=== PATIENT | male | born 1940 | race Caucasian/White ===

== ENCOUNTER 2020-07-30 11:45 | Outpatient (REF) | payer MEDICARE, SELFPAY ==
[2020-07-30 14:41] LABS: Prostate Specific Antigen < 0.05 ng/mL (<0.05-4.0)
== END 2020-07-30 11:46 | disposition home or self-care (01) ==
LOC: HO.10HDL 11:45
PROVIDERS: Visit Provider Physician Assistant
DX: Z85.46 Personal history of malignant neoplasm of prostate (principal); Z12.5 Encounter for screening for malignant neoplasm of prostate
CPT/HCPCS: 84153

== ENCOUNTER 2020-10-15 10:58 | Outpatient (REF) | payer MEDICARE, SELFPAY ==
[2020-10-15 12:27] LABS: Hematocrit 36.1 % (42-52); Hemoglobin 11.9 g/dl (14.0-18.0); Mean Corpuscular Hemoglobin 32.3 pg (27.0-33.0); Mean Corpuscular Volume 98.1 fL (80-98); Mean Platelet Volume 11.8 fL (9.4-12.4); Platelet Count 155 X10*3/uL (160-400); Red Blood Count 3.68 X10*6/uL (4.60-5.80); Red Cell Distribution Width 16.1 % (11.0-16.0); White Blood Count 7.4 X10*3/uL (4.8-10.8)
[2020-10-15 13:07] LABS: Creatinine Urine 166.97 mg/dL; Microalbum/Creatinine Ratio Ur 17.3 ug/mg cr
[2020-10-15 14:14] LABS: Estimated Average Glucose 97 mg/dL
[2020-10-15 14:47] LABS: TSH reflex Free T4 0.92 uIU/mL (0.32-4.0)
[2020-10-15 15:05] LABS: Alanine Aminotransferase 18 U/L (0-40); Albumin Level 4.6 g/dL (3.5-5.0); Alkaline Phosphatase 66 U/L (39-117); Anion Gap 14 (12-20); Aspartate Amino Transferase 20 U/L (5-37); Bilirubin Total 0.6 mg/dL (0.0-1.0); Blood Urea Nitrogen 27 mg/dL (9-16); Calcium 9.3 mg/dL (8.4-10.2); Carbon Dioxide 27 mmol/L (22-29); Chloride 105 mmol/L (96-108); Cholesterol 155 mg/dL; Estimated Glomerular Filt Rate 55; Glucose Fasting 94 mg/dL (60-99); HDL Cholesterol 33 mg/dL; LDL Cholesterol Calculated 95 mg/dl; Potassium 5.1 mmol/L (3.3-5.1); Sodium 141 mmol/L (135-145); Total Protein 7.7 g/dL (6.5-8.0); Triglycerides 135 mg/dL
== END 2020-10-15 10:59 | disposition home or self-care (01) ==
LOC: HO.10HDL 10:58
PROVIDERS: Visit Provider Physician Assistant
DX: I10 Essential (primary) hypertension (principal); N64.4 Mastodynia
CPT/HCPCS: 36415; 80053; 80061; 82043; 83036; 84443; 85027

== ENCOUNTER 2020-11-19 13:50 | Outpatient (REF) | payer MEDICARE, SELFPAY ==
--- NOTE | ~2020-11-19 | MM_ITS ---
EXAMINATION: MM DIAGNOSTIC DIGITAL BREAST TOMOSYNTHESIS, BILATERAL US DIAGNOSTIC ULTRASOUND BREAST, BILATERAL CLINICAL INFORMATION: 80-year-old male with bilateral mastodynia. Patient notes bilateral nipple retraction for many years, not current complaint. No prior breast imaging. COMPARISON: None (current study represents initial baseline exam). TECHNIQUE: Digital breast tomosynthesis is performed in both the craniocaudal and mediolateral oblique views along with computer-aided detection (CAD). Synthesized 2D images are generated from the tomosynthesis. Additional bilateral CC views with nipples in profile performed. Ultrasound bilateral breasts is performed using grayscale imaging and color Doppler without and with harmonics. Both breasts are imaged retroareolar and periareolar regions. FINDINGS: There are scattered areas of fibroglandular density (ACR BI-RADS breast composition Category b). There is gynecomastia type retroareolar parenchymal pattern, greater on left. There is no mass or architectural abnormality. No abnormal calcifications. The axilla are unremarkable. There is bilateral nipple retraction, noted to be a chronic stable finding by patient.There is no skin thickening or coarsening of the stromal markings. Ultrasound demonstrates no cystic or solid mass, architectural abnormality, or focal duct ectasia. No skin thickening or edema tracking in soft tissue planes. Results are discussed with the patient at time of visit. MM/MM tomosynthesis diagnostic BI IMPRESSION: Bilateral gynecomastia, greater on left. ASSESSMENT: BI-RADS 2: Benign RECOMMENDATION: Patient's breast symptoms should be managed based on the clinical impression. If clinically indicated, further evaluation may be considered with surgical consult. Decision to proceed with biopsy should be based on clinical grounds and degree of clinical concern.
== END 2020-11-19 13:51 | disposition home or self-care (01) ==
LOC: HO.MAMMO 13:50
PROVIDERS: PCP Physician Assistant; Visit Provider Physician Assistant
DX: N64.4 Mastodynia (principal)
CPT/HCPCS: 76642; 77062; 77066

== ENCOUNTER 2021-04-23 11:01 | Outpatient (REF) | payer MEDICARE, SELFPAY ==
[2021-04-23 14:06] LABS: Estimated Average Glucose 91 mg/dL; Hemoglobin A1c % 4.8 %
[2021-04-23 14:14] LABS: Hemoglobin 10.9 g/dl (14.0-18.0)
[2021-04-23 14:15] LABS: Hematocrit 33.6 % (42-52); Mean Corpuscular HGB Conc 32.4 g/dl (31.0-36.0); Mean Corpuscular Hemoglobin 33.2 pg (27.0-33.0); Mean Corpuscular Volume 102.4 fL (80-98); Mean Platelet Volume 12.9 fL (9.4-12.4); Platelet Count 144 X10*3/uL (160-400); Red Blood Count 3.28 X10*6/uL (4.60-5.80); Red Cell Distribution Width 16.8 % (11.0-16.0)
[2021-04-23 14:22] LABS: PLT ABN DIST 1
[2021-04-23 14:37] LABS: Alanine Aminotransferase 16 U/L (0-40); Albumin Level 4.5 g/dL (3.5-5.0); Alkaline Phosphatase 60 U/L (39-117); Anion Gap 14 (12-20); Aspartate Amino Transferase 18 U/L (5-37); Bilirubin Total 0.9 mg/dL (0.0-1.0); Blood Urea Nitrogen 19 mg/dL (9-16); Calcium 8.9 mg/dL (8.4-10.2); Carbon Dioxide 25 mmol/L (22-29); Chloride 106 mmol/L (96-108); Cholesterol 144 mg/dL; Estimated Glomerular Filt Rate > 60; Glucose Fasting 88 mg/dL (60-99); HDL Cholesterol 33 mg/dL; LDL Cholesterol Calculated 90 mg/dl; Potassium 4.6 mmol/L (3.3-5.1); Sodium 140 mmol/L (135-145); Total Protein 7.6 g/dL (6.5-8.0); Triglycerides 108 mg/dL
[2021-04-23 14:44] LABS: TSH reflex Free T4 0.45 uIU/mL (0.32-4.0)
== END 2021-04-23 11:02 | disposition home or self-care (01) ==
LOC: HO.10HDL 11:01
PROVIDERS: Visit Provider Physician Assistant
DX: I10 Essential (primary) hypertension (principal)
CPT/HCPCS: 36415; 80053; 80061; 83036; 84443; 85027

== ENCOUNTER 2021-06-16 10:39 | Outpatient (REF) | payer MEDICARE, SELFPAY ==
[2021-06-16 14:17] LABS: Basophils Percent Auto 0.3 % (0-2); Eosinophils Absolute Auto 0.2 X10*3/uL (0.0-0.4); Eosinophils Percent Auto 1.9 % (0-4); Hematocrit 34.2 % (42.0-52.0); Imm Gran Abs Auto 0.16 X10*3/uL (0.00-0.03); Imm Gran Pct Auto 1.5 % (0.0-0.4); Lymphocytes Absolute Auto 1.8 X10*3/uL (1.2-4.9); Lymphocytes Percent Auto 17.1 % (20-40); MANUAL DIFF FLAG SCAN; Mean Corpuscular HGB Conc 32.2 g/dl (31.0-36.0); Mean Corpuscular Hemoglobin 33.3 pg (27.0-33.0); Mean Corpuscular Volume 103.6 fL (80.0-98.0); Mean Platelet Volume 12.4 fL (9.4-12.4); Monocytes Absolute Auto 2.6 X10*3/uL (0.1-1.2); Neutrophils Absolute Auto 5.6 x10*3/uL (2.0-8.3); Neutrophils Percent Auto 54.2 % (45-73); Platelet Count 135 X10*3/uL (160-400); Red Cell Distribution Width 17.2 % (11.0-16.0); SCAN SMEAR FLAG 1; White Blood Count 10.4 X10*3/uL (4.8-10.8)
[2021-06-16 14:36] LABS: SLIDE REVIEW VERIFIED
[2021-06-16 14:39] LABS: Lactate Dehydrogenase 259 U/L (118-273)
[2021-06-16 14:48] LABS: Ferritin 184 ng/mL (20-250)
[2021-06-16 15:40] LABS: Folate > 20.0 ng/mL (> or = 4.0); Vitamin B12 1130 pg/mL (200-900)
== END 2021-06-16 10:40 | disposition home or self-care (01) ==
LOC: HO.10HDL 10:39
PROVIDERS: Visit Provider Physician Assistant
DX: D53.9 Nutritional anemia, unspecified (principal)
CPT/HCPCS: 36415; 82607; 82728; 82746; 83615; 85025

== ENCOUNTER 2021-09-18 06:59 | Day surgery (SDC) | payer MEDICARE, SELFPAY ==
[2021-09-11 15:39] VITALS: BMI 21.2
--- NOTE | 2021-09-17 10:30 | HO.ANESPROP2 ---
Documented by User: Sushma Jc NP 09/17/21 10:30 HPI - Anesthesia Eval Consult details Narrative: 81yo M for Bone Marrow Biopsy PMFSH Active Problems Active Problems: All Active Problems (Updated 09/11/21 @ 15:39 by Amie Crisostomo RN) Nipple pain (Acute) Breast pain, right (Acute) Breast pain, left (Acute) Medicare annual wellness visit, initial (Acute) Hypothyroidism (Acute) BPH (benign prostatic hyperplasia) (Acute) Peripheral vascular disease (Acute) Macrocytic anemia (Acute) Pre-op evaluation (Acute) H/O prostate cancer (Acute) HTN (hypertension) (Acute) Past Medical History Medical History BPH (benign prostatic hyperplasia) COVID-19 vaccine series completed Elevated cholesterol H/O prostate cancer HTN (hypertension) Hypothyroid PVD (peripheral vascular disease) Surgical History Surgical History H/O colonoscopy Hx of cataract extraction Hx of prostatectomy Hx of umbilical hernia repair Social History Social History Housing: House Are you a primary child care center administrator to a significant other at home: No Do you presently have visiting nurse or other home services: No Alcohol intake: former Patient Tobacco Use Status: Never used Tobacco Use of substances other than those prescribed or required for medical reasons: No Have you been hit, kicked, punched, or otherwise hurt by someone within the past year? If so, by whom?: No Are you DNR?: No Advance Directives: Yes Advance Directives Information Provided: Yes (will bring copy of HCP DOS) Advance Directives on File: Yes Advance Directives Date on File: 09/18/21 Recently lost weight without trying: No Eating poorly because of decreased appetite: No Nutrition Risks: Surgical patient >75years service: No Current occupational status: retired Meds Allergies Allergy/AdvReac Type Severity Reaction Status Date / Time No Known Allergies Allergy Verified 09/18/21 07:06 [No Known Allergies*] Home Medications Medication Instructions Recorded Confirmed Last Taken Type ascorbic acid (vitamin C) 1,000 mg 1 g PO DAILY 07/30/21 09/11/21 Unknown History tablet (Vitamin C) aspirin 325 mg capsule 325 mg PO DAILY 07/30/21 09/11/21 Unknown History cholecalciferol (vitamin D3) 50 50 mcg PO DAILY 07/30/21 09/11/21 Unknown History mcg (2,000 unit) capsule (Vitamin D3) cyanocobalamin (vitamin B-12) 1,000 mcg PO DAILY 07/30/21 09/11/21 Unknown History 1,000 mcg capsule ferrous sulfate 325 mg (65 mg 32 mg PO Q OTHER DAY 07/30/21 09/11/21 Unknown History iron) tablet multivitamin 1 tab PO DAILY 07/30/21 09/11/21 Unknown History ketorolac 0.5 % eye drops 1 drp OPHTHALMIC-LEFT DAILY 09/04/21 09/04/21 Unknown History prednisolone acetate 1 % eye 1 drp OPHTHALMIC-LEFT DAILY 09/04/21 09/04/21 Unknown History drops,suspension Exam Exam Date and Time: September 17, 2021 1030 Height,Weight and Vital Signs: Height 5 ft 9 in Weight 65.317 kg Pertinent Lab Results Pertinent Lab Results: Laboratory Tests 09/04/21 09/04/21 10:19 10:19 WBC 11.6 H Hgb 11.5 L Hct 35.5 L Plt Count 133 L Sodium 136 Potassium 4.6 Chloride 102 Carbon Dioxide 26 BUN 25 H Creatinine 1.17 Assessment and Plan Assessment Anesthesia Assessment: Chart Reviewed Documented by User: Mar Puga MD 09/18/21 07:48 PMFSH Active Problems Active Problems: All Active Problems (Updated 09/11/21 @ 15:39 by Amie Crisostomo RN) Nipple pain (Acute) Breast pain, right (Acute) Breast pain, left (Acute) Medicare annual wellness visit, initial (Acute) Hypothyroidism (Acute) BPH (benign prostatic hyperplasia) (Acute) Peripheral vascular disease (Acute) Macrocytic anemia (Acute) Pre-op evaluation (Acute) H/O prostate cancer (Acute) HTN (hypertension) (Acute) S/p bilateral carotid endarterectomy Past Medical History Medical History BPH (benign prostatic hyperplasia) COVID-19 vaccine series completed Elevated cholesterol H/O prostate cancer HTN (hypertension) Hypothyroid PVD (peripheral vascular disease) Family History Family history of problems with anesthesia: No Surgical History Surgical History H/O colonoscopy Hx of cataract extraction Hx of prostatectomy Hx of umbilical hernia repair History of Problems with Anesthesia: No Social History Social History Housing: House Are you a primary child care center administrator to a significant other at home: No Do you presently have visiting nurse or other home services: No Alcohol intake: former Patient Tobacco Use Status: Never used Tobacco Use of substances other than those prescribed or required for medical reasons: No Have you been hit, kicked, punched, or otherwise hurt by someone within the past year? If so, by whom?: No Are you DNR?: No Advance Directives: Yes Advance Directives Information Provided: Yes (will bring copy of HCP DOS) Advance Directives on File: Yes Advance Directives Date on File: 09/18/21 Recently lost weight without trying: No Eating poorly because of decreased appetite: No Nutrition Risks: Surgical patient >75years service: No Current occupational status: retired Meds Allergies Allergy/AdvReac Type Severity Reaction Status Date / Time No Known Allergies Allergy Verified 09/18/21 07:06 [No Known Allergies*] Home Medications Medication Instructions Recorded Confirmed Last Taken Type ascorbic acid (vitamin C) 1,000 mg 1 g PO DAILY 07/30/21 09/11/21 Unknown History tablet (Vitamin C) aspirin 325 mg capsule 325 mg PO DAILY 07/30/21 09/11/21 Unknown History cholecalciferol (vitamin D3) 50 50 mcg PO DAILY 07/30/21 09/11/21 Unknown History mcg (2,000 unit) capsule (Vitamin D3) cyanocobalamin (vitamin B-12) 1,000 mcg PO DAILY 07/30/21 09/11/21 Unknown History 1,000 mcg capsule ferrous sulfate 325 mg (65 mg 32 mg PO Q OTHER DAY 07/30/21 09/11/21 Unknown History iron) tablet multivitamin 1 tab PO DAILY 07/30/21 09/11/21 Unknown History ketorolac 0.5 % eye drops 1 drp OPHTHALMIC-LEFT DAILY 09/04/21 09/04/21 Unknown History prednisolone acetate 1 % eye 1 drp OPHTHALMIC-LEFT DAILY 09/04/21 09/04/21 Unknown History drops,suspension Exam Height,Weight and Vital Signs: Height 5 ft 9 in Weight 65.317 kg Vital Signs Temp Pulse Resp BP Pulse Ox 09/18/21 07:10 98.4 F 87 16 163/73 H 97 Airway Mallampati Class: III (Small mouth opening) TM Dist: >3cm Neck ROM: Full Loose/Missing/Broken Teeth: Yes (Some missing. Extractions) Heart: RRR Lungs: CTAB Assessment and Plan Assessment Anesthesia Assessment: Anesthesia Plan Discussed Final Anesthetic Review Family History of Problems with Anesthesia: No History of Problems with Anesthesia: No NPO: Yes ASA Class: III Final Preanesthetic Review: No Changes in Pt Med Stat, Meds/Allgs Chart Reviewed, Consent Obtained/Reviewed and Anes Risks/Benef Reviewed Patient Risk: Intermediate Procedure Risk: Low Assessment/Block/Sedation in SS: Assess/Block/Sedation-SS Anesthetic Plan Anesthetic Plan: MAC: Disposition: Standard PACU
[2021-09-18 07:10] VITALS: BP 163/73; PULSE 87; RESP 16; TEMP 36.9; O2SAT 97
[2021-09-18] MEDS: Lactated Ringers 1,000 ML 100 ML IVCONT (07:29)
[2021-09-18 08:54] VITALS: BP 89/45; PULSE 64; RESP 18; TEMP 36.8; O2SAT 95
--- NOTE | 2021-09-18 09:01 | PM.HEMONCBM ---
Bone Marrow Aspiration - Bone Marrow Aspiration Procedure:: *Service Date: [09/18/21] Bone marrow aspirate and biopsy under MAC. Pre Op Diagnosis:: Macrocytic anemia. Post Op Diagnosis:: Same. Surgeon:: Simeon Marks Anesthesia:: MAC. Consent:: Informed consent obtained from the patient for the procedure. Pros and cons of biopsy explained. The patient was willing to proceed with the procedure under MAC & local anesthesia. Procedure in Detail:: *Service Date: [_Mis Current Date] *Procedure: Bone marrow aspiration and biopsy under MAC. *Pre Op Dx: Anemia. *Post Op Dx: Same. *Surgeon: simeon Marks. The patient was positioned prone. The left posterior superior iliac spine prepped and draped. Patient was anesthetized under MAC. Under aseptic precautions, 5 ml of 1% lidocaine used for local anesthesia. Bone marrow aspirate was performed. With the Jamshidi needle, a core biopsy obtained without any complications. Specimens were sent for Coronel stain, flow cytometry and cytogenetics. Biopsy was sent for histology. The patient tolerated the procedure well. Bandage was applied and patient was positioned on his back for 10 to 15 minutes after the procedure. The patient was advised to call us if he develops any pain or swelling at the surgical site. Follow up in 2 weeks.
[2021-09-18 09:10] VITALS: BP 109/49; PULSE 58; RESP 18; O2SAT 96
[2021-09-18 09:24] VITALS: BP 115/50; PULSE 62; RESP 18; O2SAT 97
[2021-09-18 09:25] LABS: Bone Marrow SEE SEPARATE REPORT
[2021-09-18 09:33] VITALS: BP 125/58; PULSE 63; RESP 18; TEMP 36.4; O2SAT 100
[2021-09-18 09:50] LABS: Baso%MD 0.2 %; Eos%MD 1.6 %; Hematocrit 29.8 % (42.0-52.0); Hemoglobin 9.8 g/dl (14.0-18.0); IG%MD 2.4 %; Lymph%MD 14.6 %; Mean Corpuscular HGB Conc 32.9 g/dl (31.0-36.0); Mean Corpuscular Hemoglobin 32.9 pg (27.0-33.0); Mono%MD 27.5 %; Neut%MD 53.7 %; Platelet Count 136 X10*3/uL (160-400); Red Blood Count 2.98 X10*6/uL (4.60-5.80); White Blood Count 12.4 X10*3/uL (4.8-10.8)
[2021-09-18 10:22] LABS: Band Neutrophils Percent 6 % (3-5); Eosinophils Absolute Manual 0.2 X10*3/uL (0.0-0.4); Eosinophils Percent Manual 2 % (0-4); Lymphocytes Absolute Manual 1.9 X10*3/uL (1.2-4.9); Lymphocytes Percent Manual 15 % (20-40); Macrocytosis 1+ (5-14) /OIF; Microcytosis 1+ (5-14) /OIF; Monocytes Percent Manual 24 % (2-11); Neutrophils Absolute Manual 7.3 X10*3/uL (2.0-8.3); Neutrophils Percent Manual 53 % (45-73); Platelet Estimate SLIGHTLY DECREASED (NORMAL); Platelet Morphology Comment NORMAL; RBC Morphology NOTED; Spherocytes 1+ (0-2) /OIF
== END 2021-09-18 10:06 | disposition home or self-care (01) ==
PROVIDERS: Pathology Anatomic Pathology & Clinical Pathology; PCP Physician Assistant; Visit Provider Internal Medicine Medical Oncology
PROC: (CPT 38221; principal; 2021-09-18 08:00)
DX: D53.9 Nutritional anemia, unspecified (principal); I10 Essential (primary) hypertension; Z79.899 Other long term (current) drug therapy; Z85.46 Personal history of malignant neoplasm of prostate
CPT/HCPCS: 38222; 36415; 85007; 85027; 85097; 88184; 88185; 88237; 88264; 88305; 88311; 88313; 88342; 88374; J1642; J2250

== ENCOUNTER 2021-10-21 10:23 | Outpatient (REF) | payer MEDICARE, SELFPAY ==
[2021-10-21 11:33] LABS: Estimated Average Glucose 88 mg/dL; Hemoglobin A1c % 4.7 %
[2021-10-21 12:03] LABS: Alanine Aminotransferase 17 U/L (0-40); Albumin Level 4.5 g/dL (3.5-5.0); Alkaline Phosphatase 65 U/L (39-117); Anion Gap 14 (12-20); Aspartate Amino Transferase 20 U/L (5-37); Bilirubin Total 0.7 mg/dL (0.0-1.0); Blood Urea Nitrogen 23 mg/dL (9-16); Calcium 9.2 mg/dL (8.4-10.2); Carbon Dioxide 26 mmol/L (22-29); Chloride 102 mmol/L (96-108); Cholesterol 160 mg/dL; Estimated Glomerular Filt Rate 57; Glucose Fasting 98 mg/dL (60-99); HDL Cholesterol 29 mg/dL; LDL Cholesterol Calculated 100 mg/dl; Potassium 4.7 mmol/L (3.3-5.1); Sodium 137 mmol/L (135-145); Total Protein 7.7 g/dL (6.5-8.0); Triglycerides 156 mg/dL
[2021-10-21 12:31] LABS: Prostate Specific Antigen Scr < 0.05 ng/mL (<0.05-4.0); TSH reflex Free T4 0.78 uIU/mL (0.32-4.0)
== END 2021-10-21 10:24 | disposition home or self-care (01) ==
LOC: HO.LAB 10:23
PROVIDERS: PCP Physician Assistant; Visit Provider Physician Assistant
DX: Z12.5 Encounter for screening for malignant neoplasm of prostate (principal); E03.9 Hypothyroidism, unspecified; I10 Essential (primary) hypertension
CPT/HCPCS: 36415; 80053; 80061; 83036; 84153; 84443

== ENCOUNTER 2022-01-22 12:22 | Emergency (ER) | payer MEDICARE, SELFPAY ==
--- NOTE | ~2022-01-22 | XR_ITS ---
EXAMINATION: XR FINGER, RIGHT CLINICAL INFORMATION: Question of foreign body right index finger COMPARISON: None TECHNIQUE: 4 views of the right index finger. FINDINGS: Degenerative changes are present at the DIP joints most marked in the second digit with large osteophytes. Degenerative changes are also present at the second and third metacarpal phalangeal joint and the radiocarpal joint. No radiopaque opaque foreign bodies are seen. XR/XR finger RT min 2V IMPRESSION: Degenerative changes without fracture or retained foreign body.
[2022-01-22 12:27] VITALS: BP 164/73; PULSE 82; RESP 16; TEMP 36.2; O2SAT 98; BMI 20.7
[2022-01-22 13:54] VITALS: BP 130/83; PULSE 79; RESP 14; O2SAT 97
[2022-01-22] MEDS: Lidocaine HCl 2 % MPF 5 ML VIAL SUBCUT (14:26)
[2022-01-22] MEDS: Diphth,Pertus(ACell),Tet Adult 0.5 ML SYRINGE IM (14:27)
--- NOTE | 2022-01-22 14:45 | PC.NURSE ---
xray staff behind on their assignments. still waiting on xr.
--- NOTE | 2022-01-22 14:49 | ED.EXTPRO ---
HPI - Extremity Problem General Chief complaint: Extremity Problem Stated complaint: infection in r index finger Time Seen by Provider: 01/22/22 14:12 Source: patient Mode of arrival: ambulatory History of Present Illness HPI Narrative: 81-year-old male states that 2 days ago he was working with some plywood and a piece of wood got stuck into his right index finger and he feels like there may still be a piece inside as it has become more swollen despite soaking his finger. He thinks that his last tetanus was over 10 years ago. Related Data Home Medications Medication Instructions Recorded Confirmed ascorbic acid (vitamin C) 1,000 mg 1 g PO DAILY 07/30/21 12/12/21 tablet (Vitamin C) aspirin 325 mg capsule 325 mg PO DAILY 07/30/21 12/12/21 cholecalciferol (vitamin D3) 50 50 mcg PO DAILY 07/30/21 12/12/21 mcg (2,000 unit) capsule (Vitamin D3) cyanocobalamin (vitamin B-12) 1,000 mcg PO DAILY 07/30/21 12/12/21 1,000 mcg capsule ferrous sulfate 325 mg (65 mg 32 mg PO Q OTHER DAY 07/30/21 12/12/21 iron) tablet multivitamin 1 tab PO DAILY 07/30/21 12/12/21 Previous Rx's Medication Instructions Recorded levothyroxine 88 mcg tablet 88 mcg PO QAM #90 tabs 12/01/21 atorvastatin 40 mg tablet 40 mg PO DAILY #90 tabs 12/26/21 amoxicillin 875 mg-potassium 1 tab PO Q12H 5 days #10 tabs 01/22/22 clavulanate 125 mg tablet Allergies Allergy/AdvReac Type Severity Reaction Status Date / Time No Known Allergies Allergy Verified 12/12/21 11:53 [No Known Allergies*] Review of Systems Review of Systems: Pertinent positives and negatives as stated in HPI 10 point review of systems is otherwise negative. [facility] Past Medical History Source: nursing notes reviewed Medical History BPH (benign prostatic hyperplasia) COVID-19 vaccine series completed Elevated cholesterol Hypothyroid PVD (peripheral vascular disease) Surgical History H/O colonoscopy History of carotid endarterectomy Hx of cataract extraction Hx of prostatectomy Hx of umbilical hernia repair Social History Social History Household Members: Spouse Housing: House Are you a primary medicare compliance auditor to a significant other at home: No Do you presently have visiting nurse or other home services: No Alcohol intake: former Patient Tobacco Use Status: Never used Tobacco Advance Directives: Yes Advance Directives on File: Yes Advance Directives Date on File: 09/18/21 service: No Current occupational status: retired Physical Exam Vital Signs: Vital Signs: Last Vital Signs Temp 97.2 F 01/22/22 12:27 Pulse 79 01/22/22 13:54 Resp 14 01/22/22 13:54 BP 130/83 01/22/22 13:54 Pulse Ox 97 01/22/22 13:54 O2 Del Method 01/22/22 13:54 BMI result Body Mass Index 20.7 VITAL SIGNS: Reviewed. GENERAL: Well developed, well nourished, in no acute distress. HEAD: Normocephalic/atraumatic EYES: PERRLA, EOMI OROPHARYNX: no oral lesions noted, posterior pharynx clear LUNGS: Normal breath sounds. No adventitious sounds or accessory muscle use. SpO2<97> CARDIOVASCULAR: Regular rate and rhythm without noted murmurs ABDOMEN: Soft, non-tender, non-distended with bowel sounds. MUSCULOSKELETAL: No tenderness, deformities, or effusions noted on gross inspection. EXTREMITIES: No cyanosis, clubbing or edema; RIGHT INDEX FINGER: It is quite swollen over the radial aspect of the right index finger near the DIP SKIN: Inspection of the skin reveals no rashes NEUROLOGIC: Alert and oriented x 4. Course Course Course Narrative: 81-year-old male with history and clinical presentation consistent with possible foreign body within the right index finger but obvious swelling and inflammation after a piece plywood was stuck inside of his finger. Patient underwent x-ray which on my interpretation as the official read is still pending and not appreciating the foreign body. Incision and drainage was performed with minimal purulence drainage and inability to obtain any foreign body or visualize any foreign body. Patient was provided with antibiotics given the proximity of the joint as well as being provided with a referral to see Dr. Cintron. Procedures Abscess I/D Site: hand Side (if applicable): right Local Anesthetic: lidocaine 1% Amount of anesthesia used (mL): 5 Technique: incised with blade Amount of fluid expressed (mL): 1 Sent for culture/gram staining?: No Irrigation: No Packing used?: none Discharge Plan Discharge Clinical Impression: Finger infection Patient Disposition: Home, Self-Care Instructions: Incision and Drainage (ED) Additional Instructions: 1. Resume all home medications as prescribed. 2. Complete the entire course of antibiotics as prescribed. 3. Recommend that you use [id number] Tylenol/ibuprofen as needed for pain control. You may soak the finger once daily in Epsom salt solution and then cover with a Band-Aid. 4. You have been provided a referral for a hand specialist and should call the office today and set up an appointment for re-evaluation. Please do not hesitate to return to the emergency room if you notice there is no improvement. Prescriptions: New amoxicillin-pot clavulanate 875-125 mg tablet 1 tab PO Q12H 5 Days Qty: 10 0RF Rx Instructions: Next 0 should start tomorrow, initial dose given in the emergency room. No Action levothyroxine 88 mcg tablet 88 mcg PO QAM Qty: 90 1RF atorvastatin 40 mg tablet 40 mg PO DAILY Qty: 90 0RF multivitamin Tablet 1 tab PO DAILY ascorbic acid (vitamin C) [Vitamin C] 1,000 mg Tablet 1 g PO DAILY ferrous sulfate 325 mg (65 mg iron) Tablet 32 mg PO Q OTHER DAY Rx Instructions: 1/2 tablet every other day cholecalciferol (vitamin D3) [Vitamin D3] 50 mcg (2,000 unit) Capsule 50 mcg PO DAILY cyanocobalamin (vitamin B-12) 1,000 mcg Capsule 1,000 mcg PO DAILY aspirin 325 mg Capsule 325 mg PO DAILY Referrals: Douglas Schultz PA-C [Primary Care Provider] - Laura Cintron MD [Physician] - (?Rt index finger foreign body, none seen on XR or I&D. Started on Augmentin.)
[2022-01-22 14:52] VITALS: BP 142/69; PULSE 75; RESP 14; TEMP 36.7; O2SAT 97
[2022-01-22] MEDS: Amoxicillin/Potassium Clav 875 MG TABLET PO (15:09)
== END 2022-01-22 15:15 | disposition home or self-care (01) ==
PROVIDERS: Emergency Provider Student in an Organized Health Care Education/Training Program; PCP Physician Assistant
DX: M79.644 Pain in right finger(s) (principal); L03.011 Cellulitis of right finger
CPT/HCPCS: 10060; 73140; 90471; 90715; 99283; 99284

== ENCOUNTER 2022-01-27 09:12 | Outpatient (REF) | payer MEDICARE, SELFPAY ==
--- NOTE | ~2022-01-27 | XR_ITS ---
EXAMINATION: XR HAND, RIGHT CLINICAL INFORMATION: Pain COMPARISON: None TECHNIQUE: PA, lateral, and oblique views of the right hand. FINDINGS: Lateral view is limited due to patient positioning. There is abnormal appearance of the lunate question related to old trauma. There is old trauma to the fifth metacarpal bone. No acute fracture or dislocation is seen. There is arthritis at the DIP joint of the second finger and first INTERMEDIATE joint and radiocarpal joint. There is slight ulnar deviation of the DIP joint of the second finger. There are cystic changes versus osteopenia in the wrist. Soft tissues are unremarkable. XR/XR hand RT min 3V IMPRESSION: Question old trauma to the lunate and fifth metacarpal bone. Arthritis at the DIP joint of the second finger, first INTERMEDIATE joint and radiocarpal joint. Cystic changes versus osteopenia in the wrist.
== END 2022-01-27 09:13 | disposition home or self-care (01) ==
LOC: HO.HOSX 09:12
PROVIDERS: Visit Provider Physician Assistant
DX: M79.644 Pain in right finger(s) (principal); S61.230A Puncture wound without foreign body of right index finger without damage to nail, initial encounter; W45.8XXA Other foreign body or object entering through skin, initial encounter; Y93.H3 Activity, building and construction; Y92.007 Garden or yard of unspecified non-institutional (private) residence as the place of occurrence of the external cause; Y99.8 Other external cause status; L08.89 Other specified local infections of the skin and subcutaneous tissue
CPT/HCPCS: 73130; 99202

== ENCOUNTER → 2022-02-02 10:08 | Outpatient (BNVA) | payer MEDICARE, SELFPAY | PROVIDERS: PCP Physician Assistant; Visit Provider Physician Assistant | DX: L08.9 Local infection of the skin and subcutaneous tissue, unspecified (principal) | CPT/HCPCS: 99212 ==

== ENCOUNTER 2022-09-15 14:36 | Outpatient (REF) | payer MEDICARE, SELFPAY ==
--- NOTE | ~2022-09-15 | XR_ITS ---
EXAMINATION: XR CHEST CLINICAL INFORMATION: Left-sided chest pain and tenderness. Shortness of breath. COMPARISON: None TECHNIQUE: 2 views of the chest were obtained. FINDINGS: The lungs are well expanded. Small to moderate left-sided pleural effusion with associated airspace opacity. There may be mild pleural thickening at the periphery of the left upper hemithorax. The right lung is clear. No pneumothorax. The cardiomediastinal silhouette is within normal limits. Mild degenerative changes of the spine. XR/XR chest 2V IMPRESSION: Small to moderate left pleural effusion with associated airspace opacity which could represent atelectasis or pneumonia. There may be mild pleural thickening at the periphery of the left upper hemithorax.
== END 2022-09-15 14:37 | disposition home or self-care (01) ==
LOC: HO.XRAY 14:36
PROVIDERS: PCP Physician Assistant; Visit Provider Internal Medicine Medical Oncology
DX: R07.9 Chest pain, unspecified (principal)
CPT/HCPCS: 71046

== ENCOUNTER 2022-09-23 11:13 | Day surgery (SDC) | payer MEDICARE, SELFPAY ==
--- NOTE | ~2022-09-23 | XR_ITS ---
EXAMINATION: XR CHEST CLINICAL INFORMATION: Status post left thoracentesis COMPARISON: Chest x-ray of September 15, [address] scan of September 23, 2022 TECHNIQUE: AP portable view of the chest was obtained. FINDINGS: No significant left pleural effusion is seen postthoracentesis. There is atelectatic change seen at the left lung base. No pneumothorax is appreciated. Heart normal size. No evidence of pulmonary edema. Old healed right rib fracture. XR/XR chest 1V IMPRESSION: Status post left thoracentesis with no significant residual pleural effusion identified.. No pneumothorax. Left base atelectasis.
--- NOTE | ~2022-09-23 | US_ITS ---
EXAMINATION: US LEFT THORACENTESIS CLINICAL INFORMATION: Left pleural effusion. COMPARISON: CT scan of same day. TECHNIQUE: Ultrasound-guided left thoracentesis. FINDINGS: Informed consent was obtained from the patient prior to the procedure. During this process, the procedure and potential alternatives were explained, along with the intended outcome and benefits. The risks of the procedure, as well as the risk of not doing the procedure, were discussed. The patient was given the opportunity to ask questions regarding the procedure and appeared competent to make medical decisions. A signed consent form which documents this discussion was placed in the medical record. Using sterile technique and ultrasound guidance, a 4 Mongolian Yueh needle was directed into the left pleural space. A total of 1.5 L of serosanguineous fluid was drained. Fluid samples were sent for laboratory studies. Patient tolerated the procedure without difficulty. No significant remaining fluid is seen within the left pleural space with a small amount of complex fluid. US/US thoracentesis IMPRESSION: Left thoracentesis with removal of 1.5 L of serosanguineous fluid.
--- NOTE | ~2022-09-23 | CT_ITS ---
EXAMINATION: CT CHEST WITH CONTRAST CLINICAL INFORMATION: Pleural effusion. COMPARISON: Chest x-ray 09/15/2022. TECHNIQUE: Multidetector volumetric CT imaging of the chest was obtained after the administration of 65 mL of Omnipaque 350 intravenous contrast without immediate adverse reactions. Axial MIP volume rendering provided. Sagittal and coronal reformatted images were obtained. This CT examination was performed using dose optimization techniques as appropriate, variously including the following: *Automated exposure control *Adjustment of mA and/or kV according to patient size (this includes techniques or standardized protocols for targeted exams where dose is matched to indication/reason for exam; i.e. extremities or head) *Use of iterative reconstruction technique DLP: 108 mGy-cm FINDINGS: LUNGS: Mild centrilobular emphysema. Cystic honeycombing with increased subpleural reticulation in the periphery of the posterior right upper lobe, right lower lobe, and anterior left upper lobe. The left lower lobe is not well assessed due to atelectasis. There is no dominant pulmonary nodule. There is a 3.6 x 2.6 cm left upper lobe mass invading the chest wall pleura and mediastinal pleura. MEDIASTINUM: Mediastinal invasion as above. No bulky mediastinal adenopathy. The ascending aorta and aortic arch are normal in caliber. The descending aorta is aneurysmal at the thoracoabdominal junction measuring 3.5 x 2.8 cm. There is diffuse irregular atherosclerotic plaque throughout the aortic arch and descending aorta. There is ulcerated plaque causing a saccular aneurysm of the juxtarenal aorta measuring 1.3 cm on the left. PLEURA: There is a moderate nonsimple pleural effusion causing compressive atelectasis of the left lower lobe. There are abnormal areas of enhancing irregularly thickened pleural nodularity measuring 3.7 x 1.7 cm in the anterior left upper chest, 5.5 x 0.7 cm posterolateral left lower chest and 1.9 x 1.3 cm in the anterior left lower chest. AXILLA: No axillary adenopathy. UPPER ABDOMEN: Simple right renal cyst. No imaging follow-up is recommended. OSSEOUS STRUCTURES: No suspicious osseous lesions. CT/CT chest w IV con IMPRESSION: 3.6 x 2.6 cm left upper lobe mass invading the chest wall pleura and mediastinal pleura suspicious for pulmonary malignancy. Additional areas of abnormal parietal pleural thickening in the left hemithorax suspicious for pleural metastatic disease. Recommend correlation with fluid cytology. Biopsy may be necessary for diagnosis. This was called to Dr. Marks at 8:30 AM on 09/29/2022. 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 Moderate nonsimple left pleural effusion suspicious for malignant effusion. Mild emphysema. Mild pulmonary fibrosis. 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 Consider referral to a vascular specialist. Fleischner guidelines were followed.
[2022-09-23 11:32] VITALS: BMI 20.7
[2022-09-23 12:28] LABS: Prothrombin Time 11.4 SEC (10.0-13.1)
[2022-09-23] MEDS: iohexoL 350 MG/ML 100 ML INFUS..BTL IV (13:41)
[2022-09-23 14:27] VITALS: BP 136/68; PULSE 90; RESP 18; TEMP 36.9; O2SAT 96
[2022-09-23 14:42] VITALS: BP 122/55; PULSE 90; RESP 18; O2SAT 94
[2022-09-23] MEDS: Lidocaine HCl 1 % MPF 5 ML VIAL SUBCUT (14:45)
[2022-09-23 14:55] VITALS: BP 116/62; PULSE 92; RESP 18; O2SAT 94
[2022-09-23 15:25] VITALS: BP 111/60; PULSE 85; RESP 18; O2SAT 94
[2022-09-23 15:35] LABS: MN% 85.4 %; PMN% 14.6 %; RBC Pleural Fluid 0.174 X10*3/uL; WBC Pleural Fluid 1.961 X10*3/uL
[2022-09-23 15:55] VITALS: BP 113/69; PULSE 91; RESP 18; TEMP 36.8; O2SAT 95
[2022-09-23 16:14] LABS: Lymphocytes Pleural Fluid 88 %; Monocytes Pleural Fluid 5 %; Neutrophils Pleural Fluid 5 %
[2022-09-23 16:15] LABS: BF Shift QC OK YES; Other Cells Plerual Fl 2 %
[2022-09-24 05:22] LABS: LDH Pleural Fluid 1139 U/L; Total Protein Pleural Fluid 5.5 GM/DL
[2022-10-26 11:05] LABS: FISH ALK 2P 23 Rearrangement QNS; FISH NSCLC ROS1 6q22 QNS; FISH RET Gene Rearrangement QNS; FISH,MET Amplification QNS
== END 2022-09-23 16:38 | disposition home or self-care (01) ==
PROVIDERS: Internal Medicine Medical Oncology; Radiology Diagnostic Radiology; PCP Physician Assistant; Visit Provider Radiology Diagnostic Radiology
DX: D49.9 Neoplasm of unspecified behavior of unspecified site (principal); J91.0 Malignant pleural effusion; J98.11 Atelectasis; D53.9 Nutritional anemia, unspecified; Z79.82 Long term (current) use of aspirin; Z79.899 Other long term (current) drug therapy
CPT/HCPCS: 32555; 36415; 71045; 71260; 81445; 83615; 84157; 85610; 85730; 87070; 87073; 87205; 88112; 88305; 88341; 88342; 88360; 88374; 89051

== ENCOUNTER 2022-10-13 08:57 | Outpatient (REF) | payer MEDICARE, SELFPAY ==
--- NOTE | ~2022-10-13 | PE_ITS ---
EXAMINATION: Fluorine-18 FDG PET/CT Scan CLINICAL INDICATION: Initial treatment management. Malignant left-sided pleural effusion and left-sided lung cancer. PROCEDURE: 63 minutes following the intravenous administration of 15.2 mCi of fluorine 18 FDG, images from the base of the skull to the mid thighs were obtained using a combined PET/CT scanner with CT scan based attenuation correction. No intravenous contrast was administered. Transverse, coronal, sagittal, and volume reconstruction projections were obtained. The patient's blood glucose as determined by a finger stick, was 94 mg/dl immediately prior to injection. The radiotracer was injected intravenously through left antecubital superficial vein, without any complications. Total CT exam dose-length product 298.76 mGy-cm * These CT images were obtained using dose optimization techniques as appropriate, variously including the following: Automated exposure control * Adjustment of mA and/or kV according to patient size (this includes techniques or standardized protocols for targeted exams where dose is matched to indication/reason for exam; i.e. extremities or head) * Use of iterative reconstruction technique COMPARISON: CT of the chest done on 09/23/2022. FINDINGS: NECK AND VISUALIZED HEAD: No FDG avid disease. THORAX: Abnormal. Diffuse nodular solid masslike pleural thickening associated with intense FDG avidity is noted along the mid anterior medial aspect of the left pleural space inseparable from the mediastinal pleural surface with SUV max of 9.4 (84/267). The dominant nodular masslike pleural thickening in this region measures approximately 4.4 cm at its maximum transverse dimension (219/698). Additional FDG avid nodular pleural thickening is also noted within the anterior mid lateral aspect of the pleural space as well as the base of the pleural space, consistent with additional sites of disease. Specific note is made of intense FDG avid solid-appearing soft tissue mass measuring approximately 2.6 x 1.3 cm with SUV max of 7.3 seen along the peridiaphragmatic region, most consistent with pleural-based solid mass along the anterior inferior costophrenic sulcus. In addition, multi loculated simple-appearing ipsilateral pleural effusion, partial collapse consolidation of left lower lobe of the lung is noted as well. No pleural effusions shows intense FDG avidity at the base of the left hemithorax with SUV max of 7.1 (129/267). Nonspecific groundglass opacities are present within the aerated part of both left upper and left lower lobe of the lung. Subcentimeter nodular opacity without any FDG avidity is noted at superior segment of right lower lobe of the lung (221/698), with underlying subpleural cystic changes. No definite evidence of any suspicious right-sided lung nodule or mass. No evidence of any FDG avid mediastinal, hilar, axillary or internal mammary lymphadenopathy. ABDOMEN AND PELVIS: Remarkable for intense focal FDG avidity at the right-sided large bowel, likely proximal ascending colon with SUV max of 6.5 (167/267). No FDG avid focal liver, splenic or adrenal disease. MUSCULOSKELETAL: Diffusely abnormal. Moderately intense diffuse increased FDG avidity is noted throughout the entire axial skeleton and both proximal femur, nonspecific in appearance, may represent bone marrow infiltrative, replacement process versus physiologic hyperplastic bone marrow. 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 VASCULAR: Diffuse atherosclerotic disease of the aorta including coronary arterial calcific atherosclerotic disease. Suprarenal mild abdominal aortic aneurysm measuring 3.5 x 2.7 cm. Infrarenal focal bulge is noted at the level of the region of the left renal artery measuring approximately 3.7 cm at its maximum transverse dimension. PET/PET CT fusion skull to thigh IMPRESSION: 1. Extensive nodular masslike multifocal FDG avid pleural thickenings are present throughout the entire left hemithorax with most pronounced changes seen at anterior, medial aspect of the mid part of the left hemithorax with the dominant solid-appearing soft tissue mass measuring approximately 4.4 cm at its maximum transverse dimension with SUV max of 9.4, inseparable from the adjacent mediastinal pleura. Additional solid masslike FDG avid pleural thickenings are also present especially involving anterior inferior costophrenic sulcus, measures approximately 2.6 x 1.3 cm with SUV max of 7.3. In addition, multiloculated FDG avid pleural effusion is also present with most pronounced changes seen within the base of the pleural space. The findings are most consistent with either primary or metastatic pleural malignancy. 2. Partial collapse consolidation involving both left lower greater than upper lobes. 3. No FDG avid mediastinal and/or hilar or axillary or internal mammary lymphadenopathy or FDG avid disease within the contralateral right lung or pleural space. 4. Subcentimeter non-FDG avid nodular opacity within the superior segment of right lower lobe of the lung with underlying subpleural cystic changes. 5. Indeterminate moderately intense FDG avidity involving likely proximal ascending colon at right iliac fossa with SUV max of 6.5, for which direct visualization/colonoscopy is recommended for further clarification, if not recently performed. 6. Moderately intense diffuse increased FDG avidity throughout the entire axial skeleton as well as both proximal femur, may represent bone marrow infiltrative/replacement process versus physiologic hyperplastic changes. 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
== END 2022-10-13 08:58 | disposition home or self-care (01) ==
LOC: HO.PET 08:57
PROVIDERS: PCP Physician Assistant; Visit Provider Internal Medicine Medical Oncology
DX: Z13.89 Encounter for screening for other disorder (principal)

== ENCOUNTER 2022-10-26 10:09 | Day surgery (SDC) | payer MEDICARE, SELFPAY ==
[2022-10-26] VITALS (9 sets, daily range): BP systolic 93–131; BP diastolic 52–62; PULSE 90–104; RESP 16–18; TEMP 36.8–37.1; O2SAT 92–94; BMI 20.7
--- NOTE | 2022-10-26 | CT_ITS ---
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 COMPARISON: PET/CT fusion skull through thigh 10/13/2022. TECHNIQUE: Following explaining CT fluoroscopy-guided posterior iliac crest biopsy procedure, benefits and risks, a written consent was obtained. Patient was placed prone and preliminary CT imaging was obtained. Markers were placed along the posterior right iliac spine and repeat CT imaging was obtained. An optimal marker was selected and marked on the skin. The marked site was cleaned and draped in the usual sterile manner with 2% chlorhexidine solution. 1% lidocaine was injected at the puncture site. Through a small skin incision, a 16-gauge guide needle was advanced from the skin to the bony cortex of the posterior iliac crest. Using a simple drill, the needle was advanced into the posterior iliac crest bone marrow. Two syringes containing heparin and EDTA were attached to the needle and simple bone marrow aspirate was performed. Subsequently, a longer 16-gauge needle was advanced coaxially and a 2-pass core biopsy of the bone marrow was obtained. Postprocedure, both needles were withdrawn and complete hemostasis was achieved at the puncture site. Sample collected was handed to the music box mechanic for further processing. Simple dressing was applied postprocedure. Patient tolerated the procedure extremely well. Conscious sedation was given to the patient and patient monitored during and after the exam. CT/CT biopsy aspirate bone marrow FINDINGS/IMPRESSION: On the urinary CT imaging, there is no cortical bony abnormality seen. There is some groundglass appearance in the bone marrow. SI joints are normal. Colonic diverticulosis seen. Successful CT fluoroscopy-guided right posterior iliac crest bone marrow biopsy performed.
--- NOTE | ~2022-10-26 | XR_ITS ---
EXAMINATION: XR CHEST CLINICAL INFORMATION: Assess for recurrent pleural effusion. COMPARISON: 09/23/2022 chest radiograph. TECHNIQUE: Frontal view of the chest was obtained. FINDINGS: There has been interval development of a small left pleural effusion with superjacent hazy opacities. The right lung is clear. The heart and mediastinal structures are unremarkable. XR/XR chest 1V IMPRESSION: Small left pleural effusion with probable layering represents interval increase from the previous study.
[2022-10-26 11:45] LABS: INTERNATIONAL NORM RATIO 1.2 (0.9-1.1); Prothrombin Time 13.8 SEC (10.0-13.1)
[2022-10-26 11:46] LABS: Anion Gap 14 (12-20); Blood Urea Nitrogen 14 mg/dL (9-16); Carbon Dioxide 26 mmol/L (22-29); Chloride 101 mmol/L (96-108); Creatinine Clr Calc Pharmacy 57.5; Estimated Glomerular Filt Rate > 60; Potassium 3.9 mmol/L (3.3-5.1); Sodium 137 mmol/L (135-145)
[2022-10-26 11:47] LABS: Partial Thromboplastin Time 41.4 SEC (26.0-36.4)
[2022-10-26 13:34] LABS: Bone Marrow SEE SEPARATE REPORT
== END 2022-10-26 16:13 | disposition home or self-care (01) ==
PROVIDERS: Internal Medicine Medical Oncology; Pathology Anatomic Pathology & Clinical Pathology; PCP Physician Assistant; Visit Provider Radiology Diagnostic Radiology
PROC: (CPT 38221; principal; 2022-10-26 11:30)
DX: C34.12 Malignant neoplasm of upper lobe, left bronchus or lung (principal); J90 Pleural effusion, not elsewhere classified; D69.6 Thrombocytopenia, unspecified; D53.9 Nutritional anemia, unspecified; D72.829 Elevated white blood cell count, unspecified; E03.9 Hypothyroidism, unspecified; Z79.899 Other long term (current) drug therapy
CPT/HCPCS: 36415; 38222; 71045; 80051; 81455; 82565; 84520; 85610; 85730; 88184; 88185; 88237; 88264; 88280; 88305; 88311; 88313; 88341; 88342; 88374; 99152; J1642; J2250; J3010

== ENCOUNTER 2022-10-29 06:48 | Day surgery (SDC) | payer MEDICARE, SELFPAY ==
--- NOTE | ~2022-10-29 | IR_ITS ---
PROCEDURE: IR INSERTION OF TUNNEL CATHETER CLINICAL INFORMATION: Left lung adenocarcinoma. COMPARISON: 10/26/2022 TECHNIQUE: Right internal jugular port catheter placement with ultrasound and fluoroscopic guidance. FINDINGS: Informed consent was obtained from the patient prior to the procedure. During this process, the procedure and potential alternatives were explained along with the intended outcome and benefits. The risks of the procedure, including the possibility of an unsuccessful procedure, as well as the risk of not doing the procedure, were discussed. The patient was given the opportunity to ask questions regarding the procedure and appeared competent to make decisions. A signed consent form documenting this discussion was placed in the medical record. A time-out procedure was performed. The patient was placed supine on the fluoroscopy table. The right neck and chest were prepped and draped in usual sterile fashion. The right neck was evaluated for venous access site and the right internal jugular vein is seen to be patent. An ultrasound PACS image was obtained. ?All elements of maximal sterile barrier technique followed including use of cap, mask, sterile gown, sterile gloves, a sterile full body drape and hand hygiene. Also followed skin preparation with 2% chlorhexidine for cutaneous antisepsis, and sterile ultrasound preparation with sterile gel and probe cover when applicable.? Venous access was achieved into the right IJ vein using ultrasound and fluoroscopic guidance with a 5 F Micropuncture set. A small skin lexus was made at the access site. The 0.018 wire was exchanged for a 0.035 in J wire, which was advanced to the IVC to maintain access during dissection of the pocket and the tunneling process. Attention was then directed to the chest approximately 2 cm below the clavicle. Regular 1% lidocaine and lidocaine with 1:100,000 epinephrine was used for local anesthetic and a 3 cm incision was made. The pocket was dissected to the size of the port and then a subcutaneous tunnel was made to connect to the venotomy site. The catheter was pulled through the tunnel. The micropuncture set sheath in the IJ was exchanged over the wire for a peel-away sheath. The inner dilator and J wire were removed and the catheter was advanced through the peel away sheath. The peel away sheath was subsequently removed. The catheter was then adjusted so its tip lies within the superior right atrium. The catheter was trimmed and connected to the port reservoir. The port reservoir was then sutured into the port pocket with a 2-0 monofilament suture. The port was aspirated and flushed, then packed with 5 mL of heparin solution. The incision site was sutured using 4.0 Polysorb for the subcuticular layer. Tissue adhesive was then placed over the incision site. The patient tolerated the procedure without difficulty. FLUOROSCOPY TIME: 1.1 minutes. DAP: 60 cGycm2. CATHETER LENGTH: 23.5 cm. CONSCIOUS SEDATION: The patient received intravenous conscious sedation under my direct supervision. A registered nurse monitored the patient and the patient's vital signs throughout the procedure. The total sedation time was 60 minus minutes. A total of 1 mg of Versed and 25 mcg fentanyl was given for good effect. IR/IR cvc insert tunnel w prt/conservation engineer IMPRESSION: Placement of 6.6-Eritrean right internal jugular port catheter as described. Catheter tip lies within the superior right atrium.
[2022-10-29 07:14] VITALS: BMI 20.7
[2022-10-29] MEDS: Lidocaine HCl 1 % MPF 5 ML VIAL 20 ML SUBCUT (10:09)
[2022-10-29] MEDS: Lidocaine HCl 1% PF/Epi 1:200,000 30 ML VIAL 10 ML SUBCUT (10:10)
[2022-10-29 10:38] VITALS: BP 136/71; PULSE 105; RESP 18; TEMP 37.1; O2SAT 90
[2022-10-29] MEDS: ondansetron HCL 4 MG/2 ML VIAL IVPUSH (10:49)
[2022-10-29 10:54] VITALS: BP 123/76; PULSE 102; RESP 18; O2SAT 96
[2022-10-29 11:10] VITALS: BP 116/66; PULSE 93; RESP 16; O2SAT 96
[2022-10-29 11:25] VITALS: BP 115/69; PULSE 98; RESP 16; TEMP 36.4; O2SAT 94
== END 2022-10-29 12:07 | disposition home or self-care (01) ==
LOC: HO.SSS 06:48
PROVIDERS: PCP Physician Assistant; Visit Provider Radiology Diagnostic Radiology
DX: C34.92 Malignant neoplasm of unspecified part of left bronchus or lung (principal); J91.0 Malignant pleural effusion; Z79.899 Other long term (current) drug therapy
CPT/HCPCS: 36561; 38222; 99152; 99153; C1769; C1788; J0690; J1642; J2250; J2405; J3010

== ENCOUNTER 2022-11-06 08:46 | Inpatient (IN) | payer MEDICARE, SELFPAY ==
[2022-11-06] VITALS (15 sets, daily range): BP systolic 105–120; BP diastolic 50–78; PULSE 75–90; RESP 16–20; TEMP 36.5–37.2; O2SAT 93–99; BMI 20.7; BMI 19.1
--- NOTE | 2022-11-06 09:28 | ED.GENADULT ---
HPI - General Adult General Chief complaint: General Medical Stated complaint: From [facility] per EMS History of Present Illness HPI narrative: Patient is a 82-year-old male with a history of lung cancer history of hypertension hyperlipidemia just received chemotherapy on October 30. Patient experience nausea vomiting diarrhea went to [facility], transferred to [facility] for further evaluation of pancytopenia. Patient was found to be very weak very tired having nausea vomiting and having black stool. Noted to have a hemoglobin of 5.9. Patient also noted to have an elevated BUN creatinine of 31 and 0.84. Was transfused x1 unit of blood at [facility]. Sent to the ED for further evaluation. An exam done over there show black stool. However patient is on iron supplements. No gross melena was noted. Patient feels very weak tired. Related Data Home Medications Medication Instructions Recorded Confirmed ascorbic acid (vitamin C) 1,000 mg 1 g PO DAILY 07/30/21 11/06/22 tablet (Vitamin C) aspirin 325 mg capsule 325 mg PO DAILY 07/30/21 11/06/22 cholecalciferol (vitamin D3) 50 50 mcg PO DAILY 07/30/21 11/06/22 mcg (2,000 unit) capsule (Vitamin D3) cyanocobalamin (vitamin B-12) 1,000 mcg PO DAILY 07/30/21 11/06/22 1,000 mcg capsule ferrous sulfate 325 mg (65 mg 32 mg PO Q OTHER DAY 07/30/21 11/06/22 iron) tablet multivitamin 1 tab PO DAILY 07/30/21 11/06/22 acetaminophen 500 mg tablet 500 mg PO Q6H PRN Pain 10/20/22 11/06/22 atorvastatin 40 mg tablet 40 mg PO BEDTIME 11/06/22 11/06/22 ondansetron 8 mg disintegrating 8 mg PO Q8H PRN Nausea 11/06/22 11/06/22 tablet Previous Rx's Medication Instructions Recorded levothyroxine 88 mcg tablet 88 mcg PO QAM #90 tabs 09/07/22 dexamethasone 4 mg tablet 4 mg PO BID #60 tabs 10/20/22 folic acid 1 mg tablet 1 mg PO DAILY #90 tabs 10/20/22 oxycodone 5 mg tablet 5 mg PO Q6H PRN Breakthrough Pain, 10/20/22 Moderate #50 tabs oxycodone 5 mg tablet 5 mg PO Q6H PRN Breakthrough Pain, 10/20/22 Moderate #50 tabs Allergies Allergy/AdvReac Type Severity Reaction Status Date / Time No Known Allergies Allergy Verified 10/29/22 07:14 [No Known Allergies*] Review of Systems Review of Systems: Positive generalized malaise. Positive nausea vomiting earlier Yes all other systems are reviewed and are negative PMFSH Past Medical History Attestation statement: The following information was validated with the patient. Medical History BPH (benign prostatic hyperplasia) COVID-19 vaccine series completed Elevated cholesterol H/O prostate cancer HTN (hypertension) Hypothyroid Non-small cell lung cancer (NSCLC) Port-A-Cath in place PVD (peripheral vascular disease) Surgical History H/O colonoscopy History of bone marrow biopsy History of carotid endarterectomy History of thoracentesis Hx of cataract extraction Hx of prostatectomy Hx of umbilical hernia repair Social History Social History Household Members: Spouse Housing: House Are you a primary customer care voice consultant to a significant other at home: No Do you presently have visiting nurse or other home services: No Alcohol intake: former Patient Tobacco Use Status: Never used Tobacco Smoked in Last 30 Days: No Use of substances other than those prescribed or required for medical reasons: No Advance Directives: Yes Advance Directives Information Provided: Yes Advance Directives on File: No Advance Directives Date on File: 09/18/21 service: No Current occupational status: retired Physical Exam ED Vital Signs: Vital Signs - 24 hr 11/06/22 08:52 11/06/22 09:11 Temperature 98.0 F Pulse Rate 85 Respiratory Rate 20 Blood Pressure 119/65 Pulse Oximetry 93 96 Oxygen Delivery Method Room Air Nasal Cannula Oxygen Flow Rate 2 BMI result Body Mass Index 20.7 Appearance: Alert. Oriented X3. No acute distress. Eyes: Pupils equal, round and reactive to light. ENT: Pharynx normal. Neck: Normal inspection. Neck supple. No lymph nodes noted. No crepitus CVS: Normal heart rate and rhythm. Pulses normal. Normal S1 and S2 Respiratory: No respiratory distress. Breath sounds normal. No Wheezing. No rales Abdomen: Soft and nontender. No rigidity. No distention. good BS x4 Skin: Skin warm and dry. Normal skin color. Normal skin turgor. Extremities: No lower extremity edema. Neurovascular intact to all extremities. No Lacerations. No Rash Neuro: Oriented X 3. No motor deficit. No sensory deficit. Moving all extermities. No slurred speech Medical Decision Making Medical Decision Making MDM Narrative: Patient has same pancytopenia likely related to chemotherapy. Had HD unit of transfusion done at [facility]. Patient's hemoglobin at [place] is 6.4. Will transfuse the 2nd unit. Risk and benefit discussed with patient. Case discussed with hospitalist team. Patient is not neutropenic at this time. BUN and creatinine has corrected. Case discussed with the hospitalist team for admission. Differential Diagnosis Anemia, pancytopenia Consult Healthcare Provider Management of the patient was discussed with: Hospitalist Lab Data MDM Lab Attestation statement: I reviewed the patient's lab results. 11/06/22 09:37 11/06/22 09:37 Labs: Lab Results 11/06/22 11/06/22 11/06/22 Range/Units 09:37 09:37 09:37 WBC 8.9 (4.8-10.8) X10*3/uL RBC 2.26 L D (4.60-5.80) X10*6/uL Hgb 6.4 L* D (14.0-18.0) g/dl Hct 20.4 L* D (42.0-52.0) % MCV 90.3 (80.0-98.0) fL MCH 28.3 (27.0-33.0) pg MCHC 31.4 (31.0-36.0) g/dl RDW 20.9 H (11.0-16.0) % Plt Count 10 L* D (160-400) X10*3/uL MPV Not Reportable Immature Gran % (Auto) 1.9 H (0.0-0.4) % Neut % (Auto) 87.7 H (45-73) % Lymph % (Auto) 3.5 L (20-40) % [place] % (Auto) 6.7 (2-11) % Eos % (Auto) 0.0 (0-4) % Baso % (Auto) 0.2 (0-2) % Lymph # (Auto) 0.3 L (1.2-4.9) X10*3/uL [place] # (Auto) 0.6 (0.1-1.2) X10*3/uL Eos # (Auto) 0.0 (0.0-0.4) X10*3/uL Baso # (Auto) 0.0 (0.0-0.2) X10*3/uL Abs Immat Gran (auto) 0.17 H (0.00-0.03) X10*3/uL Absolute Neuts (auto) 7.8 (2.0-8.3) x10*3/uL Absolute Nucleated RBC 0.030 H (0.0-0.012) X10*3/uL Nucleated RBC % (auto) 0.3 H (0.0-0.2) /100WBC Sodium 139 (135-145) mmol/L Potassium 3.7 (3.3-5.1) mmol/L Chloride 108 (96-108) mmol/L Carbon Dioxide 21 L (22-29) mmol/L Anion Gap 14 (12-20) BUN 23 H (9-16) mg/dL Creatinine 0.79 (0.5-1.4) mg/dL Estim Creat Clear Calc 67.0 Estimated GFR > 60 Random Glucose 113 (60-115) mg/dL Calcium 7.5 L D (8.4-10.2) mg/dL COVID-19 (EDDIE) Negative (Negative) COVID-19 Clin Com See Note External Record Review External record reviewed: Outside ED record Chronic Conditions Lung cancer Discharge Plan Discharge Clinical Impression: Lung cancer, Pancytopenia Patient Disposition: Admitted As Inpatient Prescriptions: No Action levothyroxine 88 mcg tablet 88 mcg PO QAM Qty: 90 1RF multivitamin Tablet 1 tab PO DAILY ascorbic acid (vitamin C) [Vitamin C] 1,000 mg Tablet 1 g PO DAILY ferrous sulfate 325 mg (65 mg iron) Tablet 32 mg PO Q OTHER DAY Rx Instructions: 1/2 tablet every other day cholecalciferol (vitamin D3) [Vitamin D3] 50 mcg (2,000 unit) Capsule 50 mcg PO DAILY cyanocobalamin (vitamin B-12) 1,000 mcg Capsule 1,000 mcg PO DAILY aspirin 325 mg Capsule 325 mg PO DAILY oxycodone 5 mg Tablet 5 mg PO Q6H PRN (Reason: Breakthrough Pain, Moderate) Qty: 50 0RF Rx Instructions: Partial Fill upon patient request. oxycodone 5 mg Tablet 5 mg PO Q6H PRN (Reason: Breakthrough Pain, Moderate) Qty: 50 0RF Rx Instructions: Partial Fill upon patient request. acetaminophen [Tylenol Ex Str Rapid Release] 500 mg Tablet 500 mg PO Q6H PRN (Reason: Pain) folic acid 1 mg Tablet 1 mg PO DAILY Qty: 90 3RF dexamethasone 4 mg Tablet 4 mg PO BID Qty: 60 3RF Rx Instructions: Take 4 mg b.i.d. day before and day after [place]. Every 3 weeks. atorvastatin 40 mg tablet 40 mg PO BEDTIME ondansetron 8 mg tablet,disintegrating 8 mg PO Q8H PRN (Reason: Nausea)
[2022-11-06 09:41] LABS: MANUAL DIFF FLAG NO
[2022-11-06 09:46] LABS: Basophils Percent Auto 0.2 % (0-2); Imm Gran Abs Auto 0.17 X10*3/uL (0.00-0.03); Imm Gran Pct Auto 1.9 % (0.0-0.4); Lymphocytes Absolute Auto 0.3 X10*3/uL (1.2-4.9); Lymphocytes Percent Auto 3.5 % (20-40); Mean Corpuscular HGB Conc 31.4 g/dl (31.0-36.0); Mean Corpuscular Hemoglobin 28.3 pg (27.0-33.0); Mean Corpuscular Volume 90.3 fL (80.0-98.0); Monocytes Absolute Auto 0.6 X10*3/uL (0.1-1.2); Monocytes Percent Auto 6.7 % (2-11); NRBC Pct Auto 0.3 /100WBC (0.0-0.2); Neutrophils Absolute Auto 7.8 x10*3/uL (2.0-8.3); Neutrophils Percent Auto 87.7 % (45-73); Red Blood Count 2.26 X10*6/uL (4.60-5.80); Red Cell Distribution Width 20.9 % (11.0-16.0); White Blood Count 8.9 X10*3/uL (4.8-10.8)
[2022-11-06 09:55] LABS: COVID-19 Test Negative (Negative); IDNOW Serial# 08D9AD1C
--- NOTE | 2022-11-06 09:55 | PHA.MEDREC ---
Pharmacy Consult ? Medication Reconciliation Pharmacy has completed the medication reconciliation.
[2022-11-06 10:03] LABS: Anion Gap 14 (12-20); Blood Urea Nitrogen 23 mg/dL (9-16); Calcium 7.5 mg/dL (8.4-10.2); Carbon Dioxide 21 mmol/L (22-29); Chloride 108 mmol/L (96-108); Estimated Glomerular Filt Rate > 60; Glucose Random 113 mg/dL (60-115); Potassium 3.7 mmol/L (3.3-5.1); Sodium 139 mmol/L (135-145)
[2022-11-06 10:05] LABS: Hemoglobin 6.4 g/dl (14.0-18.0)
[2022-11-06 10:06] LABS: Platelet Count 10 X10*3/uL (160-400)
[2022-11-06 10:07] LABS: Hematocrit 20.4 % (42.0-52.0)
--- NOTE | 2022-11-06 11:15 | PM.IMHP ---
History of Present Illness Date of Service: 11/06/22 Attending physician on admission: [facility] Chief Complaint: Weakness Pt is a 82-year-old male with a PMH significant for?non-small cell lung cancer followed by Dr. Marks and recently started chemotherapy last week, HTN, pancytopenia, PVD, BPH, hypothyroidism, who presents to the ED with?nausea, vomiting, diarrhea, and generalized weakness. Patient originally presented to [facility] ED where his hemoglobin was noted to be 5.9 and he received 1 unit of blood, then transferred here to [facility] for further evaluation of anemia and thrombocytopenia. Hemoglobin at time of presentation at [place] was 6.4, patient is set to receive another unit of blood. Patient states that last night he was lightheaded and dizzy with standing and unable to to the bathroom. He also experienced nausea and vomiting especially standing. Patient reports dark-colored diarrhea, on lactulose and iron supplementation. Patient also experienced generalized pain and discomfort last night, improved after receiving 1 unit of PRBC. Patient now states that he is resting comfortably and feeling relaxed. Patient currently denies nausea, vomiting, generalized pain. Patient also denies spontaneous bleeding, no epistaxis, no gingival bleeding. Denies fever, chills no abdominal pain. In the ED patient was afebrile but slightly hypotensive at 112/50, satting at 93 on RA. Placed on nasal cannula which improved O2 sat 98%. Labs were significant for H&H of 6.4 over 20.4, platelets of 10 (down from 85 on 10/26/2022), BUN slightly elevated 23, creatinine 0.79. Pt will be admitted to the hospital for treatment of anemia and thrombocytopenia likely secondary to chemotherapy. Review of Systems Review of Systems: Generalized weakness, fatigue Lightheadedness, dizziness Nausea, vomiting Dark-colored loose stool Denies epistaxis, gingival bleeding, any spontaneous bleeding No fever, chills Yes all other systems are reviewed and are negative [facility] Medical History BPH (benign prostatic hyperplasia) COVID-19 vaccine series completed Elevated cholesterol H/O prostate cancer HTN (hypertension) Hypothyroid Non-small cell lung cancer (NSCLC) Port-A-Cath in place PVD (peripheral vascular disease) Surgical History H/O colonoscopy History of bone marrow biopsy History of carotid endarterectomy History of thoracentesis Hx of cataract extraction Hx of prostatectomy Hx of umbilical hernia repair Social History Household Members: Spouse Housing: House Are you a primary ostomy care nurse to a significant other at home: No Do you presently have visiting nurse or other home services: No Alcohol intake: former Patient Tobacco Use Status: Never used Tobacco Smoked in Last 30 Days: No Use of substances other than those prescribed or required for medical reasons: No Advance Directives: Yes Advance Directives Information Provided: Yes Advance Directives on File: No Advance Directives Date on File: 09/18/21 service: No Current occupational status: retired [employer] Allergies Allergy/AdvReac Type Severity Reaction Status Date / Time No Known Allergies Allergy Verified 10/29/22 07:14 [No Known Allergies*] Active Medications: Current Medications Acetaminophen (Acetaminophen Supp 650 Mg Supp.Rect) 650 mg [place] Q6H PRN PRN Reason: Pain, Mild (Pain Scale 1-3) Ascorbic Acid (Ascorbic Acid 500 Mg Tablet) 1,000 mg PO DAILY CAROL Atorvastatin Calcium (Atorvastatin Calcium 40 Mg Tablet) 40 mg PO BEDTIME CAROL Cyanocobalamin (Cyanocobalamin (Vitamin B-12) 1,000 Mcg Tablet) 1,000 mcg PO DAILY CAROL Folic Acid (Folic Acid 1 Mg Tablet) 1 mg PO DAILY CAROL Levothyroxine Sodium (Levothyroxine Sodium 88 Mcg Tablet) 88 mcg PO QAM CAROL Melatonin (Melatonin 3 Mg Tablet) 6 mg PO BEDTIME PRN PRN Reason: Insomnia Multivitamins/Vitamin C (Multivitamin Tablet) 1 tab PO DAILY CAROL Non-Formulary Medication (Acetaminophen) 500 mg PO Q6H PRN PRN Reason: Pain Non-Formulary Medication (Ferrous Sulfate) 32 mg PO Q OTHER DAY CAROL Ondansetron HCl (Ondansetron Odt 8 Mg Tab.Rapdis) 8 mg TRANSLINGU Q8H PRN PRN Reason: Nausea Oxycodone HCl (Oxycodone Hcl Immed Release 5 Mg Tablet) 5 mg PO Q6H PRN PRN Reason: Breakthrough Pain, Moderate Oxycodone HCl (Oxycodone Hcl Immed Release 5 Mg Tablet) 5 mg PO Q6H PRN PRN Reason: Breakthrough Pain, Moderate Pharmacy Consult (Consult Rx Perform Med Rec) 1 each MISCELLANE ONCE PRN PRN Reason: Consult order Sodium Chloride (0.9 % Sodium Chloride Flush 3 Ml Syringe) 3 ml IVFLUSH QSHIFT [facility] Vitamin D (Cholecalciferol (Vitamin D3) 25 Mcg Tablet) 50 mcg PO DAILY [facility] Home Medications Medication Instructions Recorded Confirmed Last Taken Type ascorbic acid (vitamin C) 1,000 mg 1 g PO DAILY 07/30/21 11/06/22 Unknown History tablet (Vitamin C) aspirin 325 mg capsule 325 mg PO DAILY 07/30/21 11/06/22 09/15/21 History cholecalciferol (vitamin D3) 50 50 mcg PO DAILY 07/30/21 11/06/22 Unknown History mcg (2,000 unit) capsule (Vitamin D3) cyanocobalamin (vitamin B-12) 1,000 mcg PO DAILY 07/30/21 11/06/22 Unknown History 1,000 mcg capsule ferrous sulfate 325 mg (65 mg 32 mg PO Q OTHER DAY 07/30/21 11/06/22 Unknown History iron) tablet multivitamin 1 tab PO DAILY 07/30/21 11/06/22 Unknown History acetaminophen 500 mg tablet 500 mg PO Q6H PRN Pain 10/20/22 11/06/22 Unknown History atorvastatin 40 mg tablet 40 mg PO BEDTIME 11/06/22 11/06/22 11/05/22 History ondansetron 8 mg disintegrating 8 mg PO Q8H PRN Nausea 11/06/22 11/06/22 Unknown History tablet Physical Exam Vital Signs and Narrative: Vital Signs: Last Vital Signs Temp 98.0 F 11/06/22 08:52 Pulse 90 11/06/22 10:33 Resp 18 11/06/22 10:33 BP 112/50 L 11/06/22 10:33 Pulse Ox 98 11/06/22 10:33 O2 Del Method Nasal Cannula 11/06/22 10:33 O2 Flow Rate 2 11/06/22 10:33 BMI result Body Mass Index 20.7 Constitutional: Alert, in no acute distress. Mental Status: Oriented to person, place and time. Eyes: Pupils are equal, round, and reactive to light. Ear, Nose, and Throat: Oropharynx clear, mucous membranes dry. Ears and nose without deformities. Trachea midline. Respiratory: Clear to auscultation bilaterally. No wheezing, rales, or rhonchi. Cardiovascular: S1, S2 regular. No murmurs, rubs, or gallops. Gastrointestinal: Abdomen soft, non-tender, non-distended. Normal bowel sounds. Neurologic: Cranial nerves II-XII are grossly intact bilaterally. No focal neurological deficits. Moves all extremities spontaneously. Skin: Bruising on forearms bilaterally, small subcutaneous hematoma noted on upper right chest at site of closed port. Extremities: No edema. Psychiatric: Normal mood and affect. Results Labs 11/06/22 09:37 11/06/22 09:37 Labs: Laboratory Results - last 24 hr 11/06/22 11/06/22 11/06/22 09:37 09:37 09:37 MCV 90.3 MCH 28.3 MCHC 31.4 RDW 20.9 H Plt Count 10 L* D MPV Not Reportable Immature Gran % (Auto) 1.9 H Neut % (Auto) 87.7 H Lymph % (Auto) 3.[address] [place] % (Auto) 6.7 Eos % (Auto) 0.0 Baso % (Auto) 0.2 Lymph # (Auto) 0.[address] [place] # (Auto) 0.6 Eos # (Auto) 0.0 Baso # (Auto) 0.0 Abs Immat Gran (auto) 0.17 H Absolute Neuts (auto) 7.8 Absolute Nucleated RBC 0.030 H Nucleated RBC % (auto) 0.3 H Anion Gap 14 Estim Creat Clear Calc 67.0 Estimated GFR > 60 Random Glucose 113 Calcium 7.5 L D COVID-19 (EDDIE) Negative COVID-19 Clin Com See Note Blood Type Antibody Screen Crossmatch 11/06/22 10:20 MCV MCH MCHC RDW Plt Count MPV Immature Gran % (Auto) Neut % (Auto) Lymph % (Auto) [place] % (Auto) Eos % (Auto) Baso % (Auto) Lymph # (Auto) [place] # (Auto) Eos # (Auto) Baso # (Auto) Abs Immat Gran (auto) Absolute Neuts (auto) Absolute Nucleated RBC Nucleated RBC % (auto) Anion Gap Estim Creat Clear Calc Estimated GFR Random Glucose Calcium COVID-19 (EDDIE) COVID-19 Clin Com Blood Type A Negative Antibody Screen NEGATIVE Crossmatch See Detail Assessment and Plan (1) Anemia: Status: Acute (2) Thrombocytopenia: Status: Acute Plan Pt is a 82-year-old male with a PMH significant for?non-small cell lung cancer followed by Dr. Marks and recently started chemotherapy last week, HTN, pancytopenia, PVD, BPH, hypothyroidism, who presents to the ED with?nausea, vomiting, diarrhea, and generalized weakness. Pt will be admitted to the hospital for treatment of anemia and thrombocytopenia likely secondary to chemotherapy. Anemia Patient's hemoglobin 5.9 at [facility], H&H now 6.4/20.4 after 1 unit PRBC Likely secondary to chemotherapy Patient received 1 unit of PRBC at [facility], will receive another unit here Hold home aspirin Oncology consult Continue home analgesics for pain management Follow CBC Thrombocytopenia Platelets 10 at time of presentation, down from 85 on 10/08/2022 Likely secondary to chemotherapy Patient will receive 2 units of platelets, per oncology Follow CBC Generalized weakness Likely secondary to anemia Patient states he is feeling better after receiving 1 unit of PRBC Treat as above Dark-colored stools Patient states that his stools have been dark colored Will check stool for occult blood Hypothyroidism Continue levothyroxine HLD Continue statin HTN Hold antihypertensives due to hypotension Full Code Attending:?Dr. Cotton DVT Prophylaxis: Pneumatic boots Pt will require a hospitalization of at least two nights for treatment of? anemia thrombocytopenia likely secondary to chemotherapy. Time Spent With Patient Time: Total time managing care of this patient today ____ minutes. Quality Stroke Does the patient have a stroke diagnosis?: No VTE Prior VTE?: No VTE Risk Level:: Medical - moderate - high VTE Device Contraindication: N/A - Device Ordered VTE Drug Contraindication: Treatment Not Tolerated
--- NOTE | 2022-11-06 12:22 | PM.HEMONCCN ---
Subjective - Subjective Chief complaint: Consult for: Non Small Cell Lung Cancer. 2. RAEB. Patient: known to practice within the last 3 years Consult date: 11/06/22 Requesting Physician: Corey. Primary Care Provider: Douglas Schultz PA-C Medical Summary: DIAGNOSIS: 1. ANEMIA. 2. THROMBOCYTOPENIA. 3. STATUS POST CHEMOTHERAPY. 4. NON-SMALL CELL LUNG CARCINOMA. 5. RAEB. HPI - Consult Narrative Reason for consult: Consult for: 1. Non-small cell lung carcinoma. 2. RAEB. Narrative: Celestino Gage is a 82 year old gentleman, transferred from [facility], on account of significant anemia and thrombocytopenia. He received his 1st cycle of chemotherapy, with dose reduced carbo, Alimta and pembrolizumab 1 week ago. Last night, he was seen in the ED there, he was noted to have significant anemia with hemoglobin of 5 and thrombocytopenia with platelets of 16. He received a couple units of blood there. CBC from this morning: WBC: 8.9, HGB: 6.4, HCT 20.4, PLT: 10. He tells me 1st 2 days after chemo he felt well. Subsequently he noted easy fatigability. Last night he went to the bathroom, however was not able to get up from the toilet. He just did not have the strength. His came in. She called the ambulance. Denies fever nor chills. No headache but had dizziness. He gets short winded on exertion but he is still trying to walk around the house and climb stairs. No abdominal pain nausea vomiting heartburn indigestion. Bowels are working. He denies diarrhea. No gross blood in the stools. Bowels are dark from the iron. His apetite went down. No dysuria or hematuria. He has had sciatica and right hip pain, for years. No focal weakness. He denies depression. No skin rashes nor pruritus. Interim history: He saw the dentist a couple of weeks ago. He took 4 teeth out. Two of the teeth were infected into the gums were infected. He completed the course of Augmentin. Subsequently he noticed that the aches and pains in his face and chest resolved. His energy level was not too low. He had ongoing pain in the mid left chest wall. He felt a tender spot there. It got relieved when he breathed in and leaned forward. He graded the pain level as 5 on 1-10 scale. Tylenol slowed it down however he had to take 1 g every 5 hours, to keep it at bay. Previous history: He had a bone marrow exam done, on 09/18. The results: Pathology: Hypercellular, erythroid predominant marrow with diserythropoiesis. No increase in blasts or infiltrative process. Reduced storage iron. Flow cytometry is negative for a lymphoproliferative disorder or increased blasts. Cytogenetics and MDS fish panel are negative. PAST MEDICAL HISTORY: He mentioned that his hemoglobin has been trickling down over the years. Review of his labs in the computer revealed: 06/16, CBC: WBC 10.4, HGB 11, HCT 34.2, MCV 103.6, PLT 135. Ferritin: 184. B12 1130. Folate >20. Previous blood count: 04/23/2021 hemoglobin 10.9. 10/15/2020: Hemoglobin 11.9. 01/12/19: Hemoglobin 13. He has been taking half a iron tablet, every other day for the past couple of months. His blood pressure has been well controlled. He is off the lisinopril now. His blood pressure is normal now. Review of Systems - Constitutional Reports system reviewed and no additional complaints, except as documented, Reports fatigue, Reports lack of energy, Reports weakness, Reports weight loss, Denies fever(s) - Eyes Reports system reviewed and no additional complaints, except as documented - ENT Reports system reviewed and no additional complaints, except as documented - Cardiovascular Reports system reviewed and no additional complaints, except as documented - Respiratory Reports no additional respiratory complaints - Gastrointestinal Reports system reviewed and no additional complaints, except as documented - Genitourinary Genitourinary: Reports no additional male genitourinary complaints - Musculoskeletal Reports system reviewed and no additional complaints, except as documented - Integumentary/Breasts Skin/Breast: Reports no additional skin complaints - Neurologic Reports system reviewed and no additional complaints, except as documented - Psychiatric Reports system reviewed and no additional complaints, except as documented - Endocrine Reports no additional endocrine complaints - Hematologic/Lymphatic Reports system reviewed and no additional complaints, except as documented - Allergic/Immunologic Reports system reviewed and no additional complaints, except as documented Oncology Screenings - ECOG Performance Status ECOG Performance Status: 2 PMFSH Medical History: Medical History (Last Reviewed 11/09/22 @ 13:40 by Rocio Cabrera PT) BPH (benign prostatic hyperplasia) COVID-19 vaccine series completed Elevated cholesterol H/O prostate cancer HTN (hypertension) Hypothyroid Non-small cell lung cancer (NSCLC) Port-A-Cath in place PVD (peripheral vascular disease) Functional capacity: wheelchair bound Patient : No Surgical History: Surgical History (Last Reviewed 11/09/22 @ 13:40 by Rocio Cabrera PT) H/O colonoscopy History of bone marrow biopsy History of carotid endarterectomy History of thoracentesis Hx of cataract extraction Hx of prostatectomy Hx of umbilical hernia repair Social History: Social History (Last Reviewed 10/20/22 @ 11:16 by Tawanna Daley RN) Living Situation History: Household Members: Spouse Housing: House Are you a primary infant childcare provider to a significant other at home: No Do you presently have visiting nurse or other home services: No Tobacco History: Patient Tobacco Use Status: Never used Tobacco Advance Directives: Advance Directives Date on File: 09/18/21 Occupation Assessmet: service: No Current occupational status: retired Home Medications and Allergies Current Medications: Current Medications Acetaminophen (Acetaminophen Supp 650 Mg Supp.Rect) [address] Q6H PRN PRN Reason: Pain, Mild (Pain Scale 1-3) Ascorbic Acid (Ascorbic Acid 500 Mg Tablet) 1,000 mg PO DAILY [facility] Atorvastatin Calcium (Atorvastatin Calcium 40 Mg Tablet) 40 mg PO BEDTIME [facility] Cyanocobalamin (Cyanocobalamin (Vitamin B-12) 1,000 Mcg Tablet) 1,000 mcg PO DAILY [facility] Ferrous Sulfate (Ferrous Sulfate 300 Mg/5 Ml Liquid) 150 mg PO Q2D [facility] Folic Acid (Folic Acid 1 Mg Tablet) 1 mg PO DAILY [facility] Levothyroxine Sodium (Levothyroxine Sodium 88 Mcg Tablet) 88 mcg PO DAILY@0600 [facility] Melatonin (Melatonin 3 Mg Tablet) 6 mg PO BEDTIME PRN PRN Reason: Insomnia Multivitamins/Vitamin C (Multivitamin Tablet) 1 tab PO DAILY [facility] Ondansetron HCl (Ondansetron Odt 8 Mg Tab.Rapdis) 8 mg TRANSLINGU Q8H PRN PRN Reason: Nausea Oxycodone HCl (Oxycodone Hcl Immed Release 5 Mg Tablet) 5 mg PO Q6H PRN PRN Reason: Breakthrough Pain, Moderate Pharmacy Consult (Consult Rx Perform Med Rec) 1 each MISCELLANE ONCE PRN PRN Reason: Consult order Sodium Chloride (0.9 % Sodium Chloride Flush 3 Ml Syringe) 3 ml IVFLUSH QSHIFT [facility] Vitamin D (Cholecalciferol (Vitamin D3) 25 Mcg Tablet) 50 mcg PO DAILY [facility] Home Medications Medication Instructions Recorded Confirmed Type ascorbic acid (vitamin C) 1,000 mg 1 g PO DAILY 07/30/21 11/06/22 History tablet (Vitamin C) aspirin 325 mg capsule 325 mg PO DAILY 07/30/21 11/06/22 History cholecalciferol (vitamin D3) 50 50 mcg PO DAILY 07/30/21 11/06/22 History mcg (2,000 unit) capsule (Vitamin D3) cyanocobalamin (vitamin B-12) 1,000 mcg PO DAILY 07/30/21 11/06/22 History 1,000 mcg capsule ferrous sulfate 325 mg (65 mg 32 mg PO Q OTHER DAY 07/30/21 11/06/22 History iron) tablet multivitamin 1 tab PO DAILY 07/30/21 11/06/22 History acetaminophen 500 mg tablet 500 mg PO Q6H PRN Pain 10/20/22 11/06/22 History atorvastatin 40 mg tablet 40 mg PO BEDTIME 11/06/22 11/06/22 History ondansetron 8 mg disintegrating 8 mg PO Q8H PRN Nausea 11/06/22 11/06/22 History tablet Allergies Allergy/AdvReac Type Severity Reaction Status Date / Time No Known Allergies Allergy Verified 10/29/22 07:14 [No Known Allergies*] Physical Exam Vital signs: Vital Signs Temp 98.0 F 11/06/22 08:52 Pulse 90 11/06/22 10:33 Resp 18 11/06/22 10:33 BP 112/50 L 11/06/22 10:33 Pulse Ox 98 11/06/22 10:33 O2 Del Method Nasal Cannula 11/06/22 10:33 O2 Flow Rate 2 11/06/22 10:33 Intake & Output 11/05/22 11/06/22 11/06/22 18:59 06:59 18:59 Other: Weight 63.6 kg Weight 63.6 kg - Constitutional Present: mild distress - Routine HEENT Exam Head: Present: normocephalic Eye: Present: normal appearance ENT: Present: mucous membranes moist - Routine Neck Exam Present: supple - Routine Respiratory Exam Present: decreased breath sounds - Routine Cardiovascular Exam Cardiovascular: Present: RRR, S1, S2 - Routine Abdominal Exam Present: normal bowel sounds, nontender - Routine Extremities Exam Present: nontender - Routine Skin Exam Present: intact - Routine Neurological Exam Present: alert, oriented X3 - Detailed Neurological Exam: Coma Scale Eye Opening: Spontaneous (4) Verbal Response: Oriented (5) Motor Response: Obeys commands (6) [place] Coma Scale Total: 15 - Routine Psychiatric Exam Present: normal affect Hem/Onc Consult Result - Labs CBC & Chem 7: 11/10/22 07:52 11/06/22 09:37 Labs: Short CBC 11/06/22 Range/Units 09:37 WBC 8.9 (4.8-10.8) X10*3/uL Hgb 6.4 L* D (14.0-18.0) g/dl Hct 20.4 L* D (42.0-52.0) % Plt Count 10 L* D (160-400) X10*3/uL BMP 11/06/22 09:37 Sodium 139 Potassium 3.7 Chloride 108 Carbon Dioxide 21 L BUN 23 H Creatinine 0.79 Calcium 7.5 L D Assessment and Plan Patient Active problem list reviewed?: Yes (1) Adenocarcinoma of left lung Status: Acute Assessment and plan: 82 year old gentleman who complained of left-sided chest pain. He had diminished breath sounds on the left base. Chest x-ray revealed: Small to moderate left pleural effusion with associated airspace opacity which could represent atelectasis or pneumonia. There may be mild pleural thickening at the periphery of the left upper hemithorax. I proceeded with a CT scan of the chest. This was done on 09/23 and revealed: 3.6 x 2.6 cm left upper lobe mass invading the chest wall pleura and mediastinal pleura suspicious for pulmonary malignancy. Additional areas of abnormal parietal pleural thickening in the left hemithorax suspicious for pleural metastatic disease. Recommend correlation with fluid cytology. Biopsy may be necessary for diagnosis. This was called to Dr. Marks at 8:30 AM on 09/29/2022. 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 Moderate nonsimple left pleural effusion suspicious for malignant effusion. Mild emphysema. Mild pulmonary fibrosis. 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 Consider referral to a vascular specialist. l then proceeded with diagnostic and therapeutic thoracentesis on the left side. Cytology revealed: Positive for malignant cells, consistent with adenocarcinoma of lung origin. Lung panel has been sent. PET scan from 10/13: 1. Extensive nodular masslike multifocal FDG avid pleural thickenings are present throughout the entire left hemithorax with most pronounced changes seen at anterior, medial aspect of the mid part of the left hemithorax with the dominant solid-appearing soft tissue mass measuring approximately 4.4 cm at its maximum transverse dimension with SUV max of 9.4, inseparable from the adjacent mediastinal pleura. Additional solid masslike FDG avid pleural thickenings are also present especially involving anterior inferior costophrenic sulcus, measures approximately 2.6 x 1.3 cm with SUV max of 7.3. In addition, multiloculated FDG avid pleural effusion is also present with most pronounced changes seen within the base of the pleural space. The findings are most consistent with either primary or metastatic pleural malignancy. 2. Partial collapse consolidation involving both left lower greater than upper lobes. 3. No FDG avid mediastinal and/or hilar or axillary or internal mammary lymphadenopathy or FDG avid disease within the contralateral right lung or pleural space. 4. Subcentimeter non-FDG avid nodular opacity within the superior segment of right lower lobe of the lung with underlying subpleural cystic changes. 5. Indeterminate moderately intense FDG avidity involving likely proximal ascending colon at right iliac fossa with SUV max of 6.5, for which direct visualization/colonoscopy is recommended for further clarification, if not recently performed. 6. Moderately intense diffuse increased FDG avidity throughout the entire axial skeleton as well as both proximal femur, may represent bone marrow infiltrative/replacement process versus physiologic hyperplastic changes. 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 Then diagnostic and therapeutic thoracentesis on the left side: Positive for malignant cells consistent with adenocarcinoma of lung origin Bone marrow biopsy was done on , and revealed: RAEB. Patient was started on dose reduced palliative chemotherapy with carboplatin, Alimta and pembrolizumab, on 10/30. He now presents with significant anemia and thrombocytopenia. He received 2 units of blood, earlier this morning at [facility]. PLAN: Will transfuse 1 more unit of blood. He will receive 2 units of platelets. Will continue supportive care. He may benefit from physical therapy, to get his strength up. Will see if he requires her short-term stay at rehab. Thank you for the consult, I will follow along with you, Cc: Dr. Cotton. Thank you, - Time Spent With Patient Time Spent with Patient (in minutes): 30
--- NOTE | 2022-11-06 14:51 | MHC.CLN ---
NUTRITION CONSULT FOR WEIGHT LOSS. PATIENT RECEIVING CHEMO. SIGNIFICANT WEIGHT LOSS X APPROX ONE MONTH=-7.7%. REPORTS WEIGHT LOSS SINCE STARTING CHEMO. DIET=REGULAR. ADDING ENSURE TID PER DISCUSSION WITH PATIENT AND . SUPPLEMENT PROVIDES ADDITIONAL 1050 KCALS, 60 G PROTEIN. FOLLOW FOR INTAKE OF MEALS AND SUPPLEMENT.
[2022-11-06] MEDS: Atorvastatin Calcium 40 MG TABLET PO (20:33)
[2022-11-06] MEDS: 0.9 % Sodium Chloride Flush 3 ML SYRINGE IVFLUSH (20:36)
[2022-11-07] VITALS (7 sets, daily range): BP systolic 95–128; BP diastolic 50–60; PULSE 75–85; RESP 16–18; TEMP 36.5–37.3; O2SAT 92–93
[2022-11-07] MEDS: Levothyroxine Sodium 88 MCG TABLET PO (05:17)
[2022-11-07 05:50] LABS: Imm Gran Abs Auto 0.03 X10*3/uL (0.00-0.03); Imm Gran Pct Auto 0.9 % (0.0-0.4); MANUAL DIFF FLAG SCAN; NRBC Pct Auto 0.6 /100WBC (0.0-0.2); PLT CLUMP 1; SCAN SMEAR FLAG 1
[2022-11-07 05:52] LABS: Eosinophils Absolute Auto 0.1 X10*3/uL (0.0-0.4); Lymphocytes Absolute Auto 0.7 X10*3/uL (1.2-4.9); Lymphocytes Percent Auto 21.3 % (20-40); Mean Corpuscular HGB Conc 31.9 g/dl (31.0-36.0); Mean Corpuscular Volume 91.1 fL (80.0-98.0); Monocytes Absolute Auto 0.4 X10*3/uL (0.1-1.2); Monocytes Percent Auto 11.5 % (2-11); Neutrophils Absolute Auto 2.2 x10*3/uL (2.0-8.3); Neutrophils Percent Auto 64.3 % (45-73); Red Blood Count 2.24 X10*6/uL (4.60-5.80)
[2022-11-07 05:54] LABS: Platelet Count 33 X10*3/uL (160-400); White Blood Count 3.5 X10*3/uL (4.8-10.8)
[2022-11-07 06:16] LABS: Hematocrit 20.4 % (42.0-52.0); Hemoglobin 6.5 g/dl (14.0-18.0)
[2022-11-07 06:17] LABS: SLIDE REVIEW VERIFIED
--- NOTE | 2022-11-07 07:43 | P.PNIM_ITS ---
Subjective Subjective Date of Service: 11/07/22 Interval History: f/u on weakness, pancytopenia s/p rbc and platlets tranfusion feels better, no shift in H/H hct still 20 Physical Exam Vital Signs: Vital Signs: Last Vital Signs Temp 99.1 F 11/07/22 00:52 Pulse 84 11/07/22 00:52 Resp 17 11/07/22 00:52 BP 95/50 L 11/07/22 00:52 Pulse Ox 93 11/07/22 00:52 O2 Del Method Room Air 11/07/22 00:52 O2 Flow Rate 2 11/06/22 14:30 BMI result Body Mass Index 19.1 Const: Other: General: AO X 3, no acute distress Resp: CTA bilateral CVS: S1,S2,RRR GI: +BS, NT, no distention Skin: No rash Neuro: motor grossly intact Psych: appropriate affect Objective Data Active Medications Acetaminophen (Acetaminophen Supp 650 Mg Supp.Rect) 650 mg ID Q6H PRN PRN Reason: Pain, Mild (Pain Scale 1-3) Ascorbic Acid (Ascorbic Acid 500 Mg Tablet) 1,000 mg PO DAILY [facility] Atorvastatin Calcium (Atorvastatin Calcium 40 Mg Tablet) 40 mg PO BEDTIME [facility] Last Admin: 11/06/22 20:33 Dose: 40 mg Documented By: FABIÁN Cyanocobalamin (Cyanocobalamin (Vitamin B-12) 1,000 Mcg Tablet) 1,000 mcg PO DAILY [facility] Ferrous Sulfate (Ferrous Sulfate 300 Mg/5 Ml Liquid) 150 mg PO Q2D [facility] Folic Acid (Folic Acid 1 Mg Tablet) 1 mg PO DAILY [facility] Levothyroxine Sodium (Levothyroxine Sodium 88 Mcg Tablet) 88 mcg PO DAILY@0600 [facility] Last Admin: 11/07/22 05:17 Dose: 88 mcg Documented By: FABIÁN Melatonin (Melatonin 3 Mg Tablet) 6 mg PO BEDTIME PRN PRN Reason: Insomnia Multivitamins/Vitamin C (Multivitamin Tablet) 1 tab PO DAILY [facility] Ondansetron HCl (Ondansetron Odt 8 Mg Tab.Rapdis) 8 mg TRANSLINGU Q8H PRN PRN Reason: Nausea Oxycodone HCl (Oxycodone Hcl Immed Release 5 Mg Tablet) 5 mg PO Q6H PRN PRN Reason: Breakthrough Pain, Moderate Pharmacy Consult (Consult Rx Perform Med Rec) 1 each MISCELLANE ONCE PRN PRN Reason: Consult order Sodium Chloride (0.9 % Sodium Chloride Flush 3 Ml Syringe) 3 ml IVFLUSH QSHIFT [facility] Last Admin: 11/06/22 20:36 Dose: 3 ml Documented By: FABIÁN Vitamin D (Cholecalciferol (Vitamin D3) 25 Mcg Tablet) 50 mcg PO DAILY [facility] Labs 11/07/22 05:27 11/06/22 09:37 Labs: Laboratory Results - last 24 hr 11/06/22 11/06/22 11/06/22 09:37 09:37 09:37 MCV 90.3 MCH 28.3 MCHC 31.4 RDW 20.9 H Plt Count 10 L* D MPV Not Reportable Immature Gran % (Auto) 1.9 H Neut % (Auto) 87.7 H Lymph % (Auto) 3.5 L Nye % (Auto) 6.7 Eos % (Auto) 0.0 Baso % (Auto) 0.2 Lymph # (Auto) 0.3 L Nye # (Auto) 0.6 Eos # (Auto) 0.0 Baso # (Auto) 0.0 Abs Immat Gran (auto) 0.17 H Absolute Neuts (auto) 7.8 Absolute Nucleated RBC 0.030 H Nucleated RBC % (auto) 0.3 H Smear Tech's Comments Anion Gap 14 Estim Creat Clear Calc 67.0 Estimated GFR > 60 Random Glucose 113 Calcium 7.5 L D COVID-19 (EDDIE) Negative COVID-19 Clin Com See Note Blood Type Antibody Screen Crossmatch 11/06/22 11/07/22 10:20 05:27 MCV 91.1 MCH 29.0 MCHC 31.9 RDW 20.0 H Plt Count 33 L D MPV 12.0 Immature Gran % (Auto) 0.9 H Neut % (Auto) 64.3 Lymph % (Auto) 21.3 Nye % (Auto) 11.5 H Eos % (Auto) 2.0 Baso % (Auto) 0.0 Lymph # (Auto) 0.7 L Nye # (Auto) 0.4 Eos # (Auto) 0.1 Baso # (Auto) 0.0 Abs Immat Gran (auto) 0.03 Absolute Neuts (auto) 2.2 Absolute Nucleated RBC 0.020 H Nucleated RBC % (auto) 0.6 H Smear Tech's Comments VERIFIED Anion Gap Estim Creat Clear Calc Estimated GFR Random Glucose Calcium COVID-19 (EDDIE) COVID-19 Clin Com Blood Type A Negative Antibody Screen NEGATIVE Crossmatch See Detail Assessment and Plan (1) Pancytopenia due to chemotherapy: Status: Acute Plan Pt is a 82-year-old male with a PMH significant for?non-small cell lung cancer followed by Dr. Marks and recently started chemotherapy last week, HTN, pancytopenia, PVD, BPH, hypothyroidism, who presents to the ED with?nausea, vomiting, diarrhea, and generalized weakness and has severe anemia and thrombocytopenia d/t chemo. #Pancytopenia d/t chemo (symptomatic anemia, low plat of 10, WBC less 5) all related to chemo -Tranfused RBC 2 units -Transfuesed 2 units of platlet -no singnificant change in H/H but pletlet is better -give 2 more units today and recheck labs tomorrow #Generalized weakness d/t anemia, chemo PT eval when blood count is better, transfusion as above #Dark-colored stools--on iron supplement, check occult blood #Hypothyroidism Continue levothyroxine #HLD Continue statin #HTN Hold antihypertensives due to hypotension #Lung cancer--outpatient f/u with oncology Need for inaptient: pancytopenia needing trasfusion and freqent lab check, weakness Time Spent With Patient Time: Total time managing care of this patient today ____ minutes. Quality Stroke Does the patient have a stroke diagnosis?: No VTE Prior VTE?: No VTE Risk Level:: Medical - moderate - high VTE Device Contraindication: N/A - Device Ordered VTE Drug Contraindication: Treatment Not Tolerated
[2022-11-07 08:21] LABS: Hematocrit 22.7 % (42.0-52.0); Mean Corpuscular HGB Conc 30.8 g/dl (31.0-36.0); Mean Corpuscular Hemoglobin 28.7 pg (27.0-33.0); Mean Platelet Volume 11.5 fL (9.4-12.4); NRBC Pct Auto 0.7 /100WBC (0.0-0.2); Red Blood Count 2.44 X10*6/uL (4.60-5.80); Red Cell Distribution Width 20.6 % (11.0-16.0)
[2022-11-07 08:25] LABS: Platelet Count 33 X10*3/uL (160-400)
[2022-11-07] MEDS: Ascorbic Acid 500 MG TABLET 1000 MG PO (08:26)
[2022-11-07] MEDS: Multivitamin TABLET 1 TAB PO (08:26)
[2022-11-07] MEDS: Cyanocobalamin (Vitamin B-12) 1,000 MCG TABLET 1000 MCG PO (08:26)
[2022-11-07] MEDS: Folic Acid 1 MG TABLET PO (08:26)
[2022-11-07] MEDS: Cholecalciferol (Vitamin D3) 25 MCG TABLET 50 MCG PO (08:26)
[2022-11-07] MEDS: Ferrous Sulfate 300 MG/5 ML LIQUID 150 MG PO (08:26)
[2022-11-07] MEDS: 0.9 % Sodium Chloride Flush 3 ML SYRINGE IVFLUSH ×4 (08:29→23:37)
--- NOTE | 2022-11-07 10:59 | PM.HEMONCPN ---
Medical Summary - Medical Summary Date of Service: 11/07/22 Primary Care Provider: Douglas Schultz PA-C Medical Summary: DIAGNOSIS: 1. ANEMIA. 2. THROMBOCYTOPENIA. 3. STATUS POST CHEMOTHERAPY. 4. NON-SMALL CELL LUNG CARCINOMA. 5. RAEB. Interval History Interval history: His wbc is now 3,000. The hct is 21 and he is being transfused. I agree with current management. Review of Systems - Constitutional Reports anorexia, Reports fatigue, Reports weakness, Reports weight loss - ENT Reports dizziness - Cardiovascular Reports shortness of breath - Respiratory Reports cough - Gastrointestinal Reports change in bowel habits - Genitourinary Genitourinary: Reports decreased urination - Musculoskeletal Reports muscle weakness - Neurologic Reports system reviewed and no additional complaints, except as documented, Reports weakness PMFSH Medical History: Medical History (Last Reviewed 11/06/22 @ 09:37 by Hailey Sapp MD) BPH (benign prostatic hyperplasia) COVID-19 vaccine series completed Elevated cholesterol H/O prostate cancer HTN (hypertension) Hypothyroid Non-small cell lung cancer (NSCLC) Port-A-Cath in place PVD (peripheral vascular disease) Functional capacity: wheelchair bound Surgical History: Surgical History (Last Reviewed 11/06/22 @ 09:37 by Hailey Sapp MD) H/O colonoscopy History of bone marrow biopsy History of carotid endarterectomy History of thoracentesis Hx of cataract extraction Hx of prostatectomy Hx of umbilical hernia repair Social History: Social History (Last Reviewed 10/20/22 @ 11:16 by Tawanna Daley RN) Living Situation History: Household Members: Spouse Housing: House Are you a primary rn primary care to a significant other at home: No Do you presently have visiting nurse or other home services: No Tobacco History: Patient Tobacco Use Status: Never used Tobacco Advance Directives: Advance Directives Date on File: 09/18/21 Occupation Assessmet: service: No Current occupational status: retired Home Medications and Allergies Current Medications: Current Medications Acetaminophen (Acetaminophen Supp 650 Mg Supp.Rect) 650 mg [place] Q6H PRN PRN Reason: Pain, Mild (Pain Scale 1-3) Ascorbic Acid (Ascorbic Acid 500 Mg Tablet) 1,000 mg PO DAILY [facility] Last Admin: 11/07/22 08:26 Dose: 1,000 mg Atorvastatin Calcium (Atorvastatin Calcium 40 Mg Tablet) 40 mg PO BEDTIME [facility] Last Admin: 11/06/22 20:33 Dose: 40 mg Cyanocobalamin (Cyanocobalamin (Vitamin B-12) 1,000 Mcg Tablet) 1,000 mcg PO DAILY [facility] Last Admin: 11/07/22 08:26 Dose: 1,000 mcg Ferrous Sulfate (Ferrous Sulfate 300 Mg/5 Ml Liquid) 150 mg PO Q2D [facility] Last Admin: 11/07/22 08:26 Dose: 150 mg Folic Acid (Folic Acid 1 Mg Tablet) 1 mg PO DAILY [facility] Last Admin: 11/07/22 08:26 Dose: 1 mg Levothyroxine Sodium (Levothyroxine Sodium 88 Mcg Tablet) 88 mcg PO DAILY@0600 [facility] Last Admin: 11/07/22 05:17 Dose: 88 mcg Melatonin (Melatonin 3 Mg Tablet) 6 mg PO BEDTIME PRN PRN Reason: Insomnia Multivitamins/Vitamin C (Multivitamin Tablet) 1 tab PO DAILY [facility] Last Admin: 11/07/22 08:26 Dose: 1 tab Ondansetron HCl (Ondansetron Odt 8 Mg Tab.Rapdis) 8 mg TRANSLINGU Q8H PRN PRN Reason: Nausea Oxycodone HCl (Oxycodone Hcl Immed Release 5 Mg Tablet) 5 mg PO Q6H PRN PRN Reason: Breakthrough Pain, Moderate Pharmacy Consult (Consult Rx Perform Med Rec) 1 each MISCELLANE ONCE PRN PRN Reason: Consult order Sodium Chloride (0.9 % Sodium Chloride Flush 3 Ml Syringe) 3 ml IVFLUSH QSHIFT [facility] Last Admin: 11/07/22 08:29 Dose: 3 ml Vitamin D (Cholecalciferol (Vitamin D3) 25 Mcg Tablet) 50 mcg PO DAILY [facility] Last Admin: 11/07/22 08:26 Dose: 50 mcg Home Medications Medication Instructions Recorded Confirmed Type ascorbic acid (vitamin C) 1,000 mg 1 g PO DAILY 07/30/21 11/06/22 History tablet (Vitamin C) aspirin 325 mg capsule 325 mg PO DAILY 07/30/21 11/06/22 History cholecalciferol (vitamin D3) 50 50 mcg PO DAILY 07/30/21 11/06/22 History mcg (2,000 unit) capsule (Vitamin D3) cyanocobalamin (vitamin B-12) 1,000 mcg PO DAILY 07/30/21 11/06/22 History 1,000 mcg capsule ferrous sulfate 325 mg (65 mg 32 mg PO Q OTHER DAY 07/30/21 11/06/22 History iron) tablet multivitamin 1 tab PO DAILY 07/30/21 11/06/22 History acetaminophen 500 mg tablet 500 mg PO Q6H PRN Pain 10/20/22 11/06/22 History atorvastatin 40 mg tablet 40 mg PO BEDTIME 11/06/22 11/06/22 History ondansetron 8 mg disintegrating 8 mg PO Q8H PRN Nausea 11/06/22 11/06/22 History tablet Allergies Allergy/AdvReac Type Severity Reaction Status Date / Time No Known Allergies Allergy Verified 10/29/22 07:14 [No Known Allergies*] Exam Vital signs: Vital Signs Temp 97.7 F 11/07/22 09:06 Pulse 75 11/07/22 09:06 Resp 16 11/07/22 09:06 BP 107/56 L 11/07/22 09:06 Pulse Ox 93 11/07/22 07:56 O2 Del Method Room Air 11/07/22 07:56 O2 Flow Rate 2 11/06/22 14:30 Intake & Output 11/06/22 11/07/22 11/07/22 18:59 06:59 18:59 Intake Total 1525 / 1923 398 / 1923 0 / 0 Output Total 500 / 800 300 / 800 Balance 1025 / 1123 98 / 1123 0 / 0 Urine Output (Average ml/kg/hr) 0.71 0.43 0.43 Intake: Intake, Oral Amount 480 / 600 120 / 600 Intake (Blood Product) Amount 545 / 823 278 / 823 0 / 0 Plt Aph Pas Pathreduced(E8342) 278 / 278 Unit [id number] Plt Aph Pas Pathreduced(E8343) 267 / 267 Unit [id number] Red Blood Cells Aph (E0685) 0 / 0 Unit [id number] Red Blood Cells Aph (E0686) 0 / 278 278 / 278 Unit [id number] Intake, Other Amount 500 / 500 Plt Aph Pas Pathreduced(E8342) 250 / 250 Unit [id number] Plt Aph Pas Pathreduced(E8343) 250 / 250 Unit [id number] Output: Output, Urine Amount 500 / 800 300 / 800 Other: Number of Incontinent Voids 1 Urine Urinal Urine Color Tea Weight 58.6 kg Weight in Grams 42937 Weight 58.6 kg BMI result Body Mass Index 19.1 - Constitutional Present: mild distress - Routine HEENT Exam Head: Present: atraumatic, normocephalic - Routine Neck Exam Present: full ROM - Routine Chest/Breast/Axilla Exam Comments: port right upperchest wall - Routine Respiratory Exam Present: decreased breath sounds - Routine Cardiovascular Exam Cardiovascular: Present: RRR, S1, S2 - Routine Abdominal Exam Present: normal bowel sounds, nontender - Routine Extremities Exam Present: nontender - Routine Skin Exam Present: intact - Routine Neurological Exam Present: alert, oriented X3 - Detailed Neurological Exam: Coma Scale Eye Opening: Spontaneous (4) Data - Labs CBC & Chem 7: 11/07/22 08:09 11/06/22 09:37 Labs: 11/06/22 09:37 Basic Metabolic Panel Stat COVID-19 ID NOW ([facility]) Stat 11/06/22 10:20 PRBC [Red Blood Cells] Stat Pheresis Platelets Routine Type and Screen Stat 11/07/22 05:27 Complete Blood Count Auto Diff AM SLIDE REVIEW Routine 11/07/22 08:09 Complete Blood Count no Diff Routine Laboratory Last Values WBC 3.0 X10*3/uL (4.8-10.8) L 11/07/22 08:09 RBC 2.44 X10*6/uL (4.60-5.80) L 11/07/22 08:09 Hgb 7.0 g/dl (14.0-18.0) L* 11/07/22 08:09 Hct 22.7 % (42.0-52.0) L 11/07/22 08:09 MCV 93.0 fL (80.0-98.0) 11/07/22 08:09 MCH 28.7 pg (27.0-33.0) 11/07/22 08:09 MCHC 30.8 g/dl (31.0-36.0) L 11/07/22 08:09 RDW 20.6 % (11.0-16.0) H 11/07/22 08:09 Plt Count 33 X10*3/uL (160-400) L 11/07/22 08:09 MPV 11.5 fL (9.4-12.4) 11/07/22 08:09 Immature Gran % (Auto) 0.9 % (0.0-0.4) H 11/07/22 05:27 Neut % (Auto) 64.3 % (45-73) 11/07/22 05:27 Lymph % (Auto) 21.3 % (20-40) 11/07/22 05:27 Wilson % (Auto) 11.5 % (2-11) H 11/07/22 05:27 Eos % (Auto) 2.0 % (0-4) 11/07/22 05:27 Baso % (Auto) 0.0 % (0-2) 11/07/22 05:27 Lymph # (Auto) 0.7 X10*3/uL (1.2-4.9) L 11/07/22 05:27 Wilson # (Auto) 0.4 X10*3/uL (0.1-1.2) 11/07/22 05:27 Eos # (Auto) 0.1 X10*3/uL (0.0-0.4) 11/07/22 05:27 Baso # (Auto) 0.0 X10*3/uL (0.0-0.2) 11/07/22 05:27 Abs Immat Gran (auto) 0.03 X10*3/uL (0.00-0.03) 11/07/22 05:27 Absolute Neuts (auto) 2.2 x10*3/uL (2.0-8.3) 11/07/22 05:27 Absolute Nucleated RBC 0.020 X10*3/uL (0.0-0.012) H 11/07/22 08:09 Nucleated RBC % (auto) 0.7 /100WBC (0.0-0.2) H 11/07/22 08:09 Smear Tech's Comments VERIFIED 11/07/22 05:27 Sodium 139 mmol/L (135-145) 11/06/22 09:37 Potassium 3.7 mmol/L (3.3-5.1) 11/06/22 09:37 Chloride 108 mmol/L (96-108) 11/06/22 09:37 Carbon Dioxide 21 mmol/L (22-29) L 11/06/22 09:37 Anion Gap 14 (12-20) 11/06/22 09:37 BUN 23 mg/dL (9-16) H 11/06/22 09:37 Creatinine 0.79 mg/dL (0.5-1.4) 11/06/22 09:37 Estim Creat Clear Calc 67.0 11/06/22 09:37 Estimated GFR > 60 11/06/22 09:37 Random Glucose 113 mg/dL (60-115) 11/06/22 09:37 Calcium 7.5 mg/dL (8.4-10.2) L D 11/06/22 09:37 COVID-19 (EDDIE) Negative (Negative) 11/06/22 09:37 COVID-19 Clin Com See Note 11/06/22 09:37 Blood Type A Negative 11/06/22 10:20 Antibody Screen NEGATIVE 11/06/22 10:20 Crossmatch See Detail 11/06/22 10:20 Assessment and Plan Patient Active problem list reviewed?: Yes (1) Pancytopenia due to chemotherapy Status: Acute Assessment and plan: I agree with management and will follow over the weekend. - Time Spent With Patient Time Spent with Patient (in minutes): 20
[2022-11-07] MEDS: Furosemide 20 MG/2 ML VIAL IVPUSH (13:02)
[2022-11-07] MEDS: oxyCODONE HCl Immed Release 5 MG TABLET PO ×2 (14:04→23:36)
--- NOTE | 2022-11-07 15:17 | MHC.CM.PN ---
PT REPORTS HE LIVES WITH HIS AND THEY TAKE CARE OF EACH OTHER HE DENIES USE OF ANY SERVICES OR DME HE REPORTS HE DOES NOT NEED ANYTHING HE IS COVID VAX X 5 PCP: MAICO WONG HCP ON FILE IMM DELIVERED CURRENT DC PLAN IS HOME NO SERVICES TO TRANSPORT
[2022-11-07] MEDS: Atorvastatin Calcium 40 MG TABLET PO (20:43)
[2022-11-08] MEDS: Levothyroxine Sodium 88 MCG TABLET PO (05:20)
[2022-11-08 07:46] VITALS: BP 120/60; PULSE 81; RESP 18; TEMP 36.8; O2SAT 94
--- NOTE | 2022-11-08 08:00 | P.PNIM_ITS ---
Subjective Subjective Date of Service: 11/08/22 Interval History: f/u on weakness, pancytopenia s/p rbc and platlets tranfusion feels better, h/h is better and he feels overall better Physical Exam Vital Signs: Vital Signs: Last Vital Signs Temp 98.2 F 11/08/22 07:46 Pulse 81 11/08/22 07:46 Resp 18 11/08/22 07:46 BP 120/60 11/08/22 07:46 Pulse Ox 94 11/08/22 07:46 O2 Del Method Room Air 11/08/22 07:46 O2 Flow Rate 2 11/06/22 14:30 BMI result Body Mass Index 19.1 Const: Other: General: AO X 3, no acute distress Resp: CTA bilateral CVS: S1,S2,RRR GI: +BS, NT, no distention Skin: No rash Neuro: motor grossly intact Psych: appropriate affect Objective Data Active Medications Acetaminophen (Acetaminophen Supp 650 Mg Supp.Rect) 650 mg [place] Q6H PRN PRN Reason: Pain, Mild (Pain Scale 1-3) Ascorbic Acid (Ascorbic Acid 500 Mg Tablet) 1,000 mg PO DAILY [facility] Last Admin: 11/07/22 08:26 Dose: 1,000 mg Documented By: ANKUR Atorvastatin Calcium (Atorvastatin Calcium 40 Mg Tablet) 40 mg PO BEDTIME [facility] Last Admin: 11/07/22 20:43 Dose: 40 mg Documented By: KENN Cyanocobalamin (Cyanocobalamin (Vitamin B-12) 1,000 Mcg Tablet) 1,000 mcg PO DAILY [facility] Last Admin: 11/07/22 08:26 Dose: 1,000 mcg Documented By: ANKUR Ferrous Sulfate (Ferrous Sulfate 300 Mg/5 Ml Liquid) 150 mg PO Q2D [facility] Last Admin: 11/07/22 08:26 Dose: 150 mg Documented By: ANKUR Folic Acid (Folic Acid 1 Mg Tablet) 1 mg PO DAILY [facility] Last Admin: 11/07/22 08:26 Dose: 1 mg Documented By: ANKUR Levothyroxine Sodium (Levothyroxine Sodium 88 Mcg Tablet) 88 mcg PO DAILY@0600 [facility] Last Admin: 11/08/22 05:20 Dose: 88 mcg Documented By: KENN Melatonin (Melatonin 3 Mg Tablet) 6 mg PO BEDTIME PRN PRN Reason: Insomnia Multivitamins/Vitamin C (Multivitamin Tablet) 1 tab PO DAILY [facility] Last Admin: 11/07/22 08:26 Dose: 1 tab Documented By: ANKUR Ondansetron HCl (Ondansetron Odt 8 Mg Tab.Rapdis) 8 mg TRANSLINGU Q8H PRN PRN Reason: Nausea Oxycodone HCl (Oxycodone Hcl Immed Release 5 Mg Tablet) 5 mg PO Q6H PRN PRN Reason: Breakthrough Pain, Moderate Last Admin: 11/07/22 23:36 Dose: 5 mg Documented By: KENN Pharmacy Consult (Consult Rx Perform Med Rec) 1 each MISCELLANE ONCE PRN PRN Reason: Consult order Sodium Chloride (0.9 % Sodium Chloride Flush 3 Ml Syringe) 3 ml IVFLUSH QSHIFT [facility] Last Admin: 11/07/22 23:37 Dose: 3 ml Documented By: KENN Vitamin D (Cholecalciferol (Vitamin D3) 25 Mcg Tablet) 50 mcg PO DAILY [facility] Last Admin: 11/07/22 08:26 Dose: 50 mcg Documented By: ANKUR Labs 11/07/22 08:09 11/06/22 09:37 Labs: Laboratory Results - last 24 hr 11/06/22 11/07/22 10:20 08:09 MCV 93.0 MCH 28.7 MCHC 30.8 L RDW 20.6 H Plt Count 33 L MPV 11.5 Absolute Nucleated RBC 0.020 H Nucleated RBC % (auto) 0.7 H Blood Type A Negative Antibody Screen NEGATIVE Crossmatch See Detail Assessment and Plan (1) Pancytopenia due to chemotherapy: Status: Acute Plan Pt is a 82-year-old male with a PMH significant for?non-small cell lung cancer followed by Dr. Marks and recently started chemotherapy last week, HTN, pancytopenia, PVD, BPH, hypothyroidism, who presents to the ED with?nausea, vomiting, diarrhea, and generalized weakness and has severe anemia and thrombocytopenia d/t chemo. #Pancytopenia d/t chemo (symptomatic anemia, low plat of 10, WBC less 5) all re lated to chemo -Tranfused RBC 3 units total -Transfuesed 2 units of platlet -no singnificant change in H/H but pletlet is better -H/H 7.7 and 23.7, Plt 22 -repeat tomorrow #Generalized weakness d/t anemia, chemo PT eval when blood count is better, transfusion as above #Dark-colored stools--on iron supplement, check occult blood #Hypothyroidism Continue levothyroxine #HLD Continue statin #HTN Hold antihypertensives due to hypotension #Lung cancer--outpatient f/u with oncology Need for inaptient: pancytopenia needing trasfusion and freqent lab check, weakness Time Spent With Patient Time: Total time managing care of this patient today ____ minutes. Quality Stroke Does the patient have a stroke diagnosis?: No VTE Prior VTE?: No VTE Risk Level:: Medical - moderate - high VTE Device Contraindication: N/A - Device Ordered VTE Drug Contraindication: Treatment Not Tolerated
[2022-11-08 08:11] LABS: Hemoglobin 7.7 g/dl (14.0-18.0); PLT CLUMP 1
[2022-11-08 08:13] LABS: Hematocrit 23.7 % (42.0-52.0); Mean Corpuscular HGB Conc 32.5 g/dl (31.0-36.0); Mean Corpuscular Hemoglobin 28.6 pg (27.0-33.0); Mean Corpuscular Volume 88.1 fL (80.0-98.0); Mean Platelet Volume 10.8 fL (9.4-12.4); Red Blood Count 2.69 X10*6/uL (4.60-5.80); Red Cell Distribution Width 19.1 % (11.0-16.0)
[2022-11-08 08:21] LABS: NRBC Pct Auto 3.1 /100WBC (0.0-0.2); Platelet Count 22 X10*3/uL (160-400); White Blood Count 1.6 X10*3/uL (4.8-10.8)
[2022-11-08] MEDS: Cholecalciferol (Vitamin D3) 25 MCG TABLET 50 MCG PO (08:28)
[2022-11-08] MEDS: Folic Acid 1 MG TABLET PO (08:28)
[2022-11-08] MEDS: Cyanocobalamin (Vitamin B-12) 1,000 MCG TABLET 1000 MCG PO (08:28)
[2022-11-08] MEDS: Multivitamin TABLET 1 TAB PO (08:28)
[2022-11-08] MEDS: Ascorbic Acid 500 MG TABLET 1000 MG PO (08:29)
[2022-11-08] MEDS: 0.9 % Sodium Chloride Flush 3 ML SYRINGE IVFLUSH ×2 (08:29→20:07)
[2022-11-08] MEDS: polyethylene glycoL 3350 17 GM POWD.PACK PO (14:20)
[2022-11-08] MEDS: Docusate Sodium 100 MG CAPSULE PO ×2 (14:20→20:06)
[2022-11-08 15:27] VITALS: BP 109/63; PULSE 77; RESP 16; TEMP 37.6; O2SAT 96
[2022-11-08] MEDS: oxyCODONE HCl Immed Release 5 MG TABLET PO (17:53)
[2022-11-08 19:10] VITALS: BP 107/54; PULSE 84; RESP 18; TEMP 37.1; O2SAT 95
[2022-11-08] MEDS: Atorvastatin Calcium 40 MG TABLET PO (20:06)
[2022-11-09 03:15] VITALS: BP 121/59; PULSE 88; RESP 18; TEMP 37.2; O2SAT 93
[2022-11-09] MEDS: Levothyroxine Sodium 88 MCG TABLET PO (05:32)
[2022-11-09 07:19] LABS: Hematocrit 24.3 % (42.0-52.0); Hemoglobin 7.8 g/dl (14.0-18.0); Mean Corpuscular HGB Conc 32.1 g/dl (31.0-36.0); Mean Corpuscular Hemoglobin 28.7 pg (27.0-33.0); Mean Corpuscular Volume 89.3 fL (80.0-98.0); Red Blood Count 2.72 X10*6/uL (4.60-5.80); Red Cell Distribution Width 18.5 % (11.0-16.0)
[2022-11-09 07:27] VITALS: BP 119/63; PULSE 80; RESP 18; TEMP 37.7; O2SAT 93
[2022-11-09 07:44] LABS: White Blood Count 1.3 X10*3/uL (4.8-10.8)
[2022-11-09 07:46] LABS: Platelet Count 19 X10*3/uL (160-400)
--- NOTE | 2022-11-09 07:57 | P.PNIM_ITS ---
Subjective Subjective Date of Service: 11/09/22 Interval History: f/u on weakness, pancytopenia s/p rbc and platlets tranfusion feels better, h/h is better and he feels overall better Physical Exam Vital Signs: Vital Signs: Last Vital Signs Temp 99.8 F 11/09/22 07:27 Pulse 80 11/09/22 07:27 Resp 18 11/09/22 07:27 BP 119/63 11/09/22 07:27 Pulse Ox 93 11/09/22 07:27 O2 Del Method Room Air 11/09/22 07:27 O2 Flow Rate 2 11/06/22 14:30 BMI result Body Mass Index 19.1 Const: Other: General: AO X 3, no acute distress Resp: CTA bilateral CVS: S1,S2,RRR GI: +BS, NT, no distention Skin: No rash Neuro: motor grossly intact Psych: appropriate affect Objective Data Active Medications Acetaminophen (Acetaminophen 325 Mg Tablet) 650 mg PO Q6H PRN PRN Reason: Pain, Moderate (Pain Scale 4-6 Ascorbic Acid (Ascorbic Acid 500 Mg Tablet) 1,000 mg PO DAILY [facility] Last Admin: 11/08/22 08:29 Dose: 1,000 mg Documented By: ROBERT Atorvastatin Calcium (Atorvastatin Calcium 40 Mg Tablet) 40 mg PO BEDTIME [facility] Last Admin: 11/08/22 20:06 Dose: 40 mg Documented By: KENN Cyanocobalamin (Cyanocobalamin (Vitamin B-12) 1,000 Mcg Tablet) 1,000 mcg PO DAILY [facility] Last Admin: 11/08/22 08:28 Dose: 1,000 mcg Documented By: ROBERT Docusate Sodium (Docusate Sodium 100 Mg Capsule) 100 mg PO BID [facility] Last Admin: 11/08/22 20:06 Dose: 100 mg Documented By: KENN Ferrous Sulfate (Ferrous Sulfate 300 Mg/5 Ml Liquid) 150 mg PO Q2D [facility] Last Admin: 11/07/22 08:26 Dose: 150 mg Documented By: ANKUR Folic Acid (Folic Acid 1 Mg Tablet) 1 mg PO DAILY [facility] Last Admin: 11/08/22 08:28 Dose: 1 mg Documented By: ROBERT Levothyroxine Sodium (Levothyroxine Sodium 88 Mcg Tablet) 88 mcg PO DAILY@0600 [facility] Last Admin: 11/09/22 05:32 Dose: 88 mcg Documented By: KENN Melatonin (Melatonin 3 Mg Tablet) 6 mg PO BEDTIME PRN PRN Reason: Insomnia Multivitamins/Vitamin C (Multivitamin Tablet) 1 tab PO DAILY [facility] Last Admin: 11/08/22 08:28 Dose: 1 tab Documented By: ROBERT Ondansetron HCl (Ondansetron Odt 8 Mg Tab.Rapdis) 8 mg TRANSLINGU Q8H PRN PRN Reason: Nausea Oxycodone HCl (Oxycodone Hcl Immed Release 5 Mg Tablet) 5 mg PO Q6H PRN PRN Reason: Breakthrough Pain, Moderate Last Admin: 11/08/22 17:53 Dose: 5 mg Documented By: ROBERT Pharmacy Consult (Consult Rx Perform Med Rec) 1 each MISCELLANE ONCE PRN PRN Reason: Consult order Polyethylene Glycol (Polyethylene Glycol 3350 17 Gm Powd.Pack) 17 gm PO DAILY PRN PRN Reason: Constipation Last Admin: 11/08/22 14:20 Dose: 17 gm Documented By: ROBERT Sodium Chloride (0.9 % Sodium Chloride Flush 3 Ml Syringe) 3 ml IVFLUSH QSHIFT [facility] Last Admin: 11/08/22 20:07 Dose: 3 ml Documented By: KENN Vitamin D (Cholecalciferol (Vitamin D3) 25 Mcg Tablet) 50 mcg PO DAILY [facility] Last Admin: 11/08/22 08:28 Dose: 50 mcg Documented By: ROBERT Labs 11/09/22 05:24 11/06/22 09:37 Labs: Laboratory Results - last 24 hr 11/08/22 11/09/22 07:53 05:24 MCV 88.1 89.3 MCH 28.6 28.7 MCHC 32.5 32.1 RDW 19.1 H 18.5 H Plt Count 22 L D 19 L* MPV 10.8 Not Reportable Absolute Nucleated RBC 0.050 H 0.040 H Nucleated RBC % (auto) 3.1 H 3.0 H Assessment and Plan (1) Pancytopenia due to chemotherapy: Status: Acute Plan Pt is a 82-year-old male with a PMH significant for?non-small cell lung cancer followed by Dr. Marks and recently started chemotherapy last week, HTN, pancytopenia, PVD, BPH, hypothyroidism, who presents to the ED with?nausea, vomiting, diarrhea, and generalized weakness and has severe anemia and thrombocytopenia d/t chemo. #Pancytopenia d/t chemo (symptomatic anemia, low plat of 10, WBC less 5) all related to chemo -Tranfusedt total of 3 units of RBCs and 2 units of platlet -Platlets stable at 20, H/H stable -discuss further with hem #Generalized weakness d/t anemia, chemo PT eval today #Dark-colored stools--on iron supplement, check occult blood #HypOthyroidism Continue levothyroxine #HLD Continue statin #HTN Hold antihypertensives due to hypotension #Lung cancer--outpatient f/u with oncology Need for inaptient: pancytopenia needing trasfusion and freqent lab check, weakness Time Spent With Patient Time: Total time managing care of this patient today ____ minutes. Quality Stroke Does the patient have a stroke diagnosis?: No VTE Prior VTE?: No VTE Risk Level:: Medical - moderate - high VTE Device Contraindication: N/A - Device Ordered VTE Drug Contraindication: Treatment Not Tolerated
[2022-11-09] MEDS: Cyanocobalamin (Vitamin B-12) 1,000 MCG TABLET 1000 MCG PO (08:43)
[2022-11-09] MEDS: Folic Acid 1 MG TABLET PO (08:43)
[2022-11-09] MEDS: Multivitamin TABLET 1 TAB PO (08:43)
[2022-11-09] MEDS: oxyCODONE HCl Immed Release 5 MG TABLET PO ×2 (08:43→19:26)
[2022-11-09] MEDS: Ascorbic Acid 500 MG TABLET 1000 MG PO (08:43)
[2022-11-09] MEDS: Docusate Sodium 100 MG CAPSULE PO ×2 (08:43→19:15)
[2022-11-09] MEDS: Cholecalciferol (Vitamin D3) 25 MCG TABLET 50 MCG PO (08:43)
[2022-11-09] MEDS: 0.9 % Sodium Chloride Flush 3 ML SYRINGE IVFLUSH ×2 (08:48→19:15)
[2022-11-09] MEDS: Ferrous Sulfate 300 MG/5 ML LIQUID 150 MG PO (08:51)
[2022-11-09] MEDS: polyethylene glycoL 3350 17 GM POWD.PACK PO (08:51)
[2022-11-09 10:52] VITALS: BP 119/63; PULSE 80; O2SAT 93
--- NOTE | 2022-11-09 11:52 | MHC.CLN ---
F/U DIET=REGULAR. ENSURE TID PROVIDES ADDITIONAL 1050 KCALS, 60 G PROTEIN. INTAKE VARIABLE, 25-75%. FOLLOW FOR INTAKE OF MEALS AND SUPPLEMENT.
[2022-11-09 13:36] VITALS: BP 119/63; PULSE 80; O2SAT 93
--- NOTE | 2022-11-09 13:55 | P.CDIM_ITS ---
PROVIDER RESPONSE TEXT: To clarify, the appropriate diagnosis supported by the clinical indicators: Malnutrition is/was present and is a clinical diagnosis: mild proteint calory malnutrition QUERY TEXT: PHYSICIAN'S DOCUMENTATION REQUEST Date of Query: 11/09/2022 10:00 AM EDT Patient Name: Celestino Gage Admit Date: 11/06/2022 Dear Pb Cotton, A review of the medical record indicates additional documentation may be needed. Please review below and update the documentation accordingly. Is there a diagnosis that correlates with the findings below: Clinical indicators: Per nutrition consult on 11/06: SIGNIFICANT WEIGHT LOSS X APPROX ONE MONTH=-7.7%. REPORTS WEIGHT LOSS SINCE STARTING CHEMO. Per provider progress notes: presents to the ED with nausea, vomiting, diarrhea, and generalized weakness and has severe anemia a nd thrombocytopenia d/t chemo. Per hematology oncology consult on 11/06: Reports lack of energy, Reports weakness, Reports weight loss Labs: BMI - 19.1 Height - 5ft 9in Weight - 58.6kg Other indicators/risk factors: -Patient with non-small cell lung cancer on chemotherapy To ensure the quality of the medical record, based on the above information and the recognized standa rd for (specify malnutrition severity), could you please verify which of the following diagnoses best reflects the kanika mccurdy's nutritional status. Malnutrition is/was present and is a clinical diagnosis (Please specify - mild, moderate, or severe) Malnutrition has been ruled out Other (Please specify) Other (explain) Clinically unable to determine (explain) Thank you, Nidhi Santos, MS, RN, CCRN Use of terms such as suspected, likely, concern for, or probable (associated with a specific diagnosi s that is being evaluated, monitored, or treated as if it exists) are acceptable and can be coded in the inpatient se tting, when documented at the time of discharge. Please use your independent medical judgment in providing your response. THIS QUERY IS PART OF THE PERMANENT MEDICAL RECORD
--- NOTE | 2022-11-09 15:52 | MHC.CM.PN ---
pt is recommending str pts worked at [employer] [employer] for 20 years she is agreeable
[2022-11-09 16:00] VITALS: BP 105/53; PULSE 74; RESP 17; TEMP 37.3; O2SAT 93
[2022-11-09 19:14] VITALS: BP 110/55; PULSE 83; RESP 17; TEMP 37.4; O2SAT 95
[2022-11-09] MEDS: Atorvastatin Calcium 40 MG TABLET PO (19:15)
[2022-11-09] MEDS: Melatonin 3 MG TABLET 6 MG PO (20:57)
[2022-11-10 03:45] VITALS: BP 104/58; PULSE 81; RESP 17; TEMP 37.2; O2SAT 94
[2022-11-10] MEDS: Levothyroxine Sodium 88 MCG TABLET PO (05:10)
[2022-11-10 07:15] VITALS: BP 112/61; PULSE 85; RESP 17; TEMP 37; O2SAT 93
[2022-11-10] MEDS: 0.9 % Sodium Chloride Flush 3 ML SYRINGE IVFLUSH (07:28)
[2022-11-10] MEDS: Cyanocobalamin (Vitamin B-12) 1,000 MCG TABLET 1000 MCG PO (07:56)
[2022-11-10] MEDS: Ascorbic Acid 500 MG TABLET 1000 MG PO (07:56)
[2022-11-10] MEDS: Cholecalciferol (Vitamin D3) 25 MCG TABLET 50 MCG PO (07:56)
[2022-11-10] MEDS: Docusate Sodium 100 MG CAPSULE PO (07:57)
[2022-11-10] MEDS: Folic Acid 1 MG TABLET PO (07:57)
[2022-11-10] MEDS: Multivitamin TABLET 1 TAB PO (07:57)
[2022-11-10 08:10] LABS: Hematocrit 23.7 % (42.0-52.0); Hemoglobin 7.7 g/dl (14.0-18.0); Mean Corpuscular HGB Conc 32.5 g/dl (31.0-36.0); Mean Corpuscular Hemoglobin 29.4 pg (27.0-33.0); Mean Corpuscular Volume 90.5 fL (80.0-98.0); Mean Platelet Volume 11.6 fL (9.4-12.4); Red Blood Count 2.62 X10*6/uL (4.60-5.80); Red Cell Distribution Width 18.7 % (11.0-16.0)
[2022-11-10 08:11] LABS: NRBC Pct Auto 3.5 /100WBC (0.0-0.2)
[2022-11-10 08:16] LABS: Platelet Count 16 X10*3/uL (160-400); White Blood Count 1.4 X10*3/uL (4.8-10.8)
[2022-11-10] MEDS: polyethylene glycoL 3350 17 GM POWD.PACK PO ×2 (09:20→11:56)
[2022-11-10 11:30] VITALS: BP 112/61; PULSE 85; O2SAT 93
[2022-11-10] MEDS: bisacodyL 10 MG SUPP.RECT PR (11:56)
--- NOTE | 2022-11-10 14:56 | MHC.CM.PN ---
pt being dcd today to [facility] at [address] today by agustin
--- NOTE | 2022-11-10 15:13 | PM.DS ---
DS: Providers Provider Date of Service: 11/10/22 Date of admission: 11/06/22 11:05 Date of discharge: 11/10/22 Primary care physician: Douglas Schultz PA-C Consults: 11/06/22 12:25 Consult to Hematology / Oncology Routine Consulting Provider: Simeon Marks Reason for consultation: Anemia, thrombocytopenia, on chemotherapy DS: Diagnosis Discharge Diagnosis (1) Pancytopenia due to chemotherapy: Status: Acute DS: Summary Hospital Course Hospital Course: 82-year-old male with a PMH significant for?non-small cell lung cancer followed by Dr. Marks and recently started chemotherapy last week, HTN, pancytopenia, PVD, BPH, hypothyroidism, who presents to the ED with?nausea, vomiting, diarrhea, and generalized weakness.? Patient originally presented to [facility] ED where his hemoglobin was noted to be 5.9 and he received 1 unit of blood, then transferred here to [facility] for further evaluation of anemia and thrombocytopenia. Hemoglobin at time of presentation at [place] was 6.4, patient is set to receive another unit of blood.? Patient states that last night he was lightheaded and dizzy with standing and unable to to the bathroom.? He also experienced nausea and vomiting especially standing.? Patient reports dark-colored diarrhea, on lactulose and iron supplementation.? Patient also experienced generalized pain and discomfort last night, improved after receiving 1 unit of PRBC.? Patient now states that he is resting comfortably and feeling relaxed.? Patient currently denies nausea, vomiting, generalized pain.? Patient also denies spontaneous bleeding, no epistaxis, no gingival bleeding.? Denies fever, chills no abdominal pain. In the ED patient was afebrile but slightly hypotensive at 112/50, satting at 93 on RA.? Placed on nasal cannula which improved O2 sat 98%. Labs were significant for H&H of 6.4 over 20.4, platelets of 10 (down from 85 on 10/26/2022), BUN slightly elevated 23, creatinine 0.79. Pt will be admitted to the hospital for treatment of anemia and thrombocytopenia likely secondary to chemotherapy. Hospital course: Patient was admitted due to nausea vomiting diarrhea and pancytopenia: Possible above symptoms are related to chemotherapy. Patient did not had any nausea vomiting and diarrhea afterwards and instead has constipated - which is being treated with laxatives. oxycodone adjusted. monitor for constipation closely by the oxycodone. continue laxatives- hold if patient develops diarrhea. pancytopenia: Seems to be improving- patient received 3 PRBC and 2 units of platelets during this admission: H&H is stable around 7.7, denies any gross bleeding. Platelets are in 16 range( discussed with the hemtology Dr marks -no gross bleeding ,so moniter cbc outpatient in 1 week). Patient is going to the rehab under 1135 Medicare waiver. covid for rehab placement added. follow up with pcp and hemtology outpatient. assessment and plan coordination time spent 50 minute, discussed with the patient in detail length he understand and in agreement with the above plan. Time Spent with Patient Time attestation: Total time managing care of this patient today ____ minutes. Discharge coordination time: Greater than 30 minutes Quality: Safe Use of Opioids Does Pt have an Active Cancer Diagnosis on the Problem List?: No Quality: Stroke Does the patient have a stroke diagnosis?: No Physical Exam Vital Signs: Vital Signs: Last Vital Signs Temp 98.6 F 11/10/22 07:15 Pulse 85 11/10/22 11:30 Resp 17 11/10/22 07:15 BP 112/61 11/10/22 11:30 Pulse Ox 93 11/10/22 11:30 O2 Del Method Room Air 11/10/22 07:15 O2 Flow Rate 2 11/06/22 14:30 BMI result Body Mass Index 19.1 General: AO X 3, no acute distress Resp:? CTA bilateral CVS: S1,S2,RRR GI: +BS, NT, no distention Skin: No rash Neuro:? motor grossly intact Psych: appropriate affect DS: Data Data Completed and Pending Labs on day of discharge: Laboratory Results - last 24 hr 11/10/22 07:52 WBC 1.4 L RBC 2.62 L Hgb 7.7 L Hct 23.7 L MCV 90.5 MCH 29.4 MCHC 32.5 RDW 18.7 H Plt Count 16 L* MPV 11.6 Absolute Nucleated RBC 0.050 H Nucleated RBC % (auto) 3.5 H Discharge Plan Discharge Anticipated Discharge Date/Time: 11/10/22 15:05 Patient Disposition: Xfer SNF Discharge Diagnosis: pancytopenia secondary to chemotherapy, constipation. Referrals: [facility] [Other] - 1 Week Douglas Schultz PA-C [Primary Care Provider] - 1 Week Discharge Medications: New docusate sodium 100 mg Capsule 100 mg PO BID Qty: 60 0RF polyethylene glycol 3350 17 gram Powder In Packet 17 g PO BID PRN (Reason: Constipation) Qty: 1 0RF Continued levothyroxine 88 mcg tablet 88 mcg PO QAM Qty: 90 1RF multivitamin Tablet 1 tab PO DAILY ascorbic acid (vitamin C) [Vitamin C] 1,000 mg Tablet 1 g PO DAILY ferrous sulfate 325 mg (65 mg iron) Tablet 32 mg PO Q OTHER DAY Rx Instructions: 1/2 tablet every other day cholecalciferol (vitamin D3) [Vitamin D3] 50 mcg (2,000 unit) Capsule 50 mcg PO DAILY cyanocobalamin (vitamin B-12) 1,000 mcg Capsule 1,000 mcg PO DAILY aspirin 325 mg Capsule 325 mg PO DAILY oxycodone 5 mg Tablet 5 mg PO Q6H PRN (Reason: Breakthrough Pain, Moderate) Qty: 50 0RF Rx Instructions: Partial Fill upon patient request. acetaminophen [Tylenol Ex Str Rapid Release] 500 mg Tablet 500 mg PO Q6H PRN (Reason: Pain) folic acid 1 mg Tablet 1 mg PO DAILY Qty: 90 3RF dexamethasone 4 mg Tablet 4 mg PO BID Qty: 60 3RF Rx Instructions: Take 4 mg b.i.d. day before and day after Alimta. Every 3 weeks. atorvastatin 40 mg tablet 40 mg PO BEDTIME ondansetron 8 mg tablet,disintegrating 8 mg PO Q8H PRN (Reason: Nausea) Discontinued oxycodone 5 mg Tablet 5 mg PO Q6H PRN (Reason: Breakthrough Pain, Moderate) Qty: 50 0RF Rx Instructions: Partial Fill upon patient request. Discharge Orders: Discharge Order (Routine); Ordered 11/10/22 Ordered By: Kael Lucio Diet: Advance to usual diet Activity on Discharge: As tolerated Stand Alone Forms: Patient Portal Discharge page Care Plan Goals: Patient was admitted due to nausea vomiting diarrhea and pancytopenia: Possible above symptoms are related to chemotherapy. Patient did not had any nausea vomiting and diarrhea afterwards and instead has constipated - which is being treated with laxatives. oxycodone adjusted. monitor for constipation closely by the oxycodone. continue laxatives- hold if patient develops diarrhea. pancytopenia: Seems to be improving- patient received 3 PRBC and 2 units of platelets during this admission: H&H is stable around 7.7, denies any gross bleeding. Platelets are in 16 range( discussed with the hemtology Dr marks -no gross bleeding ,so moniter cbc outpatient in 1 week). Patient is going to the rehab under 1135 Medicare waiver. covid for rehab placement added. follow up with pcp and hemtology outpatient. Health Concerns: as above. Plan of Treatment: As above. Assessment: As above.
[2022-11-10 15:41] VITALS: BP 114/58; PULSE 80; RESP 17; TEMP 37.3; O2SAT 93
[2022-11-10 15:46] LABS: IDNOW Serial# 6674DD1D
[2022-11-10 15:47] LABS: COVID-19 Test Negative (Negative)
== END 2022-11-10 16:40 | disposition skilled nursing facility (03) | DRG 809 ==
LOC: HO.ED 10:29 → HO.EDOVER 11:10 → HO.S3 11:53
PROVIDERS: Admitting Provider Internal Medicine; Emergency Provider Emergency Medicine Emergency Medical Services; PCP Physician Assistant; Visit Provider Internal Medicine
DX: D61.810 Antineoplastic chemotherapy induced pancytopenia (principal); C34.12 Malignant neoplasm of upper lobe, left bronchus or lung; E44.1 Mild protein-calorie malnutrition; Z68.1 Body mass index [BMI] 19.9 or less, adult; E78.00 Pure hypercholesterolemia, unspecified; T45.1X5A Adverse effect of antineoplastic and immunosuppressive drugs, initial encounter; E03.9 Hypothyroidism, unspecified; I73.9 Peripheral vascular disease, unspecified; D46.20 Refractory anemia with excess of blasts, unspecified; I10 Essential (primary) hypertension; Z20.822 Contact with and (suspected) exposure to COVID-19; Z79.82 Long term (current) use of aspirin; Z79.890 Hormone replacement therapy; Z79.899 Other long term (current) drug therapy
CPT/HCPCS: 36415; 80048; 85025; 85027; 86850; 86900; 86901; 86923; 87635; 97162; 99285; J1940; P9016; P9073

== ENCOUNTER 2022-12-22 11:43 | Outpatient (REF) | payer MEDICARE, SELFPAY ==
--- NOTE | ~2022-12-22 | XR_ITS ---
EXAMINATION: XR CHEST CLINICAL INFORMATION: Pleural effusion. Follow-up. History left pulmonary adenocarcinoma. COMPARISON: Chest radiographs 10/26/2022, 09/23/2022; PET/CT 10/13/2022. TECHNIQUE: 2 views of the chest were obtained. FINDINGS: There is a right tunneled port with tip at SVC/right atrial confluence. Heart size normal. No pneumothorax. Right hemithorax clear. There is left effusion slightly decreased from prior study. The hilar and mediastinal contours are stable. Bony structures again show mild compression midthoracic vertebral body. No acute bony abnormality. XR/XR chest 2V IMPRESSION: - Left effusion slightly decreased from prior exam 10/27/2019.
== END 2022-12-22 11:44 | disposition home or self-care (01) ==
LOC: HO.XRAY 11:43
PROVIDERS: PCP Physician Assistant; Visit Provider Internal Medicine Medical Oncology
DX: C34.92 Malignant neoplasm of unspecified part of left bronchus or lung (principal)
CPT/HCPCS: 71046

== ENCOUNTER 2023-01-07 11:30 | Outpatient (RCR) | payer MEDICARE, SELFPAY ==
[2021-07-30 10:53] VITALS: PULSE 68; RESP 16; TEMP 36.7; O2SAT 97; BMI 21.1
--- NOTE | 2021-07-30 10:53 | PM.HEMONCCN ---
Subjective - Subjective Chief complaint: Consult for: Anemia. Patient: new to practice Consult date: 07/30/21 Primary Care Provider: Douglas Schultz PA-C Medical Summary: DIAGNOSIS: ANEMIA. HPI - Consult Narrative Reason for consult: Consult for: Anemia. Narrative: Celestino Gage is a pleasant 81 year old gentleman, he tells me that his hemoglobin has been trickling down over the years. Review of his labs in the computer revealed: 06/16, CBC: WBC 10.4, HGB 11, HCT 34.2, MCV 103.6, PLT 135. Ferritin: 184. B12 1130. Folate >20. Previous blood count: 04/23/2021 hemoglobin 10.9. 10/15/2020: Hemoglobin 11.9. 01/12/19: Hemoglobin 13. He has been taking half a iron tablet, every other day for the past month. ROS: He is quite active so he does get tired at the end of the day. Denies fever nor chills. His appetite is okay. Denies weight loss. No headache no dizziness. He denies chest pain or trouble breathing. No cough no sputum. No abdominal pain nausea vomiting heartburn indigestion. Bowels are working. He denies diarrhea. No gross blood in the stools. Stool is dark from the iron. No dysuria or hematuria. 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 No focal weakness. He denies depression. No skin rashes nor pruritus. FAMILY HISTORY: Denies any known heme Onc problems in the family. 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 He is . Has no children. He denies smoking. No alcohol. Review of Systems - Constitutional Reports system reviewed and no additional complaints, except as documented - Eyes Reports system reviewed and no additional complaints, except as documented - ENT Reports system reviewed and no additional complaints, except as documented - Cardiovascular Reports system reviewed and no additional complaints, except as documented - Respiratory Reports no additional respiratory complaints - Gastrointestinal Reports system reviewed and no additional complaints, except as documented - Genitourinary Genitourinary: Reports no additional male genitourinary complaints - Musculoskeletal Reports system reviewed and no additional complaints, except as documented - Integumentary/Breasts Skin/Breast: Reports no additional skin complaints - Neurologic Reports system reviewed and no additional complaints, except as documented - Psychiatric Reports system reviewed and no additional complaints, except as documented - Endocrine Reports no additional endocrine complaints - Hematologic/Lymphatic Reports system reviewed and no additional complaints, except as documented - Allergic/Immunologic Reports system reviewed and no additional complaints, except as documented Oncology Screenings - ECOG Performance Status ECOG Performance Status: 0 PMFSH Medical History: Medical History (Last Reviewed 07/30/21 @ 11:00 by Gretta Ramsey) H/O prostate cancer HTN (hypertension) Functional capacity: independent ambulation Patient : No Social History: Social History (Last Updated 07/30/21 @ 11:01 by Gretta Ramsey) Living Situation History: Housing: House Tobacco History: Patient Tobacco Use Status: Never used Tobacco Substance Use History: Use of substances other than those prescribed or required for medical reasons: No Nutrition Assessment: Patient : No Occupation Assessmet: service: No Current occupational status: retired Home Medications and Allergies Home Medications Medication Instructions Recorded Confirmed Type ascorbic acid (vitamin C) 1,000 mg 1 g PO Q6H 07/30/21 07/30/21 History tablet (Vitamin C) aspirin 325 mg capsule 325 mg PO DAILY 07/30/21 07/30/21 History cholecalciferol (vitamin D3) 50 50 mcg PO DAILY 07/30/21 07/30/21 History mcg (2,000 unit) capsule (Vitamin D3) cyanocobalamin (vitamin B-12) 1,000 mcg PO DAILY 07/30/21 07/30/21 History 1,000 mcg capsule ferrous sulfate 325 mg (65 mg 325 mg PO Q OTHER DAY 07/30/21 07/30/21 History iron) tablet lisinopril 10 mg tablet 5 mg PO DAILY 07/30/21 07/30/21 History multivitamin 1 tab PO DAILY 07/30/21 07/30/21 History Allergies Allergy/AdvReac Type Severity Reaction Status Date / Time No Known Allergies Allergy Verified 07/30/21 11:01 [No Known Allergies*] Physical Exam - Constitutional Present: no acute distress - Routine HEENT Exam Head: Present: normal inspection ENT: Present: mucous membranes moist - Routine Neck Exam Present: supple - Routine Respiratory Exam Present: CTAB - Routine Cardiovascular Exam Cardiovascular: Present: RRR, S1, S2 - Routine Abdominal Exam Present: nontender - Routine Extremities Exam Present: nontender - Routine Skin Exam Present: intact, normal turgor - Routine Neurological Exam Present: alert, oriented X3 - Detailed Neurological Exam: Coma Scale Eye Opening: Spontaneous (4) Verbal Response: Oriented (5) - Routine Psychiatric Exam Present: depressed Hem/Onc Consult Result - Labs CBC & Chem 7: 07/30/21 11:30 07/30/21 11:30 Assessment and Plan Patient Active problem list reviewed?: Yes (1) Macrocytic anemia Status: Acute Assessment and plan: This is a pleasant 81-year-old gentleman with a history of macrocytic anemia. DIFFERENTIAL DIAGNOSIS: 1. B12 FOLATE DEFICIENCY: B12 LEVEL 1130. FOLATE: >20. 2. UNDERLYING MYELO INFILTRATIVE DISORDER: MDS can present with macrocytosis. Differential multiple myeloma. 3. THYROID DISEASE CAN GIVE RISE TO MACROCYTOSIS. 4. COPD: Can also cause increased red cell size. 5. MULTIFACTORIAL ANEMIA: With combined iron deficiency. Iron studies: 141/326/47/209. He has been taking half a iron tablet, every other day for the past month. PLAN: I will proceed with further evaluation. Check SIEP: no monoclonal spike. Check LDH: 245. Checked TSH: 1.12 and T4. His hemoglobin is quite stable for now. Will continue to monitor. If the hemoglobin declines to 10 or below will proceed with a bone marrow exam for further evaluation. He will return in 3 months for a follow-up visit. Thanks for the consult, CC: Joe Schultz - Time Spent With Patient Time Spent with Patient (in minutes): 35
[2021-07-30 11:41] LABS: Baso%MD 0.2 %; Eos%MD 1.7 %; Hematocrit 36.8 % (42.0-52.0); Hemoglobin 12.2 g/dl (14.0-18.0); IG%MD 1.1 %; Lymph%MD 16.7 %; Mean Corpuscular HGB Conc 33.2 g/dl (31.0-36.0); Mean Corpuscular Volume 99.5 fL (80.0-98.0); Mono%MD 28.2 %; Neut%MD 52.1 %; PLT CLUMP 1; Red Cell Distribution Width 16.9 % (11.0-16.0)
[2021-07-30 11:42] LABS: Mean Platelet Volume 12.3 fL (9.4-12.4); Platelet Count 140 X10*3/uL (160-400); White Blood Count 11.6 X10*3/uL (4.8-10.8)
[2021-07-30 11:52] LABS: Alanine Aminotransferase 18 U/L (0-40); Albumin Level 4.5 g/dL (3.5-5.0); Alkaline Phosphatase 65 U/L (39-117); Anion Gap 14 (12-20); Aspartate Amino Transferase 21 U/L (5-37); Bilirubin Total 0.8 mg/dL (0.0-1.0); Blood Urea Nitrogen 19 mg/dL (9-16); Calcium 9.6 mg/dL (8.4-10.2); Carbon Dioxide 24 mmol/L (22-29); Chloride 105 mmol/L (96-108); Creatinine Clr Calc Pharmacy 50.8; Estimated Glomerular Filt Rate > 60; Glucose Random 82 mg/dL (60-115); Iron 141 mcg/dL (45-160); Lactate Dehydrogenase 245 U/L (118-273); Percent Iron Saturation 43 % (15-50); Potassium 4.5 mmol/L (3.3-5.1); Sodium 138 mmol/L (135-145); Total Iron Binding Capacity 326 mcg/dL (228-428); Total Protein 8.1 g/dL (6.5-8.0); Unsaturated Iron Binding 185 ug/dL
[2021-07-30 12:12] LABS: Ferritin 209 ng/mL (20-250); TSH reflex Free T4 1.12 uIU/mL (0.32-4.0)
[2021-07-30 12:15] LABS: Band Neutrophils Percent 1 % (3-5); Eosinophils Absolute Manual 0.2 X10*3/uL (0.0-0.4); Eosinophils Percent Manual 2 % (0-4); Lymphocytes Absolute Manual 2.2 X10*3/uL (1.2-4.9); Lymphocytes Percent Manual 19 % (20-40); Monocytes Absolute Manual 3.2 X10*3/uL (0.1-1.2); Monocytes Percent Manual 28 % (2-11); Neutrophils Absolute Manual 5.9 X10*3/uL (2.0-8.3); Neutrophils Percent Manual 50 % (45-73)
[2021-07-30 12:16] LABS: Macrocytosis 1+ (5-14) /OIF; Platelet Estimate DECREASED (NORMAL); Platelet Morphology Comment NORMAL; RBC Morphology NOTED
[2021-08-05 07:38] LABS: IgA 156 mg/dL (70-320); IgG 1281 mg/dL (600-1540); IgM 316 mg/dL (50-300)
[2021-09-04 10:42] VITALS: BP 118/94; PULSE 66; RESP 18; TEMP 36.6; O2SAT 98; BMI 21.3
[2021-09-04 10:58] LABS: Basophils Percent Auto 0.2 % (0-2); Eosinophils Absolute Auto 0.2 X10*3/uL (0.0-0.4); Eosinophils Percent Auto 1.5 % (0-4); Hematocrit 35.5 % (42.0-52.0); Hemoglobin 11.5 g/dl (14.0-18.0); Imm Gran Abs Auto 0.18 X10*3/uL (0.00-0.03); Imm Gran Pct Auto 1.6 % (0.0-0.4); Lymphocytes Absolute Auto 1.7 X10*3/uL (1.2-4.9); MANUAL DIFF FLAG SCAN; Mean Corpuscular HGB Conc 32.4 g/dl (31.0-36.0); Mean Corpuscular Hemoglobin 32.7 pg (27.0-33.0); Mean Corpuscular Volume 100.9 fL (80.0-98.0); Mean Platelet Volume 12.1 fL (9.4-12.4); Monocytes Absolute Auto 3.3 X10*3/uL (0.1-1.2); Monocytes Percent Auto 28.8 % (2-11); Neutrophils Absolute Auto 6.1 x10*3/uL (2.0-8.3); Neutrophils Percent Auto 52.9 % (45-73); Platelet Count 133 X10*3/uL (160-400); Red Blood Count 3.52 X10*6/uL (4.60-5.80); Red Cell Distribution Width 16.7 % (11.0-16.0); SCAN SMEAR FLAG 1; White Blood Count 11.6 X10*3/uL (4.8-10.8)
--- NOTE | 2021-09-04 11:04 | P.PNHO_ITS ---
Medical Summary - Medical Summary Date of Service: 09/04/21 Chief complaint: Follow-up for: Anemia. Medical Summary: DIAGNOSIS: ANEMIA. Interval History Interval history: Celestino Gage is a pleasant 81 year old gentleman, here for a follow-up visit. He tells me he feels about the same. He is quite active so he does get tired later in the day. Denies fever nor chills. His appetite is okay. Denies weight loss. No headache no dizziness. He denies chest pain or trouble breathing. No cough no sputum. No abdominal pain nausea vomiting heartburn indigestion. Bowels are working. He denies diarrhea. No gross blood in the stools. Stool is dark from the iron. No dysuria or hematuria. 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 No focal weakness. He denies depression. No skin rashes nor pruritus. PAST MEDICAL HISTORY: He mentioned that his hemoglobin has been trickling down over the years. Review of his labs in the computer revealed: 06/16, CBC: WBC 10.4, HGB 11, HCT 34.2, MCV 103.6, PLT 135. Ferritin: 184. B12 1130. Folate >20. Previous blood count: 04/23/2021 hemoglobin 10.9. 10/15/2020: Hemoglobin 11.9. 01/12/19: Hemoglobin 13. He has been taking half a iron tablet, every other day for the past couple of months. FAMILY HISTORY: Denies any known heme Onc problems in the family. 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 He is . Has no children. He denies smoking. No alcohol. Review of Systems - Constitutional Reports no additional constitutional complaints - Eyes Reports no additional eye complaints - ENT Reports no additional ear, nose, mouth, and throat complaints - Cardiovascular Reports no additional cardiovascular complaints - Respiratory Reports no additional respiratory complaints - Gastrointestinal Reports no additional gastrointestinal complaints - Genitourinary Genitourinary: Reports no additional male genitourinary complaints - Musculoskeletal Reports no additional musculoskeletal complaints - Integumentary/Breasts Skin/Breast: Reports no additional skin complaints - Neurologic Reports no additional neurologic complaints - Psychiatric Reports no additional psychiatric complaints - Endocrine Reports no additional endocrine complaints - Hematologic/Lymphatic Reports no additional hematologic/lymphatic complaints - Allergic/Immunologic Reports no additional allergic/immunologic complaints [facility] Medical History: Medical History (Last Reviewed 09/04/21 @ 10:43 by Angel Padilla RN) H/O prostate cancer HTN (hypertension) Functional capacity: independent ambulation Patient : No Social History: Social History (Last Reviewed 09/04/21 @ 10:44 by Angel Padilla RN) Living Situation History: Housing: House Tobacco History: Patient Tobacco Use Status: Never used Tobacco Substance Use History: Use of substances other than those prescribed or required for medical reasons : No Nutrition Assessment: Patient : No Occupation Assessmet: service: No Current occupational status: retired Oncology Screenings - ECOG Performance Status ECOG Performance Status: 1 Home Medications and Allergies Home Medications Medication Instructions Recorded Confirmed Type ascorbic acid (vitamin 1 g PO DAILY 07/30/21 09/04/21 History C) 1,000 mg tablet (Vitamin C) aspirin 325 mg capsule 325 mg PO DAILY 07/30/21 09/04/21 History cholecalciferol 50 mcg PO DAILY 07/30/21 09/04/21 History (vitamin D3) 50 mcg (2,000 unit) capsule (Vitamin D3) cyanocobalamin (vitamin 1,000 mcg PO DAILY 07/30/21 09/04/21 History B-12) 1,000 mcg capsule ferrous sulfate 325 mg 32 mg PO Q OTHER DAY 07/30/21 09/04/21 History (65 mg iron) tablet lisinopril 10 mg tablet 5 mg PO DAILY 07/30/21 09/04/21 History multivitamin 1 tab PO DAILY 07/30/21 09/04/21 History ketorolac 0.5 % eye 1 drp OPHTHALMIC-LEFT 09/04/21 09/04/21 History drops DAILY prednisolone acetate 1 1 drp OPHTHALMIC-LEFT 09/04/21 09/04/21 History % eye DAILY drops,suspension Allergies Allergy/AdvReac Type Severity Reaction Status Date / Time No Known Allergies Allergy Verified 09/04/21 10:44 [No Known Allergies*] Exam Vital signs: Vital Signs Temp 97.9 F 09/04/21 10:42 Pulse 66 09/04/21 10:42 Resp 18 09/04/21 10:42 BP 118/94 H 09/04/21 10:42 Pulse Ox 98 09/04/21 10:42 Intake & Output 09/03/21 09/04/21 09/04/21 18:59 06:59 18:59 Other: Weight 65.5 kg Weight in Grams [id number] Weight 65.5 kg BMI result [place] 4d Body Mass Index 21.3 - Constitutional Present: no acute distress - Routine HEENT Exam Head: Present: normal inspection Eye: Present: normal appearance ENT: Present: mucous membranes moist - Routine Neck Exam Present: full ROM - Routine Respiratory Exam Present: CTAB - Routine Cardiovascular Exam Cardiovascular: Present: RRR, S1, S2 - Routine Abdominal Exam Present: nontender - Routine Extremities Exam Present: nontender - Routine Back/Spine/Pelvis Exam Back/Spine: Present: full ROM - Routine Skin Exam Present: intact, normal turgor - Routine Neurological Exam Present: alert, oriented X3 - Detailed Neurological Exam: Coma Scale Eye Opening: Spontaneous (4) - Routine Psychiatric Exam Present: normal affect Data - Labs CBC & Chem 7: 09/04/21 10:19 09/04/21 10:19 Labs: 07/30/21 11:30 Complete Blood Count Man Dif Stat Comprehensive Met. Panel Stat Ferritin Routine IRON PROFILE Routine Immunofixation Pnl, Serum Routine Lactate Dehydrogenase Routine TSH reflex Free T4 Routine Laboratory Last Values WBC 11.6 X10*3/uL (4.8-10.8) H 09/04/21 10:19 RBC 3.52 X10*6/uL (4.60-5.80) L 09/04/21 10:19 Hgb 11.5 g/dl (14.0-18.0) L 09/04/21 10:19 Hct 35.5 % (42.0-52.0) L 09/04/21 10:19 MCV 100.9 fL (80.0-98.0) H 09/04/21 10:19 MCH 32.7 pg (27.0-33.0) 09/04/21 10:19 MCHC 32.4 g/dl (31.0-36.0) 09/04/21 10:19 RDW 16.7 % (11.0-16.0) H 09/04/21 10:19 Plt Count 133 X10*3/uL (160-400) L 09/04/21 10:19 MPV 12.1 fL (9.4-12.4) 09/04/21 10:19 Absolute Nucleated RBC 0.000 X10*3/uL (0.0-0.012) 07/30/21 11:30 Nucleated RBC % (auto) 0.0 /100WBC (0.0-0.2) 07/30/21 11:30 Neutrophils % (Manual) 50 % (45-73) 07/30/21 11:30 Band Neutrophils % 1 % (3-5) L 07/30/21 11:30 Lymphocytes % (Manual) 19 % (20-40) L 07/30/21 11:30 Monocytes % (Manual) 28 % (2-11) H 07/30/21 11:30 Eosinophils % (Manual) 2 % (0-4) 07/30/21 11:30 Abs Neuts (Manual) 5.9 X10*3/uL (2.0-8.3) 07/30/21 11:30 Lymphocytes # (Manual) 2.2 X10*3/uL (1.2-4.9) 07/30/21 11:30 Monocytes # (Manual) 3.2 X10*3/uL (0.1-1.2) H 07/30/21 11:30 Eosinophils # (Manual) 0.2 X10*3/uL (0.0-0.4) 07/30/21 11:30 Platelet Estimate DECREASED (NORMAL) 07/30/21 11:30 Plt Morphology Comment NORMAL 07/30/21 11:30 RBC Morphology NOTED 07/30/21 11:30 Macrocytosis 1+ (5-14) /OIF 07/30/21 11:30 Sodium 138 mmol/L (135-145) 07/30/21 11:30 Potassium 4.5 mmol/L (3.3-5.1) 07/30/21 11:30 Chloride 105 mmol/L (96-108) 07/30/21 11:30 Carbon Dioxide 24 mmol/L (22-29) 07/30/21 11:30 Anion Gap 14 (12-20) 07/30/21 11:30 BUN 19 mg/dL (9-16) H 07/30/21 11:30 Creatinine 1.08 mg/dL (0.5-1.4) 07/30/21 11:30 Estim Creat Clear Calc 50.8 07/30/21 11:30 Estimated GFR > 60 07/30/21 11:30 Random Glucose 82 mg/dL (60-115) 07/30/21 11:30 Calcium 9.6 mg/dL (8.4-10.2) D 07/30/21 11:30 Iron 141 mcg/dL (45-160) 07/30/21 11:30 TIBC 326 mcg/dL (228-428) 07/30/21 11:30 % Saturation 43 % (15-50) 07/30/21 11:30 Unsat Iron Binding 185 ug/dL 07/30/21 11:30 Ferritin 209 ng/mL (20-250) 07/30/21 11:30 Total Bilirubin 0.8 mg/dL (0.0-1.0) 07/30/21 11:30 AST 21 U/L (5-37) 07/30/21 11:30 ALT 18 U/L (0-40) 07/30/21 11:30 Alkaline Phosphatase 65 U/L (39-117) 07/30/21 11:30 Lactate Dehydrogenase 245 U/L (118-273) 07/30/21 11:30 Total Protein 8.1 g/dL (6.5-8.0) H 07/30/21 11:30 Albumin 4.5 g/dL (3.5-5.0) 07/30/21 11:30 TSH 1.12 uIU/mL (0.32-4.0) 07/30/21 11:30 IgG Total 1281 mg/dL (600-1540) 07/30/21 11:30 IgA Total 156 mg/dL (70-320) 07/30/21 11:30 IgM 316 mg/dL (50-300) H 07/30/21 11:30 FABBY Interpretation SEE NOTE 07/30/21 11:30 Assessment and Plan Patient Active problem list reviewed?: Yes (1) Macrocytic anemia Status: Acute Assessment and plan: This is a pleasant 81-year-old gentleman with a history of macrocytic anemia. DIFFERENTIAL DIAGNOSIS: 1. B12 FOLATE DEFICIENCY: B12 LEVEL 1130. FOLATE: >20. 2. UNDERLYING MYELO INFILTRATIVE DISORDER: MDS can present with macrocytosis. Differential multiple myeloma. 3. THYROID DISEASE CAN GIVE RISE TO MACROCYTOSIS. 4. COPD: Can also cause increased red cell size. 5. MULTIFACTORIAL ANEMIA: With combined iron deficiency. Iron studies: 141/326/47/209. He has been taking half a iron tablet, every other day for the past month. I proceeded with further evaluation. Checked SIEP: no monoclonal spike. Checked LDH: 245. Checked TSH: 1.12 and T4. He is holding stable. His CBC reveals an elevated WBC count and thrombocytopenia. I am concerned about an underlying bone marrow disorder. PLAN: Will proceed with a bone marrow exam for further evaluation. This will be set up under MAC in the OR. His hemoglobin is quite stable for now. Will continue to monitor. He will return in 1 month for a follow-up visit. Thanks, CC: Joe Schultz - Time Spent With Patient Time Spent with Patient (in minutes): 25
[2021-09-04 11:17] LABS: SLIDE REVIEW VERIFIED
[2021-09-04 11:22] LABS: Alanine Aminotransferase 17 U/L (0-40); Albumin Level 4.5 g/dL (3.5-5.0); Alkaline Phosphatase 65 U/L (39-117); Anion Gap 13 (12-20); Aspartate Amino Transferase 18 U/L (5-37); Bilirubin Total 0.6 mg/dL (0.0-1.0); Blood Urea Nitrogen 25 mg/dL (9-16); Calcium 9.6 mg/dL (8.4-10.2); Carbon Dioxide 26 mmol/L (22-29); Chloride 102 mmol/L (96-108); Creatinine Clr Calc Pharmacy 47.4; Estimated Glomerular Filt Rate > 60; Glucose Random 75 mg/dL (60-115); Potassium 4.6 mmol/L (3.3-5.1); Sodium 136 mmol/L (135-145); Total Protein 7.7 g/dL (6.5-8.0)
[2021-09-04 11:43] LABS: Ferritin 175 ng/mL (20-250)
--- NOTE | 2021-09-04 17:09 | MHC.HEMONC ---
Pt presented for his sched hem f/u, VSS, labs drawn/reviewed, clinical summary updated. Pt reports he feels fine, continues taking 1/2 tab of ferrous sulfate every other day. Dr. Marks was in to meet w/ pt, noted his Hgb dropped from 12.2 to 11.5 in the past month, placed written order for Bone Marrow exam, to be scheduled the following day. Pt was d/c'd.
[2021-09-25 10:00] VITALS: BP 115/59
[2021-09-25 10:25] VITALS: BP 125/58; PULSE 64; RESP 18; TEMP 36.9; O2SAT 96; BMI 21.1
--- NOTE | 2021-09-25 11:02 | HO.HEMONCPA ---
NO PA REQUIRED FOR PROCRIT. DRUG COVERED UNDER MEDICARE PART B MEDICAL BENEFITS
--- NOTE | 2021-09-25 11:05 | P.PNHO_ITS ---
Medical Summary - Medical Summary Date of Service: 09/25/21 Chief complaint: Follow-up for: Macrocytic anemia. Medical Summary: DIAGNOSIS: MACROCYTIC ANEMIA. Interval History Interval history: Celestino Gage is a pleasant 81 year old gentleman, here for a follow-up visit. He had a bone marrow exam done, on 09/18. He is here to review the results. Pathology: Hypercellular, erythroid predominant marrow with diserythropoiesis. No increase in blasts or infiltrative process. Reduced storage iron. Flow cytometry is negative for a lymphoproliferative disorder or increased blasts. Cytogenetics and MDS fish panel are negative. He tells me he feels about the same. He is quite active so he does get tired later in the day. Denies fever nor chills. His appetite is okay. Denies weight loss. No headache no dizziness. He denies chest pain or trouble breathing. No cough no sputum. No abdominal pain nausea vomiting heartburn indigestion. Bowels are working. He denies diarrhea. No gross blood in the stools. Stool is dark from the iron. No dysuria or hematuria. 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 No focal weakness. He denies depression. No skin rashes nor pruritus. PAST MEDICAL HISTORY: He mentioned that his hemoglobin has been trickling down over the years. Review of his labs in the computer revealed: 06/16, CBC: WBC 10.4, HGB 11, HCT 34.2, MCV 103.6, PLT 135. Ferritin: 184. B12 1130. Folate >20. Previous blood count: 04/23/2021 hemoglobin 10.9. 10/15/2020: Hemoglobin 11.9. 01/12/19: Hemoglobin 13. He has been taking half a iron tablet, every other day for the past couple of months. FAMILY HISTORY: Denies any known heme Onc problems in the family. 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 He is . Has no children. He denies smoking. No alcohol. Review of Systems - Constitutional Reports no additional constitutional complaints - Eyes Reports no additional eye complaints - ENT Reports no additional ear, nose, mouth, and throat complaints - Cardiovascular Reports no additional cardiovascular complaints - Respiratory Reports no additional respiratory complaints - Gastrointestinal Reports no additional gastrointestinal complaints - Genitourinary Genitourinary: Reports no additional male genitourinary complaints - Musculoskeletal Reports no additional musculoskeletal complaints - Integumentary/Breasts Skin/Breast: Reports no additional skin complaints - Neurologic Reports no additional neurologic complaints - Psychiatric Reports no additional psychiatric complaints - Endocrine Reports no additional endocrine complaints - Hematologic/Lymphatic Reports no additional hematologic/lymphatic complaints - Allergic/Immunologic Reports no additional allergic/immunologic complaints [facility] Medical History: Medical History (Last Reviewed 09/18/21 @ 07:17 by Mar Puga MD) BPH (benign prostatic hyperplasia) COVID-19 vaccine series completed Elevated cholesterol H/O prostate cancer HTN (hypertension) Hypothyroid PVD (peripheral vascular disease) Functional capacity: independent ambulation Patient : No Surgical History: Surgical History (Last Updated 09/18/21 @ 07:21 by Deyanira Coffey RN) H/O colonoscopy History of carotid endarterectomy Hx of cataract extraction Hx of prostatectomy Hx of umbilical hernia repair Social History: Social History (Last Reviewed 09/18/21 @ 07:17 by Mar Puga MD) Living Situation History: Housing: House Are you a primary respiratory care instructor to a significant other at home: No Do you presently have visiting nurse or other home services: No Tobacco History: Patient Tobacco Use Status: Never used Tobacco Substance Use History: Use of substances other than those prescribed or required for medical reasons : No Advance Directives: Advance Directives Date on File: 09/18/21 Nutrition Assessment: Patient : No Occupation Assessmet: service: No Current occupational status: retired Oncology Screenings - ECOG Performance Status ECOG Performance Status: 0 Home Medications and Allergies Current Medications: Current Medications Epoetin Davide (Epoetin Davide 20,000 Unit/Ml Vial) 40,000 unit SUBCUT ONCE ONE Stop: 09/25/21 11:04 Home Medications Medication Instructions Recorded Confirmed Type ascorbic acid (vitamin C) 1,000 mg 1 g PO DAILY 07/30/21 09/25/21 History tablet (Vitamin C) aspirin 325 mg capsule 325 mg PO DAILY 07/30/21 09/25/21 History cholecalciferol (vitamin D3) 50 50 mcg PO DAILY 07/30/21 09/25/21 History mcg (2,000 unit) capsule (Vitamin D3) cyanocobalamin (vitamin B-12) 1,000 mcg PO DAILY 07/30/21 09/25/21 History 1,000 mcg capsule ferrous sulfate 325 mg (65 mg 32 mg PO Q OTHER DAY 07/30/21 09/25/21 History iron) tablet multivitamin 1 tab PO DAILY 07/30/21 09/25/21 History Allergies Allergy/AdvReac Type Severity Reaction Status Date / Time No Known Allergies Allergy Verified 09/18/21 07:06 [No Known Allergies*] Exam Vital signs: Vital Signs Temp 98.4 F 09/25/21 10:25 Pulse 64 09/25/21 10:25 Resp 18 09/25/21 10:25 BP 125/58 L 09/25/21 10:25 Pulse Ox 96 09/25/21 10:25 Intake & Output 09/24/21 09/25/21 09/25/21 18:59 06:59 18:59 Other: Weight 64.9 kg [place] Weight in Grams [id number] Weight 64.9 kg BMI result Body Mass Index 21.1 - Constitutional Present: no acute distress - Routine HEENT Exam Head: Present: normal inspection Eye: Present: normal appearance ENT: Present: mucous membranes moist - Routine Neck Exam Present: full ROM - Routine Respiratory Exam Present: CTAB - Routine Cardiovascular Exam Cardiovascular: Present: RRR, S1, S2 - Routine Abdominal Exam Present: nontender - Routine Extremities Exam Present: nontender - Routine Back/Spine/Pelvis Exam Back/Spine: Present: full ROM - Routine Skin Exam Present: intact, normal turgor - Routine Neurological Exam Present: alert, oriented X3 - Detailed Neurological Exam: Coma Scale Eye Opening: Spontaneous (4) - Routine Psychiatric Exam Present: normal affect Data - Labs CBC & Chem 7: 09/04/21 10:19 09/04/21 10:19 Assessment and Plan Patient Active problem list reviewed?: Yes (1) Macrocytic anemia Status: Acute Assessment and plan: This is a pleasant 81-year-old gentleman with a history of macrocytic anemia. DIFFERENTIAL DIAGNOSIS: 1. B12 FOLATE DEFICIENCY: B12 LEVEL 1130. FOLATE: >20. 2. UNDERLYING MYELO INFILTRATIVE DISORDER: MDS can present with macrocytosis. Differential multiple myeloma. 3. THYROID DISEASE CAN GIVE RISE TO MACROCYTOSIS. 4. COPD: Can also cause increased red cell size. 5. MULTIFACTORIAL ANEMIA: With combined iron deficiency. Iron studies: 141/326/47/209. He has been taking half a iron tablet, every other day for the past month. I proceeded with further evaluation. Checked SIEP: no monoclonal spike. Checked LDH: 245. Checked TSH: 1.12 and T4. He is holding stable. His CBC reveals an elevated WBC count and thrombocytopenia. I was concerned about an underlying bone marrow disorder. He had a bone marrow exam done, on 09/18. He is here to review the results. Pathology: Hypercellular, erythroid predominant marrow with diserythropoiesis. No increase in blasts or infiltrative process. Reduced storage iron. Flow cytometry is negative for a lymphoproliferative disorder or increased blasts. Cytogenetics and MDS fish panel are negative. Review of his labs from 09/18, revealed: WBC 12.4, Hemoglobin of 9.8/29.8, PLT 136. 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 Patient has anemia of chronic disease related to stage III CKD. 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 Procrit would help with both the disorders. Details of the regimen including elevated blood pressure, elevated hemoglobin, headache dizziness, thrombosis were all addressed with him. He understands and willing to proceed. PLAN: He will receive a shot of Procrit today. He will return every 2 weeks to check his labs and for possible Procrit injection. Hopefully that will help his hemoglobin and energy level. He will return in 1 month for a follow-up visit. Thanks, CC: Joe Schultz - Time Spent With Patient Time Spent with Patient (in minutes): 35
[2021-09-25] MEDS: Epoetin Alfa 40,000 UNIT/ML VIAL 40000 UNIT SUBCUT (11:24)
--- NOTE | 2021-09-25 13:48 | MHC.HEMONC ---
Patient present for follow up with Dr Marks, his was present. Vital signs done and medications reviewed. Provided information on Procrit to patient. Procrit administered in [place], patient tolerated it well. Next injection scheduled for 10/09/21 and follow up scheduled for 10/24/21. Patient departed the unit with his .
[2021-10-09 10:32] LABS: Basophils Percent Auto 0.1 % (0-2); Eosinophils Absolute Auto 0.2 X10*3/uL (0.0-0.4); Eosinophils Percent Auto 1.3 % (0-4); Hemoglobin 12.2 g/dl (14.0-18.0); Imm Gran Abs Auto 0.24 X10*3/uL (0.00-0.03); Imm Gran Pct Auto 1.6 % (0.0-0.4); Lymphocytes Absolute Auto 1.9 X10*3/uL (1.2-4.9); Lymphocytes Percent Auto 12.6 % (20-40); MANUAL DIFF FLAG SCAN; Mean Corpuscular Hemoglobin 33.6 pg (27.0-33.0); Mean Corpuscular Volume 101.9 fL (80.0-98.0); Mean Platelet Volume 11.3 fL (9.4-12.4); Monocytes Absolute Auto 4.9 X10*3/uL (0.1-1.2); Monocytes Percent Auto 32.3 % (2-11); NRBC Pct Auto 0.1 /100WBC (0.0-0.2); Neutrophils Absolute Auto 7.8 x10*3/uL (2.0-8.3); Neutrophils Percent Auto 52.1 % (45-73); Platelet Count 146 X10*3/uL (160-400); Red Blood Count 3.63 X10*6/uL (4.60-5.80); Red Cell Distribution Width 18.5 % (11.0-16.0); SCAN SMEAR FLAG 1; White Blood Count 15.1 X10*3/uL (4.8-10.8)
[2021-10-09 10:59] LABS: Alanine Aminotransferase 13 U/L (0-40); Albumin Level 4.4 g/dL (3.5-5.0); Alkaline Phosphatase 69 U/L (39-117); Anion Gap 14 (12-20); Aspartate Amino Transferase 18 U/L (5-37); Bilirubin Total 0.9 mg/dL (0.0-1.0); Blood Urea Nitrogen 26 mg/dL (9-16); Calcium 9.5 mg/dL (8.4-10.2); Carbon Dioxide 26 mmol/L (22-29); Chloride 103 mmol/L (96-108); Creatinine Clr Calc Pharmacy 44.7; Estimated Glomerular Filt Rate 57; Glucose Random 95 mg/dL (60-115); Potassium 4.6 mmol/L (3.3-5.1); Sodium 138 mmol/L (135-145); Total Protein 7.7 g/dL (6.5-8.0)
[2021-10-09 11:10] LABS: SLIDE REVIEW VERIFIED
--- NOTE | 2021-10-09 15:49 | MHC.HEMONC ---
Patient arrived with his for Procrit injection. Labs drawn by phlebotomy and reviewed, Hgb 12.2, no Procrit today. Next Procrit and follow up with Dr Marks scheduled for 11/10/21. Patient departed the unit with his .
[2021-11-10 09:33] VITALS: BP 119/58; PULSE 74; RESP 14; TEMP 36.5; O2SAT 98; BMI 21.1
--- NOTE | 2021-11-10 09:43 | P.PNHO_ITS ---
Medical Summary - Medical Summary Date of Service: 11/10/21 Chief complaint: Follow-up for: Macrocytic anemia. Medical Summary: DIAGNOSIS: MACROCYTIC ANEMIA. ACD. Dyserythropoeisis. CURRENT THERAPY: Procrit received 09/25. Interval History Interval history: Celestino Gage is a pleasant 81 year old gentleman, here for a follow-up visit. He tells me he is feeling very well. He busy lifestyle. They have a dog that they love who keeps them active. They are taking him for walks. He denies easy fatigability. Denies fever nor chills. His appetite is okay. Denies weight loss. No headache no dizziness. He denies chest pain or trouble breathing. No cough no sputum. No abdominal pain nausea vomiting heartburn indigestion. Bowels are working. He denies diarrhea. No gross blood in the stools. Bowels are dark from the iron. No dysuria or hematuria. 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 No focal weakness. He denies depression. No skin rashes nor pruritus. Previous history: He had a bone marrow exam done, on 09/18. The results: Pathology: Hypercellular, erythroid predominant marrow with diserythropoiesis. No increase in blasts or infiltrative process. Reduced storage iron. Flow cytometry is negative for a lymphoproliferative disorder or increased blasts. Cytogenetics and MDS fish panel are negative. PAST MEDICAL HISTORY: He mentioned that his hemoglobin has been trickling down over the years. Review of his labs in the computer revealed: 06/16, CBC: WBC 10.4, HGB 11, HCT 34.2, MCV 103.6, PLT 135. Ferritin: 184. B12 1130. Folate >20. Previous blood count: 04/23/2021 hemoglobin 10.9. 10/15/2020: Hemoglobin 11.9. 01/12/19: Hemoglobin 13. He has been taking half a iron tablet, every other day for the past couple of months. FAMILY HISTORY: Denies any known heme Onc problems in the family. 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 He is . Has no children. He denies smoking. No alcohol. Review of Systems - Constitutional Reports no additional constitutional complaints - Eyes Reports no additional eye complaints - ENT Reports no additional ear, nose, mouth, and throat complaints - Cardiovascular Reports no additional cardiovascular complaints - Respiratory Reports no additional respiratory complaints - Gastrointestinal Reports no additional gastrointestinal complaints - Genitourinary Genitourinary: Reports no additional male genitourinary complaints - Musculoskeletal Reports no additional musculoskeletal complaints - Integumentary/Breasts Skin/Breast: Reports no additional skin complaints - Neurologic Reports no additional neurologic complaints - Psychiatric Reports no additional psychiatric complaints - Endocrine Reports no additional endocrine complaints - Hematologic/Lymphatic Reports no additional hematologic/lymphatic complaints - Allergic/Immunologic Reports no additional allergic/immunologic complaints [facility] Medical History: Medical History (Last Reviewed 11/10/21 @ 09:36 by Alma Ortiz CMA) BPH (benign prostatic hyperplasia) COVID-19 vaccine series completed Elevated cholesterol H/O prostate cancer HTN (hypertension) Hypothyroid PVD (peripheral vascular disease) Functional capacity: independent ambulation Patient : No Surgical History: Surgical History (Last Reviewed 11/10/21 @ 09:36 by Alma Ortiz CMA) H/O colonoscopy History of carotid endarterectomy Hx of cataract extraction Hx of prostatectomy Hx of umbilical hernia repair Social History: Social History (Last Updated 11/10/21 @ 09:38 by Alma Ortiz CMA) Living Situation History: Household Members: Spouse Housing: House Are you a primary medicare insurance specialist to a significant other at home: No Do you presently have visiting nurse or other home services: No Alcohol History Details: 1. How often do you have a drink containing alcohol?: a. Never Tobacco History: Patient Tobacco Use Status: Never used Tobacco Substance Use History: Use of substances other than those prescribed or required for medical reasons : No Domestic Abuse History: Have you been hit, kicked, punched, or otherwise hurt by someone within the past year? If so, by whom?: No Do you feel safe in your current relationship?: Yes Advance Directives: Advance Directives Date on File: 09/18/21 Homicidal Assessment: Do you have thoughts of harming others: None Do you have a plan to hurt others: No Plan Do you have the means to hurt others: No Nutrition Assessment: Recently lost weight without trying: No Patient : No Occupation Assessmet: service: No Current occupational status: retired Oncology Screenings - ECOG Performance Status ECOG Performance Status: 0 Home Medications and Allergies Home Medications Medication Instructions Recorded Confirmed Type ascorbic acid (vitamin C) 1,000 mg 1 g PO DAILY 07/30/21 11/10/21 History tablet (Vitamin C) aspirin 325 mg capsule 325 mg PO DAILY 07/30/21 11/10/21 History cholecalciferol (vitamin D3) 50 50 mcg PO DAILY 07/30/21 11/10/21 History mcg (2,000 unit) capsule (Vitamin D3) cyanocobalamin (vitamin B-12) 1,000 mcg PO DAILY 07/30/21 11/10/21 History 1,000 mcg capsule ferrous sulfate 325 mg (65 mg 32 mg PO Q OTHER DAY 07/30/21 11/10/21 History iron) tablet multivitamin 1 tab PO DAILY 07/30/21 11/10/21 History Allergies Allergy/AdvReac Type Severity Reaction Status Date / Time No Known Allergies Allergy Verified 11/10/21 09:38 [No Known Allergies*] Exam Vital signs: Vital Signs Temp 97.7 F 11/10/21 09:33 Pulse 74 11/10/21 09:33 Resp 14 11/10/21 09:33 BP 119/58 L 11/10/21 09:33 Pulse Ox 98 11/10/21 09:33 Intake & Output 11/09/21 11/10/21 11/10/21 18:59 06:59 18:59 Other: Weight 65 kg Weight in Grams 25206 Weight 65 kg BMI result Body Mass Index 21.1 - Constitutional Present: no acute distress - Routine HEENT Exam Head: Present: normal inspection Eye: Present: normal appearance ENT: Present: mucous membranes moist - Routine Neck Exam Present: full ROM - Routine Respiratory Exam Present: CTAB - Routine Cardiovascular Exam Cardiovascular: Present: RRR, S1, S2 - Routine Abdominal Exam Present: nontender - Routine Extremities Exam Present: nontender - Routine Back/Spine/Pelvis Exam Back/Spine: Present: full ROM - Routine Skin Exam Present: intact, normal turgor - Routine Neurological Exam Present: alert, oriented X3 - Detailed Neurological Exam: Coma Scale Eye Opening: Spontaneous (4) - Routine Psychiatric Exam Present: normal affect Data - Labs CBC & Chem 7: 11/10/21 09:28 11/10/21 Unknown Assessment and Plan Patient Active problem list reviewed?: Yes (1) Macrocytic anemia Status: Acute Assessment and plan: This is a pleasant 81-year-old gentleman with a history of macrocytic anemia. DIFFERENTIAL DIAGNOSIS: 1. B12 FOLATE DEFICIENCY: B12 LEVEL 1130. FOLATE: >20. 2. UNDERLYING MYELO INFILTRATIVE DISORDER: MDS can present with macrocytosis. Differential multiple myeloma. 3. THYROID DISEASE CAN GIVE RISE TO MACROCYTOSIS. 4. COPD: Can also cause increased red cell size. 5. MULTIFACTORIAL ANEMIA: With combined iron deficiency. Iron studies: 141/326/47/209. He has been taking half a iron tablet, every other day for the past month. I proceeded with further evaluation. Checked SIEP: no monoclonal spike. Checked LDH: 245. Checked TSH: 1.12 and T4. He is holding stable. His CBC reveals an elevated WBC count and thrombocytopenia. I was concerned about an underlying bone marrow disorder. He had a bone marrow exam done, on 09/18. He is here to review the results. Pathology: Hypercellular, erythroid predominant marrow with diserythropoiesis. No increase in blasts or infiltrative process. Reduced storage iron. Flow cytometry is negative for a lymphoproliferative disorder or increased blasts. Cytogenetics and MDS fish panel are negative. Review of his labs from 09/18, revealed: WBC 12.4, Hemoglobin of 9.8/29.8, PLT 136. BUN 25, AGRONOMY LOCATION MANAGER 1.17, creatinine clearance 47.4. Patient has anemia of chronic disease related to stage III CKD. 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 Procrit would help with both the disorders. Details of the regimen including elevated blood pressure, elevated hemoglobin, headache dizziness, thrombosis were all addressed with him. He understands and willing to proceed. He received a shot of Procrit on 09/25. Subsequently hemoglobin went up to above 12. His hemoglobin in October was 12.2. Today's hemoglobin: 12.0. This is encouraging. He has good energy level. PLAN: He will return monthly to check his labs and for possible Procrit injection. Hopefully that will help his hemoglobin and energy level. He will return in 1 month for a follow-up visit. Thanks, CC: Joe Schultz - Time Spent With Patient Time Spent with Patient (in minutes): 25
[2021-11-10 09:59] LABS: Imm Gran Abs Auto 0.18 X10*3/uL (0.00-0.03); Imm Gran Pct Auto 1.1 % (0.0-0.4); MANUAL DIFF FLAG SCAN; Mean Corpuscular Volume 103.3 fL (80.0-98.0); PLT CLUMP 1; Red Cell Distribution Width 17.4 % (11.0-16.0); SCAN SMEAR FLAG 1
[2021-11-10 10:01] LABS: Basophils Percent Auto 0.2 % (0-2); Eosinophils Absolute Auto 0.3 X10*3/uL (0.0-0.4); Eosinophils Percent Auto 1.7 % (0-4); Hematocrit 37.3 % (42.0-52.0); Lymphocytes Absolute Auto 1.9 X10*3/uL (1.2-4.9); Mean Corpuscular HGB Conc 32.2 g/dl (31.0-36.0); Mean Corpuscular Hemoglobin 33.2 pg (27.0-33.0); Mean Platelet Volume 11.9 fL (9.4-12.4); Monocytes Absolute Auto 5.4 X10*3/uL (0.1-1.2); Monocytes Percent Auto 33.1 % (2-11); Neutrophils Absolute Auto 8.4 x10*3/uL (2.0-8.3); Neutrophils Percent Auto 51.9 % (45-73); Platelet Count 144 X10*3/uL (160-400); Red Blood Count 3.61 X10*6/uL (4.60-5.80); White Blood Count 16.2 X10*3/uL (4.8-10.8)
[2021-11-10 10:32] LABS: SLIDE REVIEW VERIFIED
[2021-11-10 10:38] LABS: Alanine Aminotransferase 18 U/L (0-40); Albumin Level 4.5 g/dL (3.5-5.0); Alkaline Phosphatase 73 U/L (39-117); Anion Gap 14 (12-20); Aspartate Amino Transferase 18 U/L (5-37); Bilirubin Total 0.7 mg/dL (0.0-1.0); Blood Urea Nitrogen 25 mg/dL (9-16); Calcium 9.5 mg/dL (8.4-10.2); Carbon Dioxide 27 mmol/L (22-29); Chloride 104 mmol/L (96-108); Estimated Glomerular Filt Rate > 60; Glucose Random 64 mg/dL (60-115); Potassium 4.2 mmol/L (3.3-5.1); Sodium 141 mmol/L (135-145); Total Protein 8.1 g/dL (6.5-8.0)
[2021-11-10 10:58] LABS: TSH reflex Free T4 0.25 uIU/mL (0.32-4.0)
[2021-11-10 11:39] LABS: Free T4 (Free Thyroxine) 1.37 ng/dL (0.71-1.85)
--- NOTE | 2021-11-10 13:33 | MHC.HEMONCMA ---
Pt was in for follow up. Clinical summary reviewed and updated, VSS. Labs were drawn. Pt to return in 1 month.
--- NOTE | 2021-11-10 14:26 | MHC.HEMONC ---
Pt was here for sched monthly procrit injection and Hem f/u appt, labs drawn, Hgb resulted at 12.0, Dr. Marks was informed. Pt had his next procrit injection booked in 1 month, on 12/12/21, along w/ next f/u.
--- NOTE | 2021-12-12 11:01 | P.PNHO_ITS ---
Medical Summary - Medical Summary Date of Service: 12/12/21 Chief complaint: follow-up for: MDS. Dyserythropoetic anemia. ACD. Medical Summary: DIAGNOSIS: MACROCYTIC ANEMIA. ACD. Dyserythropoeisis. CURRENT THERAPY: Procrit received 09/25/21. Interval History Interval history: Celestino Gage is a pleasant 81 year old gentleman, here for a follow-up visit. He tells me he is feeling very well. His blood pressure has been well controlled. He is off the lisinopril now. His blood pressure is normal now. His energy level has been normal. He denies any complaints. Denies fever nor chills. His appetite is good. He eats 3 sq meals a day. Denies weight loss. No headache no dizziness. He denies chest pain or trouble breathing. No cough no sputum. No abdominal pain nausea vomiting heartburn indigestion. Bowels are working. He denies diarrhea. No gross blood in the stools. Bowels are dark from the iron. No dysuria or hematuria. 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 No focal weakness. He denies depression. No skin rashes nor pruritus. He busy lifestyle. They have a dog that they love who keeps them active. They are taking him for walks. Previous history: He had a bone marrow exam done, on 09/18. The results: Pathology: Hypercellular, erythroid predominant marrow with diserythropoiesis. No increase in blasts or infiltrative process. Reduced storage iron. Flow cytometry is negative for a lymphoproliferative disorder or increased blasts. Cytogenetics and MDS fish panel are negative. PAST MEDICAL HISTORY: He mentioned that his hemoglobin has been trickling down over the years. Review of his labs in the computer revealed: 06/16, CBC: WBC 10.4, HGB 11, HCT 34.2, MCV 103.6, PLT 135. Ferritin: 184. B12 1130. Folate >20. Previous blood count: 04/23/2021 hemoglobin 10.9. 10/15/2020: Hemoglobin 11.9. 01/12/19: Hemoglobin 13. He has been taking half a iron tablet, every other day for the past couple of months. FAMILY HISTORY: Denies any known heme Onc problems in the family. 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 He is . Has no children. He denies smoking. No alcohol. Review of Systems - Constitutional Reports no additional constitutional complaints, Denies weakness, Denies weight loss - Eyes Reports no additional eye complaints - ENT Reports no additional ear, nose, mouth, and throat complaints - Cardiovascular Reports no additional cardiovascular complaints - Respiratory Reports no additional respiratory complaints - Gastrointestinal Reports no additional gastrointestinal complaints - Genitourinary Genitourinary: Reports no additional male genitourinary complaints - Musculoskeletal Reports no additional musculoskeletal complaints - Integumentary/Breasts Skin/Breast: Reports no additional skin complaints - Neurologic Reports no additional neurologic complaints - Psychiatric Reports no additional psychiatric complaints - Endocrine Reports no additional endocrine complaints - Hematologic/Lymphatic Reports no additional hematologic/lymphatic complaints - Allergic/Immunologic Reports no additional allergic/immunologic complaints [facility] Medical History: Medical History (Last Reviewed 12/12/21 @ 11:52 by Alma Ortiz CMA) BPH (benign prostatic hyperplasia) COVID-19 vaccine series completed Elevated cholesterol H/O prostate cancer HTN (hypertension) Hypothyroid PVD (peripheral vascular disease) Functional capacity: independent ambulation Patient : No Surgical History: Surgical History (Last Reviewed 12/12/21 @ 11:52 by Alma Ortiz CMA) H/O colonoscopy History of carotid endarterectomy Hx of cataract extraction Hx of prostatectomy Hx of umbilical hernia repair Social History: Social History (Last Reviewed 12/12/21 @ 11:52 by Alma Ortiz CMA) Living Situation History: Household Members: Spouse Housing: House Are you a primary home care manager to a significant other at home: No Do you presently have visiting nurse or other home services: No Alcohol History Details: 1. How often do you have a drink containing alcohol?: a. Never Tobacco History: Patient Tobacco Use Status: Never used Tobacco Substance Use History: Use of substances other than those prescribed or required for medical reasons : No Domestic Abuse History: Have you been hit, kicked, punched, or otherwise hurt by someone within the past year? If so, by whom?: No Do you feel safe in your current relationship?: Yes Advance Directives: Advance Directives Date on File: 09/18/21 Homicidal Assessment: Do you have thoughts of harming others: None Do you have a plan to hurt others: No Plan Do you have the means to hurt others: No Nutrition Assessment: Recently lost weight without trying: No Patient : No Occupation Assessmet: service: No Current occupational status: retired Oncology Screenings - ECOG Performance Status ECOG Performance Status: 0 Home Medications and Allergies Home Medications Medication Instructions Recorded Confirmed Type ascorbic acid (vitamin C) 1,000 mg 1 g PO DAILY 07/30/21 12/12/21 History tablet (Vitamin C) aspirin 325 mg capsule 325 mg PO DAILY 07/30/21 12/12/21 History cholecalciferol (vitamin D3) 50 50 mcg PO DAILY 07/30/21 12/12/21 History mcg (2,000 unit) capsule (Vitamin D3) cyanocobalamin (vitamin B-12) 1,000 mcg PO DAILY 07/30/21 12/12/21 History 1,000 mcg capsule ferrous sulfate 325 mg (65 mg 32 mg PO Q OTHER DAY 07/30/21 12/12/21 History iron) tablet multivitamin 1 tab PO DAILY 07/30/21 12/12/21 History Allergies Allergy/AdvReac Type Severity Reaction Status Date / Time No Known Allergies Allergy Verified 12/12/21 11:53 [No Known Allergies*] Exam Vital signs: Vital Signs Temp 97.7 F 11/10/21 09:33 Pulse 74 11/10/21 09:33 Resp 14 11/10/21 09:33 BP 119/58 L 11/10/21 09:33 Pulse Ox 98 11/10/21 09:33 Weight 65 kg BMI result Body Mass Index 21.1 - Constitutional Present: no acute distress - Routine HEENT Exam Head: Present: normal inspection Eye: Present: normal appearance ENT: Present: mucous membranes moist - Routine Neck Exam Present: full ROM - Routine Respiratory Exam Present: CTAB - Routine Cardiovascular Exam Cardiovascular: Present: RRR, S1, S2 - Routine Abdominal Exam Present: nontender - Routine Extremities Exam Present: nontender - Routine Back/Spine/Pelvis Exam Back/Spine: Present: full ROM - Routine Skin Exam Present: intact, normal turgor - Routine Neurological Exam Present: alert, oriented X3 - Detailed Neurological Exam: Coma Scale Eye Opening: Spontaneous (4) - Routine Psychiatric Exam Present: normal affect Data - Labs CBC & Chem 7: 12/12/21 11:17 12/12/21 11:17 Assessment and Plan Patient Active problem list reviewed?: Yes (1) Macrocytic anemia Status: Acute Assessment and plan: This is a pleasant 81-year-old gentleman with a history of macrocytic anemia. DIFFERENTIAL DIAGNOSIS: 1. B12 FOLATE DEFICIENCY: B12 LEVEL 1130. FOLATE: >20. 2. UNDERLYING MYELO INFILTRATIVE DISORDER: MDS can present with macrocytosis. Differential multiple myeloma. 3. THYROID DISEASE CAN GIVE RISE TO MACROCYTOSIS. 4. COPD: Can also cause increased red cell size. 5. MULTIFACTORIAL ANEMIA: With combined iron deficiency. Iron studies: 141/326/47/209. He has been taking half a iron tablet, every other day for the past month. I proceeded with further evaluation. Checked SIEP: no monoclonal spike. Checked LDH: 245. Checked TSH: 1.12 and T4. He is holding stable. His CBC reveals an elevated WBC count and thrombocytopenia. I was concerned about an underlying bone marrow disorder. He had a bone marrow exam done, on 09/18. He is here to review the results. Pathology: Hypercellular, erythroid predominant marrow with diserythropoiesis. No increase in blasts or infiltrative process. Reduced storage iron. Flow cytometry is negative for a lymphoproliferative disorder or increased blasts. Cytogenetics and MDS fish panel are negative. Review of his labs from 09/18, revealed: WBC 12.4, Hemoglobin of 9.8/29.8, PLT 136. BUN 25, TANK CREWMEMBER 1.17, creatinine clearance 47.4. Patient has anemia of chronic disease related to stage III CKD. 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 Procrit would help with both the disorders. Details of the regimen including elevated blood pressure, elevated hemoglobin, headache dizziness, thrombosis were all addressed with him. He understood and was willing to proceed. He received a shot of Procrit on 09/25. Subsequently hemoglobin went up to above 12. His hemoglobin in October was 12.2. On 11/10 it was 12.0. Today's hemoglobin: 10.8. His Iron studies: 62/295/21/174. His energy level is rather low. PLAN: He will get dose of Procrit today. He will now return monthly to check his labs, for possible Procrit injection. Hopefully that will help his hemoglobin and energy level. He will return in 3 months for a follow-up visit. Thanks, CC: Joe Schultz - Time Spent With Patient Time Spent with Patient (in minutes): 25
[2021-12-12 11:49] VITALS: BP 117/58; PULSE 66; RESP 14; TEMP 36.6; O2SAT 96; BMI 21.1
[2021-12-12 12:09] LABS: Hematocrit 33.4 % (42.0-52.0); Hemoglobin 10.8 g/dl (14.0-18.0); Mean Corpuscular HGB Conc 32.3 g/dl (31.0-36.0); Mean Corpuscular Hemoglobin 32.9 pg (27.0-33.0); Mean Corpuscular Volume 101.8 fL (80.0-98.0); Mean Platelet Volume 12.3 fL (9.4-12.4); NRBC Pct Auto 0.1 /100WBC (0.0-0.2); Platelet Count 121 X10*3/uL (160-400); Red Blood Count 3.28 X10*6/uL (4.60-5.80); Red Cell Distribution Width 17.9 % (11.0-16.0); White Blood Count 14.6 X10*3/uL (4.8-10.8)
[2021-12-12 12:34] LABS: Alanine Aminotransferase 15 U/L (0-40); Albumin Level 4.3 g/dL (3.5-5.0); Alkaline Phosphatase 70 U/L (39-117); Anion Gap 12 (12-20); Aspartate Amino Transferase 20 U/L (5-37); Bilirubin Total 0.7 mg/dL (0.0-1.0); Blood Urea Nitrogen 18 mg/dL (9-16); Calcium 9.4 mg/dL (8.4-10.2); Carbon Dioxide 26 mmol/L (22-29); Chloride 107 mmol/L (96-108); Creatinine Clr Calc Pharmacy 49.9; Estimated Glomerular Filt Rate > 60; Glucose Random 50 mg/dL (60-115); Iron 62 mcg/dL (45-160); Percent Iron Saturation 21 % (15-50); Potassium 4.1 mmol/L (3.3-5.1); Sodium 141 mmol/L (135-145); Total Iron Binding Capacity 295 mcg/dL (228-428); Total Protein 7.6 g/dL (6.5-8.0); Unsaturated Iron Binding 233 ug/dL
[2021-12-12 12:35] LABS: SLIDE REVIEW MANUAL DIFF
[2021-12-12] MEDS: Epoetin Alfa 40,000 UNIT/ML VIAL 40000 UNIT SUBCUT (12:39)
[2021-12-12 12:46] LABS: Band Neutrophils Percent 4 % (3-5); Basophils Abs Manual 0.1 X10*3/uL (0.0-0.2); Basophils Percent Manual 1 % (0-2); Eosinophils Absolute Manual 0.6 X10*3/uL (0.0-0.4); Eosinophils Percent Manual 4 % (0-4); Lymphocytes Absolute Manual 1.2 X10*3/uL (1.2-4.9); Lymphocytes Percent Manual 8 % (20-40); Monocytes Absolute Manual 4.4 X10*3/uL (0.1-1.2); Monocytes Percent Manual 30 % (2-11); Neutrophils Absolute Manual 8.3 X10*3/uL (2.0-8.3); Neutrophils Percent Manual 53 % (45-73)
[2021-12-12 12:48] LABS: RBC Morphology NOTED
[2021-12-12 12:49] LABS: Macrocytosis 1+ (5-14) /OIF
[2021-12-12 12:50] LABS: Microcytosis 1+ (5-14) /OIF
--- NOTE | 2021-12-12 12:50 | MHC.HEMONC ---
Pt here for lab draw, procrit injection and follow up with Dr Marks. Labs drawn by phlebotomistt-specimen to lab. Critical glucose recieved of 50-reported to Dr Marks. Snack given. H & H 10.8/33.[address] Marks. Procrit given as ordered in left arm-tolerated well. Next appointment scheduled for next month. Provider into see pt. Discharge packet given-follow up with provider in 3 months. Discharge packet given
[2021-12-12 12:52] LABS: Large Platelet PRESENT; Platelet Estimate SLIGHTLY DECREASED (NORMAL); Platelet Morphology Comment NOTED
[2021-12-12 12:53] LABS: Ferritin 174 ng/mL (20-250)
[2021-12-12 12:55] LABS: Basophilic Stippling 1+ (0-2) /OIF; Pappenheimer Bodies PRESENT; Polychromasia 1+ (0-2) /OIF
--- NOTE | 2021-12-12 13:47 | MHC.HEMONCMA ---
Pt was in for follow up. Clinical summary reviewed and updated, VSS. Labs were drawn. Pt to return in 3 months.
[2022-01-12 11:21] LABS: Basophils Percent Auto 0.2 % (0-2); Eosinophils Absolute Auto 0.2 X10*3/uL (0.0-0.4); Eosinophils Percent Auto 1.3 % (0-4); Hematocrit 36.6 % (42.0-52.0); Hemoglobin 11.9 g/dl (14.0-18.0); Imm Gran Abs Auto 0.32 X10*3/uL (0.00-0.03); Lymphocytes Absolute Auto 1.8 X10*3/uL (1.2-4.9); Lymphocytes Percent Auto 11.2 % (20-40); MANUAL DIFF FLAG SCAN; Mean Corpuscular HGB Conc 32.5 g/dl (31.0-36.0); Mean Corpuscular Hemoglobin 33.1 pg (27.0-33.0); Mean Corpuscular Volume 101.9 fL (80.0-98.0); Mean Platelet Volume 11.7 fL (9.4-12.4); Monocytes Absolute Auto 6.1 X10*3/uL (0.1-1.2); Monocytes Percent Auto 38.4 % (2-11); Neutrophils Absolute Auto 7.4 x10*3/uL (2.0-8.3); Neutrophils Percent Auto 46.9 % (45-73); Platelet Count 148 X10*3/uL (160-400); Red Blood Count 3.59 X10*6/uL (4.60-5.80); Red Cell Distribution Width 17.6 % (11.0-16.0); SCAN SMEAR FLAG 1; White Blood Count 15.8 X10*3/uL (4.8-10.8)
[2022-01-12 11:33] LABS: Alanine Aminotransferase 18 U/L (0-40); Albumin Level 4.4 g/dL (3.5-5.0); Alkaline Phosphatase 74 U/L (39-117); Anion Gap 13 (12-20); Aspartate Amino Transferase 20 U/L (5-37); Bilirubin Total 0.8 mg/dL (0.0-1.0); Blood Urea Nitrogen 19 mg/dL (9-16); Calcium 9.3 mg/dL (8.4-10.2); Carbon Dioxide 26 mmol/L (22-29); Chloride 106 mmol/L (96-108); Creatinine Clr Calc Pharmacy 49.5; Estimated Glomerular Filt Rate > 60; Glucose Random 70 mg/dL (60-115); Potassium 4.4 mmol/L (3.3-5.1); Sodium 141 mmol/L (135-145); Total Protein 7.7 g/dL (6.5-8.0)
[2022-01-12 13:42] LABS: SLIDE REVIEW VERIFIED
--- NOTE | 2022-01-12 16:21 | MHC.HEMONC ---
Pt here for monthly procrit injection. Labs drawn by tan room supervisor-specimen to lab. Hgb 11.9-no procrit indicated. Pt notified and discharged home with next appointment in one month
[2022-02-16 11:14] LABS: Basophils Percent Auto 0.2 % (0-2); Eosinophils Absolute Auto 0.3 X10*3/uL (0.0-0.4); Eosinophils Percent Auto 2.2 % (0-4); Hematocrit 37.8 % (42.0-52.0); Hemoglobin 12.1 g/dl (14.0-18.0); Imm Gran Abs Auto 0.13 X10*3/uL (0.00-0.03); Imm Gran Pct Auto 1.1 % (0.0-0.4); Lymphocytes Absolute Auto 1.9 X10*3/uL (1.2-4.9); Lymphocytes Percent Auto 16.1 % (20-40); MANUAL DIFF FLAG SCAN; Mean Corpuscular Hemoglobin 32.3 pg (27.0-33.0); Mean Corpuscular Volume 100.8 fL (80.0-98.0); Mean Platelet Volume 11.9 fL (9.4-12.4); Monocytes Absolute Auto 3.9 X10*3/uL (0.1-1.2); Monocytes Percent Auto 33.4 % (2-11); Neutrophils Absolute Auto 5.4 x10*3/uL (2.0-8.3); Platelet Count 156 X10*3/uL (160-400); Red Blood Count 3.75 X10*6/uL (4.60-5.80); Red Cell Distribution Width 17.9 % (11.0-16.0); SCAN SMEAR FLAG 1; White Blood Count 11.6 X10*3/uL (4.8-10.8)
[2022-02-16 11:34] LABS: Alanine Aminotransferase 19 U/L (0-40); Albumin Level 4.6 g/dL (3.5-5.0); Alkaline Phosphatase 81 U/L (39-117); Anion Gap 13 (12-20); Aspartate Amino Transferase 22 U/L (5-37); Bilirubin Total 0.4 mg/dL (0.0-1.0); Blood Urea Nitrogen 19 mg/dL (9-16); Calcium 9.3 mg/dL (8.4-10.2); Carbon Dioxide 26 mmol/L (22-29); Chloride 105 mmol/L (96-108); Creatinine Clr Calc Pharmacy 52.8; Estimated Glomerular Filt Rate > 60; Glucose Random 80 mg/dL (60-115); Sodium 140 mmol/L (135-145)
[2022-02-16 11:49] LABS: SLIDE REVIEW VERIFIED
--- NOTE | 2022-02-16 15:48 | MHC.HEMONC ---
Pt was in for his monthly procrit injection, had labs drawn/reviewed, his Hgb resulted at 12.1. Nurse spoke w/ pt and his , informed Dr. Marks, pt has no indication for procrit this month. Nurse gave pt d/c packet w/ next procrit injection booked on 03/17/22, coinciding w/ his next Hem f/u appt.
--- NOTE | 2022-03-05 13:42 | HO.HEMONCSCH ---
Called patient to CX 03/17/[address] Makrs. Asked if he would mind seeing Dr. Donnelly and agreed to see her for this visit. Booked for 03/19/22
--- NOTE | 2022-03-18 15:39 | HE.ONCSEC ---
I CALLED PATIENT FOR ROUTINE REMINDER CALL . PATIENT DID NOT ANSWER , I LEFT A DETAILED VOICEMAIL INFORMING PATIENT OF APPT DATE & TIME .
[2022-03-19 11:10] VITALS: BP 115/56; PULSE 65; RESP 16; TEMP 36.6; O2SAT 99; BMI 20.2
--- NOTE | 2022-03-19 11:20 | P.PNHO-ONC_ITS ---
Medical Summary - Medical Summary Date of Service: 03/19/22 Chief complaint: Follow-up and scheduled treatment Medical Summary: DIAGNOSIS: MACROCYTIC ANEMIA. ACD. Dyserythropoeisis. CURRENT THERAPY: Procrit received 09/25/21. Interval History Interval history: Patient is here in follow-up, he is doing well and has no complaints today. Review of Systems - Constitutional Denies fatigue, Denies lack of energy, Denies malaise, Denies weight loss - Neurologic Reports no additional neurologic complaints, Denies weakness [facility] Medical History: Medical History (Last Reviewed 03/19/22 @ 11:16 by MIKE Parikh) BPH (benign prostatic hyperplasia) COVID-19 vaccine series completed Elevated cholesterol H/O prostate cancer HTN (hypertension) Hypothyroid PVD (peripheral vascular disease) Functional capacity: independent ambulation Surgical History: Surgical History (Last Reviewed 03/19/22 @ 11:16 by MIKE Parikh) H/O colonoscopy History of carotid endarterectomy Hx of cataract extraction Hx of prostatectomy Hx of umbilical hernia repair Social History: Social History (Last Updated 03/19/22 @ 11:17 by MIKE Parikh) Living Situation History: Household Members: Spouse Housing: House Are you a primary acute care clinical nurse specialist to a significant other at home: No Do you presently have visiting nurse or other home services: No Alcohol History Details: 1. How often do you have a drink containing alcohol?: a. Never Tobacco History: Patient Tobacco Use Status: Never used Tobacco Substance Use History: Use of substances other than those prescribed or required for medical reasons : No Domestic Abuse History: Have you been hit, kicked, punched, or otherwise hurt by someone within the past year? If so, by whom?: No Do you feel safe in your current relationship?: Yes Advance Directives: Advance Directives Date on File: 09/18/21 Homicidal Assessment: Do you have thoughts of harming others: None Do you have a plan to hurt others: No Plan Do you have the means to hurt others: No Nutrition Assessment: Recently lost weight without trying: No Patient : No Occupation Assessmet: service: No Current occupational status: retired Home Medications and Allergies Home Medications Medication Instructions Recorded Confirmed Type ascorbic acid (vitamin C) 1,000 mg 1 g PO DAILY 07/30/21 03/19/22 History tablet (Vitamin C) aspirin 325 mg capsule 325 mg PO DAILY 07/30/21 03/19/22 History cholecalciferol (vitamin D3) 50 50 mcg PO DAILY 07/30/21 03/19/22 History mcg (2,000 unit) capsule (Vitamin D3) cyanocobalamin (vitamin B-12) 1,000 mcg PO DAILY 07/30/21 03/19/22 History 1,000 mcg capsule ferrous sulfate 325 mg (65 mg 32 mg PO Q OTHER DAY 07/30/21 03/19/22 History iron) tablet multivitamin 1 tab PO DAILY 07/30/21 03/19/22 History Allergies Allergy/AdvReac Type Severity Reaction Status Date / Time No Known Allergies Allergy Verified 03/19/22 11:19 [No Known Allergies*] Exam Vital signs: Vital Signs Temp 97.8 F 03/19/22 11:10 Pulse 65 03/19/22 11:10 Resp 16 03/19/22 11:10 BP 115/56 L 03/19/22 11:10 Pulse Ox 99 03/19/22 11:10 O2 Del Method 03/19/22 11:10 Intake & Output 03/18/22 03/19/22 03/19/22 18:59 06:59 18:59 Other: Weight 62.4 kg [place] Weight in Grams [id number] Weight 62.4 kg BMI result Body Mass Index 20.2 - Constitutional Present: no acute distress - Routine HEENT Exam Head: Present: normal inspection - Routine Neck Exam Present: full ROM - Routine Respiratory Exam Present: CTAB - Routine Cardiovascular Exam Cardiovascular: Present: RRR, S1, S2 - Routine Abdominal Exam Present: nontender - Routine Extremities Exam Present: nontender - Routine Back/Spine/Pelvis Exam Back/Spine: Present: full ROM - Routine Skin Exam Present: intact, normal turgor - Routine Neurological Exam Present: alert, oriented X3 - Detailed Neurological Exam: Coma Scale Eye Opening: Spontaneous (4) - Routine Psychiatric Exam Present: normal affect Data - Labs CBC & Chem 7: 03/19/22 11:05 03/19/22 11:05 Assessment and Plan Patient Active problem list reviewed?: Yes (1) Macrocytic anemia Status: Acute Assessment and plan: This is a pleasant 82-year-old male with macrocytic anemia, on DEMAR therapy. He had a bone marrow exam done, on 09/18/21. Pathology: Hypercellular, erythroid predominant marrow with diserythropoiesis. No increase in blasts or infiltrative process. Reduced storage iron. Flow cytometry is negative for a lymphoproliferative disorder or increased blasts. Cytogenetics and MDS fish panel are negative. CBC shows near normal hemoglobin of 12 gram/dL. DEMAR therapy deferred. Follow-up in 1 month. - Time Spent With Patient Time Spent with Patient (in minutes): 15
[2022-03-19 11:21] LABS: Basophils Absolute Auto 0.1 X10*3/uL (0.0-0.2); Basophils Percent Auto 0.4 % (0-2); Eosinophils Absolute Auto 0.3 X10*3/uL (0.0-0.4); Eosinophils Percent Auto 1.8 % (0-4); Hematocrit 36.6 % (42.0-52.0); Imm Gran Abs Auto 0.24 X10*3/uL (0.00-0.03); Imm Gran Pct Auto 1.8 % (0.0-0.4); Lymphocytes Percent Auto 14.4 % (20-40); MANUAL DIFF FLAG SCAN; Mean Corpuscular HGB Conc 32.8 g/dl (31.0-36.0); Mean Corpuscular Hemoglobin 32.3 pg (27.0-33.0); Mean Corpuscular Volume 98.4 fL (80.0-98.0); Mean Platelet Volume 11.4 fL (9.4-12.4); Monocytes Absolute Auto 4.2 X10*3/uL (0.1-1.2); Monocytes Percent Auto 31.1 % (2-11); Neutrophils Absolute Auto 6.8 x10*3/uL (2.0-8.3); Neutrophils Percent Auto 50.5 % (45-73); Platelet Count 140 X10*3/uL (160-400); Red Blood Count 3.72 X10*6/uL (4.60-5.80); Red Cell Distribution Width 17.1 % (11.0-16.0); SCAN SMEAR FLAG 1; White Blood Count 13.6 X10*3/uL (4.8-10.8)
[2022-03-19 11:39] LABS: Alanine Aminotransferase 14 U/L (0-40); Albumin Level 4.5 g/dL (3.5-5.0); Alkaline Phosphatase 67 U/L (39-117); Anion Gap 14 (12-20); Aspartate Amino Transferase 18 U/L (5-37); Bilirubin Total 0.7 mg/dL (0.0-1.0); Blood Urea Nitrogen 21 mg/dL (9-16); Calcium 9.1 mg/dL (8.4-10.2); Carbon Dioxide 26 mmol/L (22-29); Chloride 103 mmol/L (96-108); Creatinine Clr Calc Pharmacy 47.7; Estimated Glomerular Filt Rate > 60; Glucose Random 100 mg/dL (60-115); Potassium 4.2 mmol/L (3.3-5.1); Sodium 139 mmol/L (135-145); Total Protein 7.8 g/dL (6.5-8.0)
[2022-03-19 11:46] LABS: SLIDE REVIEW VERIFIED
--- NOTE | 2022-03-19 13:24 | MHC.HEMONCMA ---
pt seen today for 3 month f/u , labs,vss , accompanied by his ,
--- NOTE | 2022-03-19 17:44 | MHC.HEMONC ---
Pt was in for his monthly procrit injection, as well as f/u w/ Dr. Donnelly. Pt's labs were drawn and reviewed, Hgb stable at 12.0, was 12.1 a month ago. Pt not indicated to receive procrit today. Dr. Donnelly was updated. Pt had his next procrit injection w/ labs booked in a month, on 04/16/22.
[2022-04-16 11:38] LABS: Alanine Aminotransferase 12 U/L (0-40); Albumin Level 4.4 g/dL (3.5-5.0); Alkaline Phosphatase 70 U/L (39-117); Anion Gap 15 (12-20); Aspartate Amino Transferase 17 U/L (5-37); Bilirubin Total 0.5 mg/dL (0.0-1.0); Blood Urea Nitrogen 22 mg/dL (9-16); Calcium 9.2 mg/dL (8.4-10.2); Carbon Dioxide 27 mmol/L (22-29); Chloride 103 mmol/L (96-108); Creatinine Clr Calc Pharmacy 43.3; Estimated Glomerular Filt Rate 58; Glucose Random 69 mg/dL (60-115); Iron 104 mcg/dL (45-160); Percent Iron Saturation 35 % (15-50); Potassium 4.2 mmol/L (3.3-5.1); Sodium 141 mmol/L (135-145); Total Iron Binding Capacity 301 mcg/dL (228-428); Unsaturated Iron Binding 197 ug/dL
[2022-04-16 11:41] LABS: Basophils Absolute Auto 0.1 X10*3/uL (0.0-0.2); Basophils Percent Auto 0.4 % (0-2); Eosinophils Absolute Auto 0.3 X10*3/uL (0.0-0.4); Hematocrit 37.8 % (42.0-52.0); Hemoglobin 12.3 g/dl (14.0-18.0); Imm Gran Abs Auto 0.33 X10*3/uL (0.00-0.03); Imm Gran Pct Auto 2.4 % (0.0-0.4); Lymphocytes Absolute Auto 2.4 X10*3/uL (1.2-4.9); Lymphocytes Percent Auto 17.2 % (20-40); Mean Corpuscular HGB Conc 32.5 g/dl (31.0-36.0); Mean Corpuscular Hemoglobin 32.2 pg (27.0-33.0); Mean Platelet Volume 11.9 fL (9.4-12.4); Monocytes Absolute Auto 4.2 X10*3/uL (0.1-1.2); Neutrophils Absolute Auto 6.7 x10*3/uL (2.0-8.3); Neutrophils Percent Auto 47.9 % (45-73); Platelet Count 156 X10*3/uL (160-400); Red Blood Count 3.82 X10*6/uL (4.60-5.80); Red Cell Distribution Width 17.5 % (11.0-16.0); SCAN SMEAR FLAG 1
[2022-04-16 11:50] LABS: MANUAL DIFF FLAG NO; Monocytes Percent Auto 30.1 % (2-11)
[2022-04-16 11:57] LABS: Ferritin 214 ng/mL (20-250)
--- NOTE | 2022-04-16 16:44 | MHC.HEMONC ---
Pt came in today for sched monthly procrit injection, nurse confirmed no PA req'd under Medicare Part B. Pt reported feeling well, labs drawn/reviewed, Hgb resulted 12.3, improved from last month when he was at 12.0. Dr. Marks was informed, no procrit injection indicated today, pt has not required procrit injection since 12/12/21. Pt was booked for Hem f/u on 05/21/22, w/ procrit injection on same date, to be discussed whether to continue booking procrit injections in the future.
[2022-05-25 10:38] VITALS: BP 137/63; PULSE 77; RESP 14; TEMP 36.6; O2SAT 97; BMI 20.6
--- NOTE | 2022-05-25 10:47 | P.PNHO-ONC_ITS ---
Medical Summary - Medical Summary Date of Service: 05/25/22 Chief complaint: For: ACD. Medical Summary: DIAGNOSIS: MACROCYTIC ANEMIA. ACD. Dyserythropoeisis. CURRENT THERAPY: Procrit received: On 12/12, 01/12, and 02/17. Interval History Interval history: Celestino Gage is a pleasant 82 year old gentleman, here for a follow-up visit. He tells me he is doing quite well. His energy level has been good. Only if he walks a lot he gets tired. He denies any complaints. Denies fever nor chills. His appetite is good. He eats 3 sq meals a day. Denies weight loss. No headache no dizziness. He denies chest pain or trouble breathing. No cough no sputum. No abdominal pain nausea vomiting heartburn indigestion. Bowels are working. He denies diarrhea. No gross blood in the stools. Bowels are dark from the iron. No dysuria or hematuria. 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 No focal weakness. He denies depression. No skin rashes nor pruritus. He busy lifestyle. They have a dog that they love who keeps them active. They are taking him for walks. Previous history: He had a bone marrow exam done, on 09/18. The results: Pathology: Hypercellular, erythroid predominant marrow with diserythropoiesis. No increase in blasts or infiltrative process. Reduced storage iron. Flow cytometry is negative for a lymphoproliferative disorder or increased blasts. Cytogenetics and MDS fish panel are negative. PAST MEDICAL HISTORY: He mentioned that his hemoglobin has been trickling down over the years. Review of his labs in the computer revealed: 06/16, CBC: WBC 10.4, HGB 11, HCT 34.2, MCV 103.6, PLT 135. Ferritin: 184. B12 1130. Folate >20. Previous blood count: 04/23/2021 hemoglobin 10.9. 10/15/2020: Hemoglobin 11.9. 01/12/19: Hemoglobin 13. He has been taking half a iron tablet, every other day for the past couple of months. His blood pressure has been well controlled. He is off the lisinopril now. His blood pressure is normal now. FAMILY HISTORY: Denies any known heme Onc problems in the family. 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 He is . Has no children. He denies smoking. No alcohol. Review of Systems - Constitutional Reports no additional constitutional complaints - Eyes Reports no additional eye complaints - ENT Reports no additional ear, nose, mouth, and throat complaints - Cardiovascular Reports no additional cardiovascular complaints - Respiratory Reports no additional respiratory complaints - Gastrointestinal Reports no additional gastrointestinal complaints - Genitourinary Genitourinary: Reports no additional male genitourinary complaints - Musculoskeletal Reports no additional musculoskeletal complaints - Integumentary/Breasts Skin/Breast: Reports no additional skin complaints - Neurologic Reports no additional neurologic complaints, Denies weakness - Psychiatric Reports no additional psychiatric complaints - Endocrine Reports no additional endocrine complaints - Hematologic/Lymphatic Reports no additional hematologic/lymphatic complaints - Allergic/Immunologic Reports no additional allergic/immunologic complaints [facility] Medical History: Medical History (Last Reviewed 05/25/22 @ 10:42 by Alma Ortiz CMA) BPH (benign prostatic hyperplasia) COVID-19 vaccine series completed Elevated cholesterol H/O prostate cancer HTN (hypertension) Hypothyroid PVD (peripheral vascular disease) Functional capacity: independent ambulation Patient : No Surgical History: Surgical History (Last Reviewed 05/25/22 @ 10:42 by Alma Ortiz CMA) H/O colonoscopy History of carotid endarterectomy Hx of cataract extraction Hx of prostatectomy Hx of umbilical hernia repair Social History: Social History (Last Reviewed 05/25/22 @ 10:42 by Alma Ortiz CMA) Living Situation History: Household Members: Spouse Housing: House Are you a primary transitional care liaison to a significant other at home: No Do you presently have visiting nurse or other home services: No Alcohol History Details: 1. How often do you have a drink containing alcohol?: a. Never Tobacco History: Patient Tobacco Use Status: Never used Tobacco Substance Use History: Use of substances other than those prescribed or required for medical reasons : No Domestic Abuse History: Have you been hit, kicked, punched, or otherwise hurt by someone within the past year? If so, by whom?: No Do you feel safe in your current relationship?: Yes Advance Directives: Advance Directives Date on File: 09/18/21 Homicidal Assessment: Do you have thoughts of harming others: None Do you have a plan to hurt others: No Plan Do you have the means to hurt others: No Nutrition Assessment: Recently lost weight without trying: No Patient : No Occupation Assessmet: service: No Current occupational status: retired Oncology Screenings - ECOG Performance Status ECOG Performance Status: 0 Home Medications and Allergies Current Medications: Current Medications Epoetin Davide (Epoetin Davide 20,000 Unit/Ml Vial) 40,000 unit SUBCUT ONCE ONE Stop: 05/25/22 10:02 Home Medications Medication Instructions Recorded Confirmed Type ascorbic acid (vitamin C) 1,000 mg 1 g PO DAILY 07/30/21 05/25/22 History tablet (Vitamin C) aspirin 325 mg capsule 325 mg PO DAILY 07/30/21 05/25/22 History cholecalciferol (vitamin D3) 50 50 mcg PO DAILY 07/30/21 05/25/22 History mcg (2,000 unit) capsule (Vitamin D3) cyanocobalamin (vitamin B-12) 1,000 mcg PO DAILY 07/30/21 05/25/22 History 1,000 mcg capsule ferrous sulfate 325 mg (65 mg 32 mg PO Q OTHER DAY 07/30/21 05/25/22 History iron) tablet multivitamin 1 tab PO DAILY 07/30/21 05/25/22 History Allergies Allergy/AdvReac Type Severity Reaction Status Date / Time No Known Allergies Allergy Verified 05/25/22 10:43 [No Known Allergies*] Exam Vital signs: Vital Signs Temp 97.8 F 05/25/22 10:38 Pulse 77 05/25/22 10:38 Resp 14 05/25/22 10:38 BP 137/63 05/25/22 10:38 Pulse Ox 97 05/25/22 10:38 O2 Del Method 05/25/22 10:38 Intake & Output 05/24/22 05/25/22 05/25/22 18:59 06:59 18:59 Other: Weight 63.3 kg [place] Weight in Grams 24430 Weight 63.3 kg BMI result Body Mass Index 20.6 - Constitutional Present: no acute distress - Routine HEENT Exam Head: Present: normal inspection Eye: Present: normal appearance ENT: Present: mucous membranes moist - Routine Neck Exam Present: full ROM - Routine Respiratory Exam Present: CTAB - Routine Cardiovascular Exam Cardiovascular: Present: RRR, S1, S2 - Routine Abdominal Exam Present: nontender - Routine Extremities Exam Present: nontender - Routine Back/Spine/Pelvis Exam Back/Spine: Present: full ROM - Routine Skin Exam Present: intact, normal turgor - Routine Neurological Exam Present: alert, oriented X3 - Detailed Neurological Exam: Coma Scale Eye Opening: Spontaneous (4) - Routine Psychiatric Exam Present: normal affect Data - Labs CBC & Chem 7: 05/25/22 11:27 05/25/22 10:35 Assessment and Plan Patient Active problem list reviewed?: Yes (1) Macrocytic anemia Status: Acute Assessment and plan: This is a pleasant 81-year-old gentleman with a history of macrocytic anemia. DIFFERENTIAL DIAGNOSIS: 1. B12 FOLATE DEFICIENCY: B12 LEVEL 1130. FOLATE: >20. 2. UNDERLYING MYELO INFILTRATIVE DISORDER: MDS can present with macrocytosis. Differential multiple myeloma. 3. THYROID DISEASE CAN GIVE RISE TO MACROCYTOSIS. 4. COPD: Can also cause increased red cell size. 5. MULTIFACTORIAL ANEMIA: With combined iron deficiency. Iron studies: 141/326/47/209. He has been taking half a iron tablet, every other day for the past month. I proceeded with further evaluation. Checked SIEP: no monoclonal spike. Checked LDH: 245. Checked TSH: 1.12 and T4. He is holding stable. His CBC reveals an elevated WBC count and thrombocytopenia. I was concerned about an underlying bone marrow disorder. He had a bone marrow exam done, on 09/18. He is here to review the results. Pathology: Hypercellular, erythroid predominant marrow with diserythropoiesis. No increase in blasts or infiltrative process. Reduced storage iron. Flow cytometry is negative for a lymphoproliferative disorder or increased blasts. Cytogenetics and MDS fish panel are negative. Review of his labs from 09/18, revealed: WBC 12.4, Hemoglobin of 9.8/29.8, PLT 136. BUN 25, [employer] 1.17, creatinine clearance 47.4. Patient has anemia of chronic disease related to stage III CKD. 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 Procrit would help with both the disorders. Details of the regimen including elevated blood pressure, elevated hemoglobin, headache dizziness, thrombosis were all addressed with him. He understood and was willing to proceed. He received a shot of Procrit on 09/25. Subsequently hemoglobin went up to above 12. His hemoglobin in October was 12.2. On 11/10 it was 12.0. He is doing very well. He received Procrit on 12/12 and 01/12 and 02/17. He has not required it since then. Today's hemoglobin: 11.1. His ferritin: 214. Previous Iron studies: 62/295/21/174. PLAN: He does not need to get Procrit today. He will continue to come back monthly to get his labs checked, for possible Procrit injection. Hopefully that will keep helping his hemoglobin and energy level. He will return in 3 months for a follow-up visit. Thanks, CC: Joe Schultz - Time Spent With Patient Time Spent with Patient (in minutes): 30
[2022-05-25 11:24] LABS: Alanine Aminotransferase 12 U/L (0-40); Albumin Level 4.4 g/dL (3.5-5.0); Alkaline Phosphatase 80 U/L (39-117); Anion Gap 15 (12-20); Aspartate Amino Transferase 20 U/L (5-37); Bilirubin Total 0.9 mg/dL (0.0-1.0); Blood Urea Nitrogen 22 mg/dL (9-16); Carbon Dioxide 26 mmol/L (22-29); Chloride 102 mmol/L (96-108); Cholesterol 152 mg/dL; Estimated Glomerular Filt Rate > 60; Glucose Fasting 81 mg/dL (60-99); HDL Cholesterol 30 mg/dL; LDL Cholesterol Calculated 90 mg/dl; Potassium 4.3 mmol/L (3.3-5.1); Sodium 139 mmol/L (135-145); Total Protein 7.7 g/dL (6.5-8.0); Triglycerides 160 mg/dL
[2022-05-25 11:38] LABS: TSH reflex Free T4 0.38 uIU/mL (0.32-4.0)
[2022-05-25 11:41] LABS: Basophils Percent Auto 0.3 % (0-2); Eosinophils Absolute Auto 0.4 X10*3/uL (0.0-0.4); Eosinophils Percent Auto 2.9 % (0-4); Hematocrit 33.8 % (42.0-52.0); Hemoglobin 11.1 g/dl (14.0-18.0); Imm Gran Abs Auto 0.25 X10*3/uL (0.00-0.03); Imm Gran Pct Auto 1.8 % (0.0-0.4); Lymphocytes Absolute Auto 1.7 X10*3/uL (1.2-4.9); Lymphocytes Percent Auto 12.4 % (20-40); MANUAL DIFF FLAG SCAN; Mean Corpuscular HGB Conc 32.8 g/dl (31.0-36.0); Mean Corpuscular Hemoglobin 32.7 pg (27.0-33.0); Mean Corpuscular Volume 99.7 fL (80.0-98.0); Monocytes Percent Auto 35.8 % (2-11); NRBC Pct Auto 0.1 /100WBC (0.0-0.2); Neutrophils Absolute Auto 6.5 x10*3/uL (2.0-8.3); Neutrophils Percent Auto 46.8 % (45-73); Platelet Count 139 X10*3/uL (160-400); Red Blood Count 3.39 X10*6/uL (4.60-5.80); Red Cell Distribution Width 17.9 % (11.0-16.0); SCAN SMEAR FLAG 1; White Blood Count 13.8 X10*3/uL (4.8-10.8)
[2022-05-25 11:55] LABS: SLIDE REVIEW VERIFIED
--- NOTE | 2022-05-25 12:01 | MHC.HEMONC ---
Pt here for for monthly procrit injection. Labs drawn by firestopper technician-specimen to lab. H & H .8-no procrit today. Dr Marks notified and into see pt. Next appointment scheduled for 06/23/22 at 1100-calendar given.
--- NOTE | 2022-05-25 12:47 | MHC.HEMONCMA ---
Pt was in for follow up. Clinical summary reviewed and updated, VSS. Labs were drawn. Pt to return in 3 months.
[2022-06-23 11:20] LABS: Basophils Percent Auto 0.3 % (0-2); Eosinophils Absolute Auto 0.4 X10*3/uL (0.0-0.4); Eosinophils Percent Auto 3.4 % (0-4); Hematocrit 39.6 % (42.0-52.0); Hemoglobin 12.9 g/dl (14.0-18.0); Imm Gran Pct Auto 0.8 % (0.0-0.4); Lymphocytes Percent Auto 15.6 % (20-40); MANUAL DIFF FLAG SCAN; Mean Corpuscular HGB Conc 32.6 g/dl (31.0-36.0); Mean Corpuscular Hemoglobin 32.7 pg (27.0-33.0); Mean Corpuscular Volume 100.3 fL (80.0-98.0); Mean Platelet Volume 11.9 fL (9.4-12.4); Monocytes Absolute Auto 4.6 X10*3/uL (0.1-1.2); Monocytes Percent Auto 36.8 % (2-11); Neutrophils Absolute Auto 5.4 x10*3/uL (2.0-8.3); Neutrophils Percent Auto 43.1 % (45-73); Platelet Count 133 X10*3/uL (160-400); Red Blood Count 3.95 X10*6/uL (4.60-5.80); Red Cell Distribution Width 18.1 % (11.0-16.0); SCAN SMEAR FLAG 1; White Blood Count 12.5 X10*3/uL (4.8-10.8)
[2022-06-23 11:32] LABS: Alanine Aminotransferase 16 U/L (0-40); Albumin Level 4.6 g/dL (3.5-5.0); Alkaline Phosphatase 80 U/L (39-117); Anion Gap 14 (12-20); Aspartate Amino Transferase 24 U/L (5-37); Bilirubin Total 0.7 mg/dL (0.0-1.0); Blood Urea Nitrogen 22 mg/dL (9-16); Calcium 9.7 mg/dL (8.4-10.2); Carbon Dioxide 28 mmol/L (22-29); Chloride 104 mmol/L (96-108); Creatinine Clr Calc Pharmacy 45.4; Estimated Glomerular Filt Rate > 60; Glucose Random 66 mg/dL (60-115); Potassium 4.2 mmol/L (3.3-5.1); Sodium 142 mmol/L (135-145); Total Protein 8.2 g/dL (6.5-8.0)
[2022-06-23 11:46] LABS: SLIDE REVIEW VERIFIED
--- NOTE | 2022-06-23 11:49 | MHC.HEMONC ---
Pt here for monthly procrit injection. Labs drawn by supply specialist-specimen to lab. H & H 12.9/39.[address] Marks. Pt has not received Procrit injection since December 2021. Plan for pt to come every 2 months for Procrit providing pt continued to feel well. Pt agrees to plan and states he will call if he feels fatigued and needs to come in earlier than 2 months. Appointment scheduled for Aug 2022, calendar and lab results given per pt request
[2022-08-24 11:25] LABS: Basophils Percent Auto 0.3 % (0-2); Eosinophils Absolute Auto 0.3 X10*3/uL (0.0-0.4); Hematocrit 35.3 % (42.0-52.0); Hemoglobin 11.7 g/dl (14.0-18.0); Imm Gran Abs Auto 0.12 X10*3/uL (0.00-0.03); Imm Gran Pct Auto 1.2 % (0.0-0.4); Lymphocytes Percent Auto 19.4 % (20-40); MANUAL DIFF FLAG SCAN; Mean Corpuscular HGB Conc 33.1 g/dl (31.0-36.0); Mean Corpuscular Hemoglobin 32.6 pg (27.0-33.0); Mean Corpuscular Volume 98.3 fL (80.0-98.0); Mean Platelet Volume 11.6 fL (9.4-12.4); Monocytes Absolute Auto 2.8 X10*3/uL (0.1-1.2); Monocytes Percent Auto 27.4 % (2-11); NRBC Pct Auto 0.2 /100WBC (0.0-0.2); Neutrophils Absolute Auto 5.1 x10*3/uL (2.0-8.3); Neutrophils Percent Auto 48.7 % (45-73); Platelet Count 105 X10*3/uL (160-400); Red Blood Count 3.59 X10*6/uL (4.60-5.80); Red Cell Distribution Width 17.6 % (11.0-16.0); SCAN SMEAR FLAG 1; White Blood Count 10.4 X10*3/uL (4.8-10.8)
[2022-08-24 11:45] LABS: Alanine Aminotransferase 15 U/L (0-40); Albumin Level 4.2 g/dL (3.5-5.0); Alkaline Phosphatase 64 U/L (39-117); Anion Gap 15 (12-20); Aspartate Amino Transferase 19 U/L (5-37); Bilirubin Total 0.7 mg/dL (0.0-1.0); Blood Urea Nitrogen 22 mg/dL (9-16); Carbon Dioxide 26 mmol/L (22-29); Chloride 104 mmol/L (96-108); Creatinine Clr Calc Pharmacy 52.7; Estimated Glomerular Filt Rate > 60; Glucose Random 90 mg/dL (60-115); Iron 113 mcg/dL (45-160); Percent Iron Saturation 43 % (15-50); Potassium 4.2 mmol/L (3.3-5.1); Sodium 141 mmol/L (135-145); Total Iron Binding Capacity 264 mcg/dL (228-428); Total Protein 7.4 g/dL (6.5-8.0); Unsaturated Iron Binding 151 ug/dL
[2022-08-24 11:47] LABS: SLIDE REVIEW VERIFIED
[2022-08-24 11:59] LABS: Ferritin 227 ng/mL (20-250)
--- NOTE | 2022-08-24 15:34 | MHC.HEMONC ---
Pt here for P1waszu Procrit. HGB 11.7, Xgeva not given. PLT 105 decreased: labs copied and left for Dr Marks to f/u PLT's. Next Xgeva in 2 months. 09/21/22 calendar given. Pt departed.
--- NOTE | 2022-08-28 11:01 | MHC.HEMONC ---
Triage call-Pt called department questioning recent lab results. Concerned about platelet level of 105-Dr Marks notified. Per Dr Marks-dietary options for foods that will increase platelet level mailed to pt. Pt educated on fluctuating platelet levels over time and department will be monitoring future lab results
--- NOTE | 2022-09-15 09:02 | MHC.HEMONC ---
triage call-Received call from pt's stating pt is weak,tired and lightheaded at times. Requesting to be seen by provider today-appointment scheduled at [address] Marks today-family notified
--- NOTE | 2022-09-15 12:34 | PM.HEMONCPN ---
Medical Summary - Medical Summary Date of Service: 09/15/22 Chief complaint: Follow-up for: Macrocytic anemia. Medical Summary: DIAGNOSIS: MACROCYTIC ANEMIA. ACD. Dyserythropoeisis. CURRENT THERAPY: Procrit received: On 12/12, 01/12, and 02/17 and 05/15/22. Interval History Interval history: Celestino Gage is a pleasant 82 year old gentleman, here for a follow-up visit. He tells me he is not doing too well. He has noted a painnin the mid left chest wall. There is a tender spot there. When he breaths in and leans forwarded, it get relieved. His energy level has not been that good. He tires easily. Denies fever nor chills. No headache no dizziness. He denies chest pain or trouble breathing. No cough no sputum. No abdominal pain nausea vomiting heartburn indigestion. Bowels are working. He denies diarrhea. No gross blood in the stools. Bowels are dark from the iron. His apetite is fair. He has lost weeight. No dysuria or hematuria. 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 No focal weakness. He denies depression. No skin rashes nor pruritus. He has a busy lifestyle. They have a dog that they love, who keeps them active. They are taking him for walks. Previous history: He had a bone marrow exam done, on 09/18. The results: Pathology: Hypercellular, erythroid predominant marrow with diserythropoiesis. No increase in blasts or infiltrative process. Reduced storage iron. Flow cytometry is negative for a lymphoproliferative disorder or increased blasts. Cytogenetics and MDS fish panel are negative. PAST MEDICAL HISTORY: He mentioned that his hemoglobin has been trickling down over the years. Review of his labs in the computer revealed: 06/16, CBC: WBC 10.4, HGB 11, HCT 34.2, MCV 103.6, PLT 135. Ferritin: 184. B12 1130. Folate >20. Previous blood count: 04/23/2021 hemoglobin 10.9. 10/15/2020: Hemoglobin 11.9. 01/12/19: Hemoglobin 13. He has been taking half a iron tablet, every other day for the past couple of months. His blood pressure has been well controlled. He is off the lisinopril now. His blood pressure is normal now. FAMILY HISTORY: Denies any known heme Onc problems in the family. 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 He is . Has no children. He denies smoking. No alcohol. Review of Systems - Constitutional Reports system reviewed and no additional complaints, except as documented, Reports fatigue, Reports lack of energy, Denies fever(s) - Eyes Reports system reviewed and no additional complaints, except as documented, Denies blurry vision - ENT Reports system reviewed and no additional complaints, except as documented - Cardiovascular Reports system reviewed and no additional complaints, except as documented, Reports chest pain at rest - Respiratory Reports no additional respiratory complaints, Reports dyspnea on exertion, Denies cough - Gastrointestinal Reports system reviewed and no additional complaints, except as documented - Genitourinary Genitourinary: Reports no additional male genitourinary complaints, Denies blood in urine - Musculoskeletal Reports system reviewed and no additional complaints, except as documented, Denies back pain - Integumentary/Breasts Skin/Breast: Reports no additional skin complaints, Denies bleeding lesions - Neurologic Reports system reviewed and no additional complaints, except as documented, Denies weakness - Psychiatric Reports system reviewed and no additional complaints, except as documented - Endocrine Reports no additional endocrine complaints, Denies excessive sweating - Hematologic/Lymphatic Reports system reviewed and no additional complaints, except as documented, Denies easy bruising - Allergic/Immunologic Reports system reviewed and no additional complaints, except as documented PMFSH Medical History: Medical History (Last Reviewed 09/15/22 @ 13:27 by Alma Ortiz CMA) BPH (benign prostatic hyperplasia) COVID-19 vaccine series completed Elevated cholesterol H/O prostate cancer HTN (hypertension) Hypothyroid PVD (peripheral vascular disease) Functional capacity: independent ambulation Patient : No Surgical History: Surgical History (Last Reviewed 09/15/22 @ 13:27 by Alma Ortiz CMA) H/O colonoscopy History of carotid endarterectomy Hx of cataract extraction Hx of prostatectomy Hx of umbilical hernia repair Social History: Social History (Last Reviewed 09/15/22 @ 13:27 by Alma Ortiz CMA) Living Situation History: Household Members: Spouse Housing: House Are you a primary pet care assistant to a significant other at home: No Do you presently have visiting nurse or other home services: No Tobacco History: Patient Tobacco Use Status: Never used Tobacco Advance Directives: Advance Directives Date on File: 09/18/21 Occupation Assessmet: service: No Current occupational status: retired Oncology Screenings - ECOG Performance Status ECOG Performance Status: 1 Home Medications and Allergies Home Medications Medication Instructions Recorded Confirmed Type ascorbic acid (vitamin C) 1,000 mg 1 g PO DAILY 07/30/21 09/15/22 History tablet (Vitamin C) aspirin 325 mg capsule 325 mg PO DAILY 07/30/21 09/15/22 History cholecalciferol (vitamin D3) 50 50 mcg PO DAILY 07/30/21 09/15/22 History mcg (2,000 unit) capsule (Vitamin D3) cyanocobalamin (vitamin B-12) 1,000 mcg PO DAILY 07/30/21 09/15/22 History 1,000 mcg capsule ferrous sulfate 325 mg (65 mg 32 mg PO Q OTHER DAY 07/30/21 09/15/22 History iron) tablet multivitamin 1 tab PO DAILY 07/30/21 09/15/22 History Allergies Allergy/AdvReac Type Severity Reaction Status Date / Time No Known Allergies Allergy Verified 09/15/22 13:27 [No Known Allergies*] Exam Vital signs: Vital Signs Temp 97.8 F 05/25/22 10:38 Pulse 77 05/25/22 10:38 Resp 14 05/25/22 10:38 BP 137/63 05/25/22 10:38 Pulse Ox 97 05/25/22 10:38 O2 Del Method 05/25/22 10:38 Weight 63.3 kg BMI result Body Mass Index 20.6 - Constitutional Present: no acute distress - Routine HEENT Exam Head: Present: normal inspection Eye: Present: normal appearance ENT: Present: mucous membranes moist - Routine Neck Exam Present: full ROM - Routine Chest/Breast/Axilla Exam Chest wall: Present: tenderness - Routine Respiratory Exam Present: CTAB Comments: Diminished breath sounds on the left base. - Routine Cardiovascular Exam Cardiovascular: Present: RRR, S1, S2 - Routine Abdominal Exam Present: nontender - Routine Extremities Exam Present: nontender - Routine Back/Spine/Pelvis Exam Back/Spine: Present: full ROM - Routine Skin Exam Present: intact, normal turgor - Routine Neurological Exam Present: alert, oriented X3 - Detailed Neurological Exam: Coma Scale Eye Opening: Spontaneous (4) - Routine Psychiatric Exam Present: normal affect Data - Labs CBC & Chem 7: 09/15/22 13:07 09/15/22 13:07 Assessment and Plan Patient Active problem list reviewed?: Yes (1) Macrocytic anemia Status: Acute Assessment and plan: This is a pleasant 81-year-old gentleman with a history of macrocytic anemia. DIFFERENTIAL DIAGNOSIS: 1. B12 FOLATE DEFICIENCY: B12 LEVEL 1130. FOLATE: >20. 2. UNDERLYING MYELO INFILTRATIVE DISORDER: MDS can present with macrocytosis. Differential multiple myeloma. 3. THYROID DISEASE CAN GIVE RISE TO MACROCYTOSIS. 4. COPD: Can also cause increased red cell size. 5. MULTIFACTORIAL ANEMIA: With combined iron deficiency. Iron studies: 141/326/47/209. He has been taking half a iron tablet, every other day for the past month. I proceeded with further evaluation. Checked SIEP: no monoclonal spike. Checked LDH: 245. Checked TSH: 1.12 and T4. He is holding stable. His CBC reveals an elevated WBC count and thrombocytopenia. I was concerned about an underlying bone marrow disorder. He had a bone marrow exam done, on 09/18. He is here to review the results. Pathology: Hypercellular, erythroid predominant marrow with diserythropoiesis. No increase in blasts or infiltrative process. Reduced storage iron. Flow cytometry is negative for a lymphoproliferative disorder or increased blasts. Cytogenetics and MDS fish panel are negative. Review of his labs from 09/18, revealed: WBC 12.4, Hemoglobin of 9.8/29.8, PLT 136. BUN 25, TYPEWRITER ALIGNER 1.17, creatinine clearance 47.4. Patient has anemia of chronic disease related to stage III CKD. 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 Procrit would help with both the disorders. Details of the regimen including elevated blood pressure, elevated hemoglobin, headache dizziness, thrombosis were all addressed with him. He understood and was willing to proceed. He received a shot of Procrit on 09/25. Subsequently hemoglobin went up to above 12. His hemoglobin in October was 12.2. On 11/10 it was 12.0. He is doing very well. He received Procrit on 12/12 and 01/12 and 02/17. He has not required it since then. Today's hemoglobin: 11.1. His ferritin: 214. Previous Iron studies: 62/295/21/174. PLAN: He does not need to get Procrit today. He will continue to come back monthly to get his labs checked, for possible Procrit injection. Hopefully that will keep helping his hemoglobin and energy level. He will return in 3 months for a follow-up visit. Thanks, CC: Joe Schultz (2) Abnormal chest x-ray Status: Acute Assessment and plan: 82 year old gentleman who complained of left-sided chest pain. He had diminished breath sounds on the left base. Chest x-ray revealed: Small to moderate left pleural effusion with associated airspace opacity which could represent atelectasis or pneumonia. There may be mild pleural thickening at the periphery of the left upper hemithorax. PLAN: Plan is to proceed with further evaluation. I will proceed with a CT scan of the chest. Will then proceed with diagnostic and therapeutic thoracentesis on the left side. Will plan further management based upon the above results. He will return in a couple of weeks for a follow-up visit. Thank you, - Time Spent With Patient Time Spent with Patient (in minutes): 30
[2022-09-15 13:24] VITALS: BP 122/64; PULSE 83; RESP 12; TEMP 36.6; O2SAT 94; BMI 21.4
[2022-09-15 13:28] LABS: Basophils Percent Auto 0.2 % (0-2); Eosinophils Absolute Auto 0.3 X10*3/uL (0.0-0.4); Eosinophils Percent Auto 2.7 % (0-4); Hematocrit 33.6 % (42.0-52.0); Imm Gran Abs Auto 0.09 X10*3/uL (0.00-0.03); Imm Gran Pct Auto 0.9 % (0.0-0.4); Lymphocytes Absolute Auto 2.3 X10*3/uL (1.2-4.9); Lymphocytes Percent Auto 23.1 % (20-40); MANUAL DIFF FLAG SCAN; Mean Corpuscular HGB Conc 32.7 g/dl (31.0-36.0); Mean Corpuscular Hemoglobin 31.9 pg (27.0-33.0); Mean Corpuscular Volume 97.4 fL (80.0-98.0); Mean Platelet Volume 10.8 fL (9.4-12.4); Monocytes Absolute Auto 2.2 X10*3/uL (0.1-1.2); Monocytes Percent Auto 21.7 % (2-11); NRBC Pct Auto 0.5 /100WBC (0.0-0.2); Neutrophils Absolute Auto 5.1 x10*3/uL (2.0-8.3); Neutrophils Percent Auto 51.4 % (45-73); Red Blood Count 3.45 X10*6/uL (4.60-5.80); Red Cell Distribution Width 18.6 % (11.0-16.0); SCAN SMEAR FLAG 1
[2022-09-15 13:29] LABS: Platelet Count 96 X10*3/uL (160-400)
[2022-09-15 13:39] LABS: Alanine Aminotransferase 11 U/L (0-40); Albumin Level 4.1 g/dL (3.5-5.0); Alkaline Phosphatase 66 U/L (39-117); Anion Gap 16 (12-20); Aspartate Amino Transferase 17 U/L (5-37); Bilirubin Total 0.6 mg/dL (0.0-1.0); Blood Urea Nitrogen 21 mg/dL (9-16); Calcium 9.2 mg/dL (8.4-10.2); Carbon Dioxide 25 mmol/L (22-29); Chloride 105 mmol/L (96-108); Creatinine Clr Calc Pharmacy 52.1; Estimated Glomerular Filt Rate > 60; Glucose Random 84 mg/dL (60-115); Potassium 4.5 mmol/L (3.3-5.1); Sodium 141 mmol/L (135-145); Total Protein 7.2 g/dL (6.5-8.0)
[2022-09-15 13:45] LABS: SLIDE REVIEW VERIFIED
--- NOTE | 2022-09-15 15:09 | HO.HEMONCSCH ---
Addendum entered by Cassie Thomas 09/15/22 15:10: pt was referred to Cardiology. [facility] called asking to speak with Alma, all referrals must go through [facility]. Message was given to Alma on 09/15/22@ 3:10pm. Original Note: [facility] from Cardiology called for Alma. Referred to C
--- NOTE | 2022-09-15 16:13 | MHC.HEMONCMA ---
Pt was in for follow up. Clinical summary reviewed and updated, VSS. Labs were drawn. Pt to return in 1 month. Referral sent to Dr. Posada.
--- NOTE | 2022-09-16 09:21 | HO.HEMONCSCH ---
CT scan sent to [facility], being protocol.
--- NOTE | 2022-09-18 14:58 | HO.HEMONCSCH ---
Called pt and spoke with his in regards to appt for US drain and CT scan on 09/23/[address] following 1pm US, pt is aware. No aspirin for 3 days prior to appt was instructed to pt.
--- NOTE | 2022-09-29 09:12 | MHC.HEMONC ---
PET order left for Dorothy per Dr Marks request.
--- NOTE | 2022-09-29 13:06 | MHC.HEMONC ---
Pt's left VM on triage line, nurse called back, pt passed along message for Dr. Marks that the name of his Rad Oncologist at [facility] in the past was Dr. Caroline Morrow, when he was treated for prostate ca, and he'd like to work w/ her again. Nurse informed Dr. Marks, but after confirming w/ [facility] Sister Tasha, they stated this provider no longer works there full-time, only case operator now, and his provider would be Rad Onc Dr. Shetty. Dr. Marks spoke w/ pt and his , they said this would be fine to meet w/ Dr. Shetty for Radiation Tx consult. Dr. Marks said PET had been ordered, asked to have Rad Tx consult appt made w/ Dr. Shetty. Nurse passed along tast to REYNA Marquez, who would be calling to schedule consult.
--- NOTE | 2022-09-29 13:21 | HO.HEMONCSCH ---
Consult request for radiation was sent to [facility] with Dr. Shetty.
--- NOTE | 2022-09-30 11:00 | HO.HEMONCSCH ---
PET order and appt request faxed to [facility]. Awaiting on appt. date & time.
--- NOTE | 2022-10-01 13:21 | HO.HEMONCPA ---
PATIENT IS SCHEDULED FOR PET CT 10/06/22 AT 11:15AM
--- NOTE | 2022-10-02 12:39 | HO.HEMONCSCH ---
Pt's , Tashia, called, said they were told by [facility] that if pt has his PET scan done on Wed, 10/05, instead of 10/06, he could be seen earlier. Nurse replied that PET scans are only performed at [facility] on Tuesdays, as they are done by an outside vendor. Dr. Marks called pt back, also conferred w/ RT Dr. Shetty's office, they will try to book pt as soon as they can, but either way, will be contacting pt directly to notify them.
--- NOTE | 2022-10-05 14:55 | MHC.HEMONC ---
Pt will be r/s for PET until next Wednesday at 9:30 and then he will be able to go to [facility] at 1 pm. We will plan f/u once that is done. he will need teaching with MD styles.
--- NOTE | 2022-10-06 10:15 | HO.HEMONCPA ---
PATIENT IS RESCHEDULED FOR PET CT 10/13/22 AT 09:15AM
--- NOTE | 2022-10-13 15:44 | MHC.HEMONC ---
I made appt with [facility] for pt. They will see him on 10/22/22 at 2:30 pm. i left message for his to call them with insurance information. Patholofy to add lung panel to pathology per request of Dr Marks.
--- NOTE | 2022-10-14 15:08 | HO.HEMONCPA ---
No pa required for Denosumab. Drug covered under Medicare part B benefits.
--- NOTE | 2022-10-16 11:55 | MHC.HEMONC ---
I spoke to link assembler at GI and they will reach out to pt with GI appt to get colonoscopy booked.
--- NOTE | 2022-10-16 14:44 | MHC.HEMONC ---
I left a voice message for pt regarding GI trying to reach him to make appt for Consultation/Colonoscopy.
--- NOTE | 2022-10-19 10:15 | MHC.HEMONC ---
I spoke to pt Tashia. Celestino has Colonoscopy appt on 11/05/[address] Duarte. He will f/u in GI 11/11. No Procrit or Denosumab for now per Dr Marks. She will have f/u telehealth tomorrow with Dr Marks.
--- NOTE | 2022-10-20 10:22 | P.PNHO-ONC_ITS ---
Hem/Onc Clinic Telehealth - Telehealth Location of Provider rendering services: Oncology Office. Location of Patient: Home. Patient Identification confirmed using: Name, : Yes Telehealth Method: via telephone Patient verbally consented to billing insurance company: Yes Patient informed of any privacy concerns related to visit: Yes Primary Care Provider: Douglas Schultz PA-C Medical Summary - Medical Summary Date of Service: 10/20/22 Primary Care Provider: Douglas Schultz PA-C Medical Summary: DIAGNOSIS: MACROCYTIC ANEMIA. ACD. Dyserythropoeisis. CURRENT THERAPY: Procrit received: On 12/12, 01/12, and 02/17 and 05/15/22. Interval History Interval history: eClestino Gage is a pleasant 82 year old gentleman, with whom a tele visit was held, on account of the snowstorm. He tells me he is not doing very well. He has ongoing pain in the mid left chest wall. He feels a tender spot there. When he breaths in and leans forwarded, it get relieved. He grades the pain level as 5 on 1-10 scale. Tylenol slowed it down however he has to take 1 g every 5 hours, to keep it at bay. He had called complaining about pain in 1 of his teeth. It felt loose. He felt it was infected. He also noted a sinus infection. I started him on Augmentin 875 b.i.d. about a week ago. He feels short of breath on exertion. He has an occasional cough. No sputum. His energy level has not been rather low. He gets tired easily. Denies fever nor chills. No headache no dizziness. No abdominal pain nausea vomiting heartburn indigestion. Bowels are working. He denies diarrhea. No gross blood in the stools. Bowels are dark from the iron. His apetite is not good but he is trying to eat. He has lost weight. 5 Pounds. No dysuria or hematuria. He has had sciatica and right hip pain, for years. No focal weakness. He denies depression. No skin rashes nor pruritus. He has a busy lifestyle. They have a dog that they love, who keeps them active. They are taking him for walks. Previous history: He had a bone marrow exam done, on 09/18. The results: Pathology: Hypercellular, erythroid predominant marrow with diserythropoiesis. No increase in blasts or infiltrative process. Reduced storage iron. Flow cytometry is negative for a lymphoproliferative disorder or increased blasts. Cytogenetics and MDS fish panel are negative. PAST MEDICAL HISTORY: He mentioned that his hemoglobin has been trickling down over the years. Review of his labs in the computer revealed: 06/16, CBC: WBC 10.4, HGB 11, HCT 34.2, MCV 103.6, PLT 135. Ferritin: 184. B12 1130. Folate >20. Previous blood count: 04/23/2021 hemoglobin 10.9. 10/15/2020: Hemoglobin 11.9. 01/12/19: Hemoglobin 13. He has been taking half a iron tablet, every other day for the past couple of months. His blood pressure has been well controlled. He is off the lisinopril now. His blood pressure is normal now. FAMILY HISTORY: Denies any known heme Onc problems in the family. 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 He is . Has no children. He denies smoking. No alcohol. Review of Systems - Constitutional Reports system reviewed and no additional complaints, except as documented, Reports fatigue, Reports weakness, Reports weight loss, Denies fever(s) - Eyes Reports system reviewed and no additional complaints, except as documented - ENT Reports system reviewed and no additional complaints, except as documented, Reports sinus pain, Reports sinus pressure Comments: Infected tooth - Cardiovascular Reports system reviewed and no additional complaints, except as documented - Respiratory Reports no additional respiratory complaints - Gastrointestinal Reports system reviewed and no additional complaints, except as documented - Genitourinary Genitourinary: Reports no additional male genitourinary complaints - Musculoskeletal Reports system reviewed and no additional complaints, except as documented - Integumentary/Breasts Skin/Breast: Reports no additional skin complaints - Neurologic Reports system reviewed and no additional complaints, except as documented, Denies weakness - Psychiatric Reports system reviewed and no additional complaints, except as documented - Endocrine Reports no additional endocrine complaints - Hematologic/Lymphatic Reports system reviewed and no additional complaints, except as documented - Allergic/Immunologic Reports system reviewed and no additional complaints, except as documented Oncology Screenings - ECOG Performance Status ECOG Performance Status: 1 Home Medications and Allergies Home Medications Medication Instructions Recorded Confirmed Type ascorbic acid (vitamin C) 1,000 mg 1 g PO DAILY 07/30/21 09/15/22 History tablet (Vitamin C) aspirin 325 mg capsule 325 mg PO DAILY 07/30/21 09/15/22 History cholecalciferol (vitamin D3) 50 50 mcg PO DAILY 07/30/21 09/15/22 History mcg (2,000 unit) capsule (Vitamin D3) cyanocobalamin (vitamin B-12) 1,000 mcg PO DAILY 07/30/21 09/15/22 History 1,000 mcg capsule ferrous sulfate 325 mg (65 mg 32 mg PO Q OTHER DAY 07/30/21 09/15/22 History iron) tablet multivitamin 1 tab PO DAILY 07/30/21 09/15/22 History acetaminophen 500 mg tablet 500 mg PO Q6H pain 10/20/22 10/20/22 History Allergies Allergy/AdvReac Type Severity Reaction Status Date / Time No Known Allergies Allergy Verified 10/20/22 11:11 [No Known Allergies*] Exam Vital signs: Vital Signs Temp 97.8 F 09/15/22 13:24 Pulse 83 09/15/22 13:24 Resp 12 09/15/22 13:24 BP 122/64 09/15/22 13:24 Pulse Ox 94 09/15/22 13:24 O2 Del Method 09/15/22 13:24 Weight 65.7 kg BMI result Body Mass Index 21.4 - Constitutional Present: no acute distress - Routine HEENT Exam Head: Present: normal inspection Eye: Present: normal appearance ENT: Present: mucous membranes moist - Routine Neck Exam Present: full ROM - Routine Chest/Breast/Axilla Exam Chest wall: Present: tenderness - Routine Respiratory Exam Present: CTAB - Routine Cardiovascular Exam Cardiovascular: Present: RRR, S1, S2 - Routine Abdominal Exam Present: nontender - Routine Extremities Exam Present: nontender - Routine Back/Spine/Pelvis Exam Back/Spine: Present: full ROM - Routine Skin Exam Present: intact, normal turgor - Routine Neurological Exam Present: alert, oriented X3 - Detailed Neurological Exam: Coma Scale Eye Opening: Spontaneous (4) - Routine Psychiatric Exam Present: normal affect Data - Labs CBC & Chem 7: 10/26/22 09:43 10/26/22 09:43 Assessment and Plan Patient Active problem list reviewed?: Yes (1) Macrocytic anemia Status: Acute Assessment and plan: This is a pleasant 81-year-old gentleman with a history of macrocytic anemia. DIFFERENTIAL DIAGNOSIS: 1. B12 FOLATE DEFICIENCY: B12 LEVEL 1130. FOLATE: >20. 2. UNDERLYING MYELO INFILTRATIVE DISORDER: MDS can present with macrocytosis. Differential multiple myeloma. 3. THYROID DISEASE CAN GIVE RISE TO MACROCYTOSIS. 4. COPD: Can also cause increased red cell size. 5. MULTIFACTORIAL ANEMIA: With combined iron deficiency. Iron studies: 141/326/47/209. He has been taking half a iron tablet, every other day for the past month. I proceeded with further evaluation. Checked SIEP: no monoclonal spike. Checked LDH: 245. Checked TSH: 1.12 and T4. He is holding stable. His CBC reveals an elevated WBC count and thrombocytopenia. I was concerned about an underlying bone marrow disorder. He had a bone marrow exam done, on 09/18. He is here to review the results. Pathology: Hypercellular, erythroid predominant marrow with diserythropoiesis. No increase in blasts or infiltrative process. Reduced storage iron. Flow cytometry is negative for a lymphoproliferative disorder or increased blasts. Cytogenetics and MDS fish panel are negative. Review of his labs from 09/18, revealed: WBC 12.4, Hemoglobin of 9.8/29.8, PLT 136. 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 Patient has anemia of chronic disease related to stage III CKD. 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 Procrit would help with both the disorders. Details of the regimen including elevated blood pressure, elevated hemoglobin, headache dizziness, thrombosis were all addressed with him. He understood and was willing to proceed. He received a shot of Procrit on 09/25. Subsequently hemoglobin went up to above 12. His hemoglobin in October was 12.2. On 11/10 it was 12.0. He is doing very well. He received Procrit on 12/12 and 01/12 and 02/17. He has not required it since then. On 09/15, his Hemoglobin was: 11.1. His ferritin: 214. Previous Iron studies: 62/295/21/174. PLAN: He did not need to get Procrit. Will hold off on further Procrit injections, now that he has been diagnosed with lung cancer, with which it is relatively contraindicated. He will return in 1 week for a follow-up visit. Thanks, CC: Joe Schultz (2) Adenocarcinoma of left lung Status: Acute Assessment and plan: 82 year old gentleman who complained of left-sided chest pain. He had diminished breath sounds on the left base. Chest x-ray revealed: Small to moderate left pleural effusion with associated airspace opacity which could represent atelectasis or pneumonia. There may be mild pleural thickening at the periphery of the left upper hemithorax. I proceeded with a CT scan of the chest. This was done on 09/23 and revealed: 3.6 x 2.6 cm left upper lobe mass invading the chest wall pleura and mediastin al pleura suspicious for pulmonary malignancy. Additional areas of abnormal parietal pleural thickening in the left hemithorax suspicious for pleural metastatic disease. Recommend correlation with fluid cytology. Biopsy may be necessary for diagnosis. This was called to Dr. Marks at 8:30 AM on 09/29/2022. 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 Moderate nonsimple left pleural effusion suspicious for malignant effusion. Mild emphysema. Mild pulmonary fibrosis. 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 Consider referral to a vascular specialist. l then proceeded with diagnostic and therapeutic thoracentesis on the left side. Cytology revealed: Positive for malignant cells, consistent with adenocarcinoma of lung origin. Lung panel has been sent. PET scan from 10/13: 1. Extensive nodular masslike multifocal FDG avid pleural thickenings are present throughout the entire left hemithorax with most pronounced changes seen at anterior, medial aspect of the mid part of the left hemithorax with the dominant solid-appearing soft tissue mass measuring approximately 4.4 cm at its maximum transverse dimension with SUV max of 9.4, inseparable from the adjacent mediastinal pleura. Additional solid masslike FDG avid pleural thickenings are also present especially involving anterior inferior costophrenic sulcus, measures approximately 2.6 x 1.3 cm with SUV max of 7.3. In addition, multiloculated FDG avid pleural effusion is also present with most pronounced changes seen within the base of the pleural space. The findings are most consistent with either primary or metastatic pleural malignancy. 2. Partial collapse consolidation involving both left lower greater than upper lobes. 3. No FDG avid mediastinal and/or hilar or axillary or internal mammary lymphadenopathy or FDG avid disease within the contralateral right lung or pleural space. 4. Subcentimeter non-FDG avid nodular opacity within the superior segment of right lower lobe of the lung with underlying subpleural cystic changes. 5. Indeterminate moderately intense FDG avidity involving likely proximal ascending colon at right iliac fossa with SUV max of 6.5, for which direct visualization/colonoscopy is recommended for further clarification, if not recently performed. 6. Moderately intense diffuse increased FDG avidity throughout the entire axial skeleton as well as both proximal femur, may represent bone marrow inf iltrative/replacement process versus physiologic hyperplastic changes. 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 I reviewed the PET scan with radiology. He has concern for bone marrow metastases. PLAN: Will proceed with CT scan guided bone marrow biopsy of the iliac crest. This will be scheduled for 10/26, by IR. Meanwhile he has an appointment with the dentist on 10/22. Will then decide if he needs the tooth to be pulled. He will return after the biopsy to get started on the treatment hopefully next week. Will arrange for Port-A-Cath placement by IR. Will plan further management based upon the above results. Treat with carboplatin, Alimta and pembrolizumab, pending results of the lung panel. He will return in one week for a follow-up visit. Thank you, (3) Abnormal chest x-ray Status: Acute Assessment and plan: 82 year old gentleman who complained of left-sided chest pain. He had diminished breath sounds on the left base. Chest x-ray revealed: Small to moderate left pleural effusion with associated airspace opacity which could represent atelectasis or pneumonia. There may be mild pleural thickening at the periphery of the left upper hemithorax. I proceeded with a CT scan of the chest. This was done on 09/23 and revealed: 3.6 x 2.6 cm left upper lobe mass invading the chest wall pleura and mediastinal pleura suspicious for pulmonary malignancy. Additional areas of abnormal parietal pleural thickening in the left hemithorax suspicious for pleural metastatic disease. Recommend correlation with fluid cytology. Biopsy may be necessary for diagnosis. This was called to Dr. Marks at 8:30 AM on 09/29/2022. 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 Moderate nonsimple left pleural effusion suspicious for malignant effusion. Mild emphysema. Mild pulmonary fibrosis. 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 Consider referral to a vascular specialist. l then proceeded with diagnostic and therapeutic thoracentesis on the left side. Cytology revealed: Positive for malignant cells, consistent with adenocarcinoma of lung origin. Lung panel has been sent. PET scan from 10/13: 1. Extensive nodular masslike multifocal FDG avid pleural thickenings are present throughout the entire left hemithorax with most pronounced changes seen at anterior, medial aspect of the mid part of the left hemithorax with the dom inant solid-appearing soft tissue mass measuring approximately 4.4 cm at its maximum transverse dimension with SUV max of 9.4, inseparable from the adjacent mediastinal pleura. Additional solid masslike FDG avid pleural thickenings are also present especially involving anterior inferior costophrenic sulcus, measures approximately 2.6 x 1.3 cm with SUV max of 7.3. In addition, multiloculated FDG avid pleural effusion is also present with most pronounced changes seen within the base of the pleural space. The findings are most consistent with either primary or metastatic pleural malignancy. 2. Partial collapse consolidation involving both left lower greater than upper lobes. 3. No FDG avid mediastinal and/or hilar or axillary or internal mammary lymphadenopathy or FDG avid disease within the contralateral right lung or pleural space. 4. Subcentimeter non-FDG avid nodular opacity within the superior segment of right lower lobe of the lung with underlying subpleural cystic changes. 5. Indeterminate moderately intense FDG avidity involving likely proximal ascending colon at right iliac fossa with SUV max of 6.5, for which direct visualization/colonoscopy is recommended for further clarification, if not recently performed. 6. Moderately intense diffuse increased FDG avidity throughout the entire axial skeleton as well as both proximal femur, may represent bone marrow infiltrative/replacement process versus physiologic hyperplastic changes. 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 Then diagnostic and therapeutic thoracentesis on the left side: Positive for malignant cells consistent with adenocarcinoma of lung origin PLAN: Will proceed with a bone marrow biopsy under CT scan guidance by IR. Will plan further management based upon the above results. He will return in a week for a follow-up visit. Thank you, - Time Spent With Patient Time Spent with Patient (in minutes): 30
--- NOTE | 2022-10-20 11:41 | HO.HEMONCSCH ---
CT biopsy aspirate bone marrow in pending status in radiology. Order entered in Order Furniture Mover
--- NOTE | 2022-10-20 11:47 | MHC.HEMONC ---
I gave Dorothy order for BM aspiration and bx per Dr Marks following her Telehealth with pt. Radiology aware and has placed in pending. I called pt , Tashia and told her no more Aspirin (pt took today). She stated they never picked up Naproxen so he is not on that . We will call pt when we have date and time.
--- NOTE | 2022-10-20 12:57 | MHC.HEMONC ---
Port order left for Lopez has information for PA chemotherapy drugs.
--- NOTE | 2022-10-20 14:13 | HO.HEMONCPA ---
NO PA REQUIRED FOR EMEND, PEMBROLIZUMAB,PEMETREXED,CARBPLATIN, AND NEULASTA. DRUGS COVERED UNDER MEDICARE PART B BENEFITS
--- NOTE | 2022-10-20 14:50 | MHC.HEMONC ---
Pt's called-notified of upcoming chemo therapy appointment on 10/29/22 at 1030 pending PA and biopsy results. 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 Instructed to start taking dexamethasone one day prior to chemotherapy and for 2 days after. Pt to receive B-12 injection on day of biopsy- aware
--- NOTE | 2022-10-22 13:38 | MHC.HEMONCMA ---
LM on for patient to call back office to give information on appt made with Radiology [facility] [id number], for port insertion for 10/29/22 at 8:30am and no aspirin or naproxen for 3 days prior.
--- NOTE | 2022-10-23 09:26 | MHC.HEMONC ---
Pt called with appointment update-Pt scheduled to have pre chemo lab draw on 10/26/22 with B-12 injection. Pt scheduled for port insertion on 10/29/22, first chemo appointment scheduled for 10/30/22-pt and aware
[2022-10-26] MEDS: Cyanocobalamin (Vitamin B-12) 1,000 MCG/ML VIAL 1000 MCG IM (09:46)
[2022-10-26 10:04] LABS: Hematocrit 29.6 % (42.0-52.0); Mean Corpuscular HGB Conc 30.4 g/dl (31.0-36.0); Mean Corpuscular Volume 95.5 fL (80.0-98.0); Mean Platelet Volume 12.2 fL (9.4-12.4); Red Cell Distribution Width 20.7 % (11.0-16.0); White Blood Count 8.9 X10*3/uL (4.8-10.8)
[2022-10-26 10:05] LABS: NRBC Pct Auto 5.3 /100WBC (0.0-0.2); Platelet Count 85 X10*3/uL (160-400)
--- NOTE | 2022-10-26 10:13 | MHC.HEMONC ---
Pt here for B-12 injection and pre chemo lab draw. Blood drawn by barmaid-specimen to lab. B-12 injection given in left arm tolerated well. Pt states his bones hurt all over-Dr Marks into see pt. Calendar given with next appointment on 10/30/22
[2022-10-26 10:31] LABS: Atypical Lymph Absolute Manual 0.2 x10*3/uL; Atypical Lymphs Percent Manual 2 % (0-6); Band Neutrophils Percent 1 % (3-5); Lymphocytes Percent Manual 11 % (20-40); Metamyelocytes Absolute 0.1 X10*3/uL; Metamyelocytes Percent 1 %; Monocytes Absolute Manual 0.8 X10*3/uL (0.1-1.2); Monocytes Percent Manual 9 % (2-11); Myelocytes Absolute 0.1 X10*/uL; Myelocytes Percent 1 %; Neutrophils Absolute Manual 6.8 X10*3/uL (2.0-8.3); Nucleated Red Blood Cells 9 /100WBC (0-0)
[2022-10-26 10:34] LABS: Platelet Estimate DECREASED (NORMAL)
[2022-10-26 10:35] LABS: Acanthocytes 1+ (0-2) /OIF; Hypochromasia 1+ (5-14) /OIF; Macrocytosis 1+ (5-14) /OIF; Microcytosis 1+ (5-14) /OIF; Platelet Morphology Comment NORM; Polychromasia 1+ (0-2) /OIF; RBC Morphology NOTED
[2022-10-26 10:36] LABS: Alanine Aminotransferase 27 U/L (0-40); Albumin Level 3.7 g/dL (3.5-5.0); Alkaline Phosphatase 89 U/L (39-117); Anion Gap 17 (12-20); Aspartate Amino Transferase 43 U/L (5-37); Bilirubin Total 1.2 mg/dL (0.0-1.0); Calcium 8.8 mg/dL (8.4-10.2); Carbon Dioxide 25 mmol/L (22-29); Chloride 99 mmol/L (96-108); Creatinine Clr Calc Pharmacy 50.6; Estimated Glomerular Filt Rate > 60; Glucose Random 108 mg/dL (60-115); Sodium 137 mmol/L (135-145); Total Protein 7.5 g/dL (6.5-8.0)
[2022-10-26 11:45] LABS: Neutrophils Percent Manual 75 % (45-73)
[2022-10-26 12:05] LABS: Blood Urea Nitrogen 13 mg/dL (9-16)
[2022-10-26 12:11] LABS: SLIDE REVIEW VERIFIED
[2022-10-26 12:12] LABS: Ferritin 1806 ng/mL (20-250)
--- NOTE | 2022-10-26 16:13 | MHC.HEMONC ---
Voice Message left with instructions for pt to take dexamethasone day before scheduled chemotherapy (which is scheduled for 10/30/22 and for the 2 days following chemotherapy 11/01/22 and 11/02/22)
[2022-10-30 10:05] VITALS: BP 143/65; PULSE 94; RESP 18; TEMP 36.6; O2SAT 93
[2022-10-30 10:46] LABS: HBS Num1 0.31 mIU/mL (0-7.99); HBc Num1 0.34 S/CO (0.00-0.79); HBsAGNum1 0.64 S/CO (0.00-0.99); Hepatitis B Core Antibody Nonreactive (Nonreactive); Hepatitis B Surface Antigen Negative (Negative); ~Hepatitis B Surface Antibody NONREACTIVE (Nonreactive)
[2022-10-30 10:47] LABS: Thyroid Stimulating Hormone 1.56 uIU/mL (0.32-4.0)
[2022-10-30] MEDS: Acetaminophen 325 MG TABLET 650 MG PO (11:31)
[2022-10-30] MEDS: dexAMETHasone sod phosphate/NS 12 MG/50 ML PIGGYBACK 200 MG IV (11:33)
[2022-10-30] MEDS: diphenhydrAMINE HCL 50 MG/ML VIAL 25 MG IVPUSH (11:33)
--- NOTE | 2022-10-30 12:12 | MHC.HEMONCSW ---
Addendum entered by Grazyna Jimenez 10/30/22 14:28: Dr Marks spoke with Pt about completing the Molst, and she did not believe he was ready at this point> Original Note: SW sat in on the chemotherapy teaching for Lopez with Dr. Marks. Afterward, she suggested that maybe he would benefit from the molst.
--- NOTE | 2022-10-30 12:16 | P.PNHO-ONC_ITS ---
Medical Summary - Medical Summary Date of Service: 10/30/22 Chief complaint: Follow-up for: 1. Non-small cell lung carcinoma. 2. RAEB. Primary Care Provider: Douglas Schultz PA-C Medical Summary: DIAGNOSIS: 1. MACROCYTIC ANEMIA. ACD. Dyserythropoeisis. 2. Non small cell Lung Cancer. CURRENT THERAPY: 1. Procrit received:On 12/12, 01/12, and 02/17 and 05/15/22. Off it now. 2. Starting on 1st cycle of chemotherapy with Carbo/Alimta and Pembrolizumab. Interval History Interval history: Celestino Gage is a pleasant 82 year old gentleman, here for a follow-up visit, and for chemotherapy. He tells me he is doing better. He saw the dentist. He took 4 teeth out. Two of the teeth were infected into the gums were infected. He completed the course of Augmentin. Subsequently he has noticed that the aches and pains in his face and chest have resolved. His energy level has not been too low. Denies fever nor chills. No headache no dizziness. He gets short winded on exertion but he is still trying to walk around the house and climb stairs. No abdominal pain nausea vomiting heartburn indigestion. Bowels are working. He denies diarrhea. No gross blood in the stools. Bowels are dark from the iron. His apetite has improved. He actually ate PBJ sandwich, 3 slices of pizza and egg salad sandwich along with soda, water and applesauce. No dysuria or hematuria. He has had sciatica and right hip pain, for years. No focal weakness. He denies depression. No skin rashes nor pruritus. He has ongoing pain in the mid left chest wall. He feels a tender spot there. When he breaths in and leans forwarded, it get relieved. He grades the pain level as 5 on 1-10 scale. Tylenol slowed it down however he has to take 1 g every 5 hours, to keep it at bay. He had called complaining about pain in 1 of his teeth. It felt loose. He felt it was infected. He also noted a sinus infection. I started him on Augmentin 875 b.i.d. about a week ago. He feels short of breath on exertion. He has an occasional cough. No sputum. Previous history: He had a bone marrow exam done, on 09/18. The results: Pathology: Hypercellular, erythroid predominant marrow with diserythropoiesis. No increase in blasts or infiltrative process. Reduced storage iron. Flow cytometry is negative for a lymphoproliferative disorder or increased blasts. Cytogenetics and MDS fish panel are negative. PAST MEDICAL HISTORY: He mentioned that his hemoglobin has been trickling down over the years. Review of his labs in the computer revealed: 06/16, CBC: WBC 10.4, HGB 11, HCT 34.2, MCV 103.6, PLT 135. Ferritin: 184. B12 1130. Folate >20. Previous blood count: 04/23/2021 hemoglobin 10.9. 10/15/2020: Hemoglobin 11.9. 01/12/19: Hemoglobin 13. He has been taking half a iron tablet, every other day for the past couple of months. His blood pressure has been well controlled. He is off the lisinopril now. His blood pressure is normal now. FAMILY HISTORY: Denies any known heme Onc problems in the family. 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 He is . Has no children. He denies smoking. No alcohol. He has a busy lifestyle. They have a dog that they love, who keeps them active. They are taking him for walks. Review of Systems - Constitutional Reports system reviewed and no additional complaints, except as documented, Reports weight gain, Denies anorexia, Denies fatigue, Denies fever(s), Denies lack of energy, Denies malaise, Denies night sweats, Denies poor appetite - Eyes Reports system reviewed and no additional complaints, except as documented - ENT Reports system reviewed and no additional complaints, except as documented - Cardiovascular Reports system reviewed and no additional complaints, except as documented - Respiratory Reports no additional respiratory complaints - Gastrointestinal Reports system reviewed and no additional complaints, except as documented - Genitourinary Genitourinary: Reports no additional male genitourinary complaints - Musculoskeletal Reports system reviewed and no additional complaints, except as documented - Integumentary/Breasts Skin/Breast: Reports no additional skin complaints - Neurologic Reports system reviewed and no additional complaints, except as documented, R eports weakness - Psychiatric Reports system reviewed and no additional complaints, except as documented - Endocrine Reports no additional endocrine complaints - Hematologic/Lymphatic Reports system reviewed and no additional complaints, except as documented - Allergic/Immunologic Reports system reviewed and no additional complaints, except as documented [facility] Medical History: Medical History (Last Reviewed 11/06/22 @ 09:37 by Hailey Sapp MD) BPH (benign prostatic hyperplasia) COVID-19 vaccine series completed Elevated cholesterol H/O prostate cancer HTN (hypertension) Hypothyroid Non-small cell lung cancer (NSCLC) Port-A-Cath in place PVD (peripheral vascular disease) Functional capacity: independent ambulation Patient : No Surgical History: Surgical History (Last Reviewed 11/06/22 @ 09:37 by Hailey Sapp MD) H/O colonoscopy History of bone marrow biopsy History of carotid endarterectomy History of thoracentesis Hx of cataract extraction Hx of prostatectomy Hx of umbilical hernia repair Social History: Social History (Last Reviewed 10/20/22 @ 11:16 by Tawanna Daley RN) Living Situation History: Household Members: Spouse Housing: House Are you a primary animal care technician to a significant other at home: No Do you presently have visiting nurse or other home services: No Tobacco History: Patient Tobacco Use Status: Never used Tobacco Advance Directives: Advance Directives Date on File: 09/18/21 Occupation Assessmet: service: No Current occupational status: retired Oncology Screenings - ECOG Performance Status ECOG Performance Status: 1 Home Medications and Allergies Current Medications: Current Medications Acetaminophen (Acetaminophen 325 Mg Tablet) 650 mg PO ONCE CAROL Stop: 10/30/22 23:59 Last Admin: 10/30/22 11:31 Dose: 650 mg Cyanocobalamin (Cyanocobalamin (Vitamin B-12) 1,000 Mcg/Ml Vial) 1,000 mcg IM ONCE CAROL Stop: 10/30/22 23:59 Diphenhydramine HCl (Diphenhydramine Hcl 50 Mg/Ml Vial) 25 mg IVPUSH ONCE CAROL Stop: 10/30/22 23:59 Last Admin: 10/30/22 11:33 Dose: 25 mg Heparin Sodium (Porcine) (Heparin Sodium,Porcine Flush 500 Unit/5 Ml Syringe) 500 unit IVFLUSH ONCE CAROL Stop: 10/30/22 23:59 Dexamethasone Sodium Phosphate (Decadron) 12 mg in 50 mls @ 200 mls/hr IV ONCE CAROL Stop: 10/30/22 23:59 Last Admin: 10/30/22 11:33 Dose: 200 mls/hr Ondansetron HCl (Zofran) 16 mg in 50 mls @ 200 mls/hr IV ONCE CAROL Stop: 10/30/22 23:59 Last Admin: 10/30/22 11:32 Dose: 200 mls/hr Carboplatin 380 mg/ Sodium (Chloride) 288 mls @ 576 mls/hr IV ONCE CAROL Stop: 10/30/22 23:59 Pembrolizumab 200 mg/ Sodium (Chloride) 58 mls @ 116 mls/hr IV ONCE CAROL Stop: 10/30/22 23:59 Pemetrexed 500 mg/ Pemetrexed (160 mg/ Sodium Chloride) 100 mls @ 600 mls/hr IV ONCE CAROL Stop: 10/30/22 23:59 Home Medications Medication Instructions Recorded Confirmed Type ascorbic acid (vitamin C) 1,000 mg 1 g PO DAILY 07/30/21 11/06/22 History tablet (Vitamin C) aspirin 325 mg capsule 325 mg PO DAILY 07/30/21 11/06/22 History cholecalciferol (vitamin D3) 50 50 mcg PO DAILY 07/30/21 11/06/22 History mcg (2,000 unit) capsule (Vitamin D3) cyanocobalamin (vitamin B-12) 1,000 mcg PO DAILY 07/30/21 11/06/22 History 1,000 mcg capsule ferrous sulfate 325 mg (65 mg 32 mg PO Q OTHER DAY 07/30/21 11/06/22 History iron) tablet multivitamin 1 tab PO DAILY 07/30/21 11/06/22 History acetaminophen 500 mg tablet 500 mg PO Q6H PRN Pain 10/20/22 11/06/22 History atorvastatin 40 mg tablet 40 mg PO BEDTIME 11/06/22 11/06/22 History ondansetron 8 mg disintegrating 8 mg PO Q8H PRN Nausea 11/06/22 11/06/22 History tablet Allergies Allergy/AdvReac Type Severity Reaction Status Date / Time No Known Allergies Allergy Verified 10/29/22 07:14 [No Known Allergies*] Exam Vital signs: Vital Signs Temp 97.8 F 10/30/22 10:05 Pulse 94 10/30/22 10:05 Resp 18 10/30/22 10:05 BP 143/65 H 10/30/22 10:05 Pulse Ox 93 10/30/22 10:05 O2 Del Method Room Air 10/30/22 10:05 Weight 65.7 kg BMI result Body Mass Index 21.4 - Constitutional Present: no acute distress - Routine HEENT Exam Head: Present: normal inspection Eye: Present: normal appearance ENT: Present: mucous membranes moist - Routine Neck Exam Present: full ROM - Routine Chest/Breast/Axilla Exam Chest wall: Present: tenderness - Routine Respiratory Exam Present: CTAB - Routine Cardiovascular Exam Cardiovascular: Present: RRR, S1, S2 - Routine Abdominal Exam Present: nontender - Routine Extremities Exam Present: nontender - Routine Back/Spine/Pelvis Exam Back/Spine: Present: full ROM - Routine Skin Exam Present: intact, normal turgor - Routine Neurological Exam Present: alert, oriented X3 - Detailed Neurological Exam: Coma Scale Eye Opening: Spontaneous (4) - Routine Psychiatric Exam Present: normal affect Data - Labs CBC & Chem 7: 10/26/22 09:43 10/26/22 09:43 Assessment and Plan Patient Active problem list reviewed?: Yes (1) Macrocytic anemia Status: Acute Assessment and plan: This is a pleasant 81-year-old gentleman with a history of macrocytic anemia. DIFFERENTIAL DIAGNOSIS: 1. B12 FOLATE DEFICIENCY: B12 LEVEL 1130. FOLATE: >20. 2. UNDERLYING MYELO INFILTRATIVE DISORDER: MDS can present with macrocytosis. Differential multiple myeloma. 3. THYROID DISEASE CAN GIVE RISE TO MACROCYTOSIS. 4. COPD: Can also cause increased red cell size. 5. MULTIFACTORIAL ANEMIA: With combined iron deficiency. Iron studies: 141/326/47/209. He has been taking half a iron tablet, every other day for the past month. I proceeded with further evaluation. Checked SIEP: no monoclonal spike. Checked LDH: 245. Checked TSH: 1.12 and T4. He is holding stable. His CBC reveals an elevated WBC count and thrombocytopenia. I was concerned about an underlying bone marrow disorder. He had a bone marrow exam done, on 09/18. He is here to review the results. Pathology: Hypercellular, erythroid predominant marrow with diserythropoiesis. No increase in blasts or infiltrative process. Reduced storage iron. Flow cytometry is negative for a lymphoproliferative disorder or increased blasts. Cytogenetics and MDS fish panel are negative. Review of his labs from 09/18, revealed: WBC 12.4, Hemoglobin of 9.8/29.8, PLT 136. 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 Patient has anemia of chronic disease related to stage III CKD. 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 Procrit would help with both the disorders. Details of the regimen including elevated blood pressure, elevated hemoglobin, headache dizziness, thrombosis were all addressed with him. He understood and was willing to proceed. He received a shot of Procrit on 09/25. Subsequently hemoglobin went up to above 12. His hemoglobin in October was 12.2. On 11/10 it was 12.0. He is doing very well. He received Procrit on 12/12 and 01/12 and 02/17. He has not required it since then. On 09/15, his Hemoglobin was: 11.1. His ferritin: 214. Previous Iron studies: 62/295/21/174. PLAN: He did not need to get Procrit. Will hold off on further Procrit injections, now that he has been diagnosed with lung cancer, with which it is relatively contraindicated. He will return in 1 week for a follow-up visit. Thanks, CC: Joe Schultz (2) Adenocarcinoma of left lung Status: Acute Assessment and plan: 82 year old gentleman who complained of left-sided chest pain. He had diminished breath sounds on the left base. Chest x-ray revealed: Small to moderate left pleural effusion with associated airspace opacity which could represent atelectasis or pneumonia. There may be mild pleural thickening at the periphery of the left upper hemithorax. I proceeded with a CT scan of the chest. This was done on 09/23 and revealed: 3.6 x 2.6 cm left upper lobe mass invading the chest wall pleura and mediastin al pleura suspicious for pulmonary malignancy. Additional areas of abnormal parietal pleural thickening in the left hemithorax suspicious for pleural metastatic disease. Recommend correlation with fluid cytology. Biopsy may be necessary for diagnosis. This was called to Dr. Marks at 8:30 AM on 09/29/2022. 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 Moderate nonsimple left pleural effusion suspicious for malignant effusion. Mild emphysema. Mild pulmonary fibrosis. 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 Consider referral to a vascular specialist. l then proceeded with diagnostic and therapeutic thoracentesis on the left side. Cytology revealed: Positive for malignant cells, consistent with adenocarcinoma of lung origin. Lung panel has been sent. PET scan from 10/13: 1. Extensive nodular masslike multifocal FDG avid pleural thickenings are present throughout the entire left hemithorax with most pronounced changes seen at anterior, medial aspect of the mid part of the left hemithorax with the dominant solid-appearing soft tissue mass measuring approximately 4.4 cm at its maximum transverse dimension with SUV max of 9.4, inseparable from the adjacent mediastinal pleura. Additional solid masslike FDG avid pleural thickenings are also present especially involving anterior inferior costophrenic sulcus, measures approximately 2.6 x 1.3 cm with SUV max of 7.3. In addition, multiloculated FDG avid pleural effusion is also present with most pronounced changes seen within the base of the pleural space. The findings are most consistent with either primary or metastatic pleural malignancy. 2. Partial collapse consolidation involving both left lower greater than upper lobes. 3. No FDG avid mediastinal and/or hilar or axillary or internal mammary lymphadenopathy or FDG avid disease within the contralateral right lung or pleural space. 4. Subcentimeter non-FDG avid nodular opacity within the superior segment of right lower lobe of the lung with underlying subpleural cystic changes. 5. Indeterminate moderately intense FDG avidity involving likely proximal ascending colon at right iliac fossa with SUV max of 6.5, for which direct visualization/colonoscopy is recommended for further clarification, if not recently performed. 6. Moderately intense diffuse increased FDG avidity throughout the entire axial skeleton as well as both proximal femur, may represent bone marrow inf iltrative/replacement process versus physiologic hyperplastic changes. 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 He has an appointment next for colonoscopy. I reviewed the PET scan with radiology. He has concern for bone marrow metastases. l proceeded with CT scan guided bone marrow biopsy of the iliac crest. This was done on 10/26, by IR. Pathology: Hypercellular marrow with 90% cellularity. Dysplastic trilineage hematopoiesis. 5-10% blasts. Molecular testing is pending. He had the Port-A-Cath placed by IR on 10/29. My plan is to treat with Carboplatin, Alimta and pembrolizumab, pending results of the lung panel. He will start treatment today. PLAN: In view of the recent bone marrow findings, resulting in anemia and thrombocyto penia, I have elected to use dose reduction. Will use 75 percent dose of Alimta, and dose reduce carbo according to the renal function. He will return in one week for labs and hydration. He will return in 3 weeks for a follow-up visit. I discussed code status with him today. He will think it over and let me know of his decision next week. For now, his is the healthcare proxy. Thank you, (3) Abnormal chest x-ray Status: Acute Assessment and plan: 82 year old gentleman who complained of left-sided chest pain. He had diminished breath sounds on the left base. Chest x-ray revealed: Small to moderate left pleural effusion with associated airspace opacity which could represent atelectasis or pneumonia. There may be mild pleural thickening at the periphery of the left upper hemithorax. I proceeded with a CT scan of the chest. This was done on 09/23 and revealed: 3.6 x 2.6 cm left upper lobe mass invading the chest wall pleura and mediastinal pleura suspicious for pulmonary malignancy. Additional areas of abnormal parietal pleural thickening in the left hemithorax suspicious for pleural metastatic disease. Recommend correlation with fluid cytology. Biopsy may be necessary for diagnosis. This was called to Dr. Marks at 8:30 AM on 09/29/2022. 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 Moderate nonsimple left pleural effusion suspicious for malignant effusion. Mild emphysema. Mild pulmonary fibrosis. 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 Consider referral to a vascular specialist. l then proceeded with diagnostic and therapeutic thoracentesis on the left side. Cytology revealed: Positive for malignant cells, consistent with adenocarcinoma of lung origin. Lung panel has been sent. PET scan from 10/13: 1. Extensive nodular masslike multifocal FDG avid pleural thickenings are present throughout the entire left hemithorax with most pronounced changes seen at anterior, medial aspect of the mid part of the left hemithorax with the dominant solid-appearing soft tissue mass measuring approximately 4.4 cm at its maximum transverse dimension with SUV max of 9.4, inseparable from the adjacent mediastinal pleura. Additional solid masslike FDG avid pleural thickenings are also present especially involving anterior inferior costophrenic sulcus, measures approximately 2.6 x 1.3 cm with SUV max of 7.3. In addition, multiloculated FDG avid pleural effusion is also present with most pronounced changes seen within the base of the pleural space. The findings are most consistent with either primary or metastatic pleural malignancy. 2. Partial collapse consolidation involving both left lower greater than upper lobes. 3. No FDG avid mediastinal and/or hilar or axillary or internal mammary lymphadenopathy or FDG avid disease within the contralateral right lung or pleural space. 4. Subcentimeter non-FDG avid nodular opacity within the superior segment of right lower lobe of the lung with underlying subpleural cystic changes. 5. Indeterminate moderately intense FDG avidity involving likely proximal ascending colon at right iliac fossa with SUV max of 6.5, for which direct visualization/colonoscopy is recommended for further clarification, if not re cently performed. 6. Moderately intense diffuse increased FDG avidity throughout the entire axial skeleton as well as both proximal femur, may represent bone marrow infiltrative/replacement process versus physiologic hyperplastic changes. 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 Then diagnostic and therapeutic thoracentesis on the left side: Positive for malignant cells consistent with adenocarcinoma of lung origin Bone marrow biopsy under CT scan guidance by IR was done on 10/26. It revealed RAEB. He will return in 3 weekS for a follow-up visit. Thank you, - Time Spent With Patient Time Spent with Patient (in minutes): 30
--- NOTE | 2022-10-30 15:54 | MHC.HEMONC ---
Pt here for C1D1 Pemetrexed, Pembrolizumab, Carboplatin. Labs drawn 10/26/22 reviewed-okay to receive treatment today. TSH and Hep B drawn by granulating machine operator-specimen to lab. Dr Marks into see pt. Chemo teach given, possible side effects reviewed. Educational literature given on Pemetrexed, Pembrolizumab and Carboplatin. Chemotherapy and you book reviewed with and pt. Nutrition and hydration expectations discussed. Reviewed when to call provider, telephone numbers given. Consent for chemotherapy obtained. All questions answered. Pt states he took dexamethasone yesterday as directed and will take again tomorrow and day after. Pt states he is taking folic acid as ordered#24 angio inserted in left forearm with blood return noted. Pt has newly placed port in right upper chest(will use at next chemotherapy appointment) Pre-medicated with tylenol, decadron, benadryl, zofran. Pemetrexed, Pembrolizumab,Carboplatin given as ordered-tolerated well. Peripheral IV removed-no edema or redness at site. Discharge packet given with next appointment scheduled. Pt to return next Wednesday11/06/22 for repeat labs. Instructed to call with any side effects or concerns-verbalizes understanding of information given
--- NOTE | 2022-11-06 11:00 | MHC.HEMONC ---
Pt currently in ED for evaluation-appointment cancelled for today
--- NOTE | 2022-11-09 16:33 | MHC.HEMONC ---
Casandra from case management called. Pt is going to rehab and wanted to know if his chemo treatments would be on hold while in rehab? This nurse spoke with Dr Marks chemo will be on hold until patient is discharged from rehab. will call when pt is discharged. Chemo for 11/20/22 is canceled.
--- NOTE | 2022-11-16 11:47 | MHC.HEMONC ---
Patient is currently at [facility]- (p)[phone]- Spoke to nurse Abdi and requested most recent lab work to be faxed to our department.
--- NOTE | 2022-11-17 08:26 | MHC.HEMONC ---
Triage call-Call placed to [facility]-spoke with dehydration unit operator Shruthi who states pt had blood work drawn today 11/17/22 -results will not be available until tonight or tomorrow. Per Shruthi facility will fax over results to us tonight or tomorrow when available
--- NOTE | 2022-11-17 12:55 | MHC.HEMONC ---
Addendum entered by Vera Tijerina RN 11/17/22 14:08: Per Dr Marks pt not to receive procrit secondary to diagnosis- called and notified Original Note: Triage call-received call from [facility] requesting Procrit order for pt who is currently in rehab. Last hgb 7.8. Labs repeated today with pending results. Dr Marks notified
--- NOTE | 2022-11-24 09:51 | MHC.HEMONCSW ---
Addendum entered by Grazyna Jimenez 11/24/22 11:16: Rec'd call from Danae at [facility] - she indicated that as long as there is another correction reason for them to be there they will do the blood draws. She said she will put it back on the regular schedule. Call back to Myr[facility] to update her on the above info. She said that was fine except when they stop coming as the nurse said it is not forever. Addendum entered by Grazyna Jimenez 11/24/22 10:52: Call to [facility] to inquire about in home blood draw - msg left for Danae. Addendum entered by Grazyna Jimenez 11/24/22 09:58: Call to the home to ask Tashia which VNA is coming out-left message. Original Note: Call to Pt's Tashia to see how he is doing post d/c from rehab. She said he's doing good. She was curious about who can draw his blood at home. The VNA will do it this Wed and next, but said they don't do it normally and wondered about a mobile draw. Attempts to call [facility] to see if they are servicing the PT, but the # doesn't ring.
--- NOTE | 2022-12-02 14:54 | MHC.HEMONC ---
Addendum entered by Angel Padilla RN 12/02/22 16:32: Nurse took t/c from pt's VNA Nurse Sushma of [facility], reported that pt was tachy in the 120s, tempt of 99.2, has been having a lot of pain, seems dry, reports he has poor PO intake. Nurse replied Dr. Marks will be updated, she will reach out to pt if she feels he needs attention sooner than his upcoming Onc f/u appt on 12/07/22. Sushma also mentioned that pt might benefit from their palliative care [employer], Dr. Marks would need to make a referral for this. She also pointed out that pt doesn't really have a skilled need for VNA services right now, so unless she does want to make palliative care referral for [facility], pt will no longer be able to get labs drawn by [facility]. Dr. Marks would need to send referral for [facility] draw to do home labs. Nurse updated Dr. Marks. Original Note: Nurse took t/c from Danae of [facility], . who reported that pt had blood drawn at home today and his Platelet Count is 16. Nurse noted that pt's labs from 11/17 before d/c from rehab was apparently 39, Danae was able to read note from rehab to inform this nurse that pt apparently received 3 units PRBC and 2 doses of platelets while he wasa t rehab, then he was d/c'd home on 11/20. Nurse notified her that pt is sched for f/u w/ Dr. Marks on 12/07/22. Nurse to notify Dr. Marks of pt's current Platelet count when she returns to office on 12/03/22.
--- NOTE | 2022-12-04 14:59 | MHC.HEMONC ---
Verbal order given (per Dr Marks) to [facility] for Palliative Provider and care to start with patient as he was receiving only VNA.
--- NOTE | 2022-12-07 11:13 | P.PNHO-ONC_ITS ---
Medical Summary - Medical Summary Date of Service: 12/07/22 Chief complaint: FOLLOW-UP FOR: 1. LUNG CANCER. 2. RAEB. Primary Care Provider: Douglas Schultz PA-C Medical Summary: DIAGNOSIS: 1. MACROCYTIC ANEMIA. ACD. Dyserythropoeisis. 2. Non small cell Lung Cancer. CURRENT THERAPY: 1. Procrit received:On 12/12, 01/12, and 02/17 and 05/15/22. Off it now. 2. Recieved 1st cycle of chemotherapy with Carbo/Alimta and Pembrolizumab on 10/30. Interval History Interval history: Celestino Gage is a pleasant 82 year old gentleman, here for a follow-up visit. He had chemotherapy, on 10/30. He was subsequently, admitted to the hospital on 11/05. He was discharged 11/10. Discharge summary: Patient was admitted due to nausea vomiting diarrhea and pancytopenia: Possible above symptoms are related to chemotherapy. Patient did not had any nausea vomiting and diarrhea afterwards and instead has constipated - which is being treated with laxatives. oxycodone adjusted. monitor for constipation closely by the oxycodone. continue laxatives- hold if patient develops diarrhea. pancytopenia: Seems to be improving- patient received 3 PRBC and 2 units of platelets during this admission: H&H is stable around 7.7, denies any gross bleeding. Platelets are in 16 range( discussed with the hemtology Dr real -no gross bleeding so moniter cbc outpatient in 1 week). Patient is going to the rehab under 1135 Medicare waiver covfl for rehab placement added. He was discharged to [facility] rehab [facility]. However he came home a to 4 days. He did not like it there. He has been feeling very tired. Especially when he tries to walk at home. He complains of chest pain, especially when he is up and about. He gets short winded on exertion but he is still trying to walk around the house. No fever nor chills. No headache, feels dizzy. No abdominal pain nausea vomiting heartburn indigestion. Bowels are working. He denies diarrhea. No gross blood in the stools. Bowels are dark from the iron. His apetite is not good. The is feeding him frequent small meals, fluids and cold fruits and juices. No dysuria or hematuria. He has had sciatica and right hip pain, for years. No focal weakness. He denies depression. No skin rashes nor pruritus. INTERIM HISTORY: He has ongoing pain in the mid left chest wall. He feels a tender spot there. When he breaths in and leans forwarded, it get relieved. He grades the pain level as 5 on 1-10 scale. Tylenol slowed it down however he has to take 1 g every 5 hours, to keep it at bay. He had called complaining about pain in 1 of his teeth. It felt loose. He felt it was infected. He also noted a sinus infection. I started him on Augmentin 875 b.i.d. about a week ago. He feels short of breath on exertion. He has an occasional cough. No sputum. Previous history: He had a bone marrow exam done, on 09/18. The results: Pathology: Hypercellular, erythroid predominant marrow with diserythropoiesis. No increase in blasts or infiltrative process. Reduced storage iron. Flow cytometry is negative for a lymphoproliferative disorder or increased blasts. Cytogenetics and MDS fish panel are negative. PAST MEDICAL HISTORY: He mentioned that his hemoglobin has been trickling down over the years. Review of his labs in the computer revealed: 06/16, CBC: WBC 10.4, HGB 11, HCT 34.2, MCV 103.6, PLT 135. Ferritin: 184. B12 1130. Folate >20. Previous blood count: 04/23/2021 hemoglobin 10.9. 10/15/2020: Hemoglobin 11.9. 01/12/19: Hemoglobin 13. He has been taking half a iron tablet, every other day for the past couple of months. His blood pressure has been well controlled. He is off the lisinopril now. His blood pressure is normal now. FAMILY HISTORY: Denies any known heme Onc problems in the family. 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 He is . Has no children. He denies smoking. No alcohol. He has a busy lifestyle. They have a dog that they love, who keeps them active. They are taking him for walks. Review of Systems - Constitutional Reports system reviewed and no additional complaints, except as documented, Reports fatigue, Reports weakness, Reports weight loss, Denies fever(s) - Eyes Reports system reviewed and no additional complaints, except as documented, Denies blurry vision - ENT Reports system reviewed and no additional complaints, except as documented - Cardiovascular Reports system reviewed and no additional complaints, except as documented, Reports chest pain - Respiratory Reports no additional respiratory complaints, Reports dyspnea on exertion - Gastrointestinal Reports system reviewed and no additional complaints, except as documented - Genitourinary Genitourinary: Reports no additional male genitourinary complaints - Musculoskeletal Reports system reviewed and no additional complaints, except as documented - Integumentary/Breasts Skin/Breast: Reports no additional skin complaints - Neurologic Reports system reviewed and no additional complaints, except as documented, Reports weakness - Psychiatric Reports system reviewed and no additional complaints, except as documented - Endocrine Reports no additional endocrine complaints - Hematologic/Lymphatic Reports system reviewed and no additional complaints, except as documented - Allergic/Immunologic Reports system reviewed and no additional complaints, except as documented PMFSH Medical History: Medical History (Last Reviewed 12/07/22 @ 11:17 by Eduardo Mejias) BPH (benign prostatic hyperplasia) COVID-19 vaccine series completed Elevated cholesterol H/O prostate cancer HTN (hypertension) Hypothyroid Lung cancer Non-small cell lung cancer (NSCLC) Pancytopenia Port-A-Cath in place PVD (peripheral vascular disease) Functional capacity: wheelchair bound Patient : No Surgical History: Surgical History (Last Reviewed 12/07/22 @ 11:17 by Eduardo Mejias) H/O colonoscopy History of bone marrow biopsy History of carotid endarterectomy History of thoracentesis Hx of cataract extraction Hx of prostatectomy Hx of umbilical hernia repair Social History: Social History (Last Reviewed 12/07/22 @ 11:17 by Eduardo Mejias) Living Situation History: Household Members: Spouse Housing: House Are you a primary child day care center worker to a significant other at home: No Do you presently have visiting nurse or other home services: No Alcohol History Details: 1. How often do you have a drink containing alcohol?: a. Never Tobacco History: Patient Tobacco Use Status: Never used Tobacco e-Cigarette/Vaping Use: Never Used Second Hand Smoke Exposure: No Substance Use History: Use of substances other than those prescribed or required for medical reasons : No Domestic Abuse History: Have you been hit, kicked, punched, or otherwise hurt by someone within the past year? If so, by whom?: No Do you feel safe in your current relationship?: Yes Advance Directives: Advance Directives Date on File: 09/18/21 Homicidal Assessment: Do you have thoughts of harming others: None Do you have a plan to hurt others: No Plan Do you have the means to hurt others: No Nutrition Assessment: Recently lost weight without trying: No Patient : No Occupation Assessmet: service: No Current occupational status: retired Oncology Screenings - ECOG Performance Status ECOG Performance Status: 2 Home Medications and Allergies Home Medications Medication Instructions Recorded Confirmed Type ascorbic acid (vitamin C) 1,000 mg 1 g PO DAILY 07/30/21 12/07/22 History tablet (Vitamin C) aspirin 325 mg capsule 325 mg PO DAILY 07/30/21 12/07/22 History cholecalciferol (vitamin D3) 50 50 mcg PO DAILY 07/30/21 12/07/22 History mcg (2,000 unit) capsule (Vitamin D3) cyanocobalamin (vitamin B-12) 1,000 mcg PO DAILY 07/30/21 12/07/22 History 1,000 mcg capsule ferrous sulfate 325 mg (65 mg 32 mg PO Q OTHER DAY 07/30/21 12/07/22 History iron) tablet multivitamin 1 tab PO DAILY 07/30/21 12/07/22 History acetaminophen 500 mg tablet 500 mg PO Q6H PRN Pain 10/20/22 12/07/22 History ondansetron 8 mg disintegrating 8 mg PO Q8H PRN Nausea 11/06/22 12/07/22 History tablet Allergies Allergy/AdvReac Type Severity Reaction Status Date / Time No Known Allergies Allergy Verified 12/07/22 11:17 [No Known Allergies*] Exam Vital signs: Vital Signs Temp 97.8 F 10/30/22 10:05 Pulse 94 10/30/22 10:05 Resp 18 10/30/22 10:05 BP 143/65 H 10/30/22 10:05 Pulse Ox 93 10/30/22 10:05 O2 Del Method Room Air 10/30/22 10:05 Weight 65.7 kg BMI result Body Mass Index 21.4 - Constitutional Present: no acute distress - Routine HEENT Exam Head: Present: normal inspection Eye: Present: normal appearance ENT: Present: mucous membranes moist - Routine Neck Exam Present: full ROM - Routine Chest/Breast/Axilla Exam Chest wall: Present: tenderness - Routine Respiratory Exam Present: CTAB - Routine Cardiovascular Exam Cardiovascular: Present: RRR, S1, S2 - Routine Abdominal Exam Present: nontender - Routine Extremities Exam Present: nontender - Routine Back/Spine/Pelvis Exam Back/Spine: Present: full ROM - Routine Skin Exam Present: intact, normal turgor - Routine Neurological Exam Present: alert, oriented X3 - Detailed Neurological Exam: Coma Scale Eye Opening: Spontaneous (4) - Routine Psychiatric Exam Present: normal affect Data - Labs CBC & Chem 7: 12/11/22 09:45 12/11/22 09:45 Assessment and Plan Patient Active problem list reviewed?: Yes (1) Macrocytic anemia Status: Acute Assessment and plan: This is a pleasant 81-year-old gentleman with a history of macrocytic anemia. DIFFERENTIAL DIAGNOSIS: 1. B12 FOLATE DEFICIENCY: B12 LEVEL 1130. FOLATE: >20. 2. UNDERLYING MYELO INFILTRATIVE DISORDER: MDS can present with macrocytosis. Differential multiple myeloma. 3. THYROID DISEASE CAN GIVE RISE TO MACROCYTOSIS. 4. COPD: Can also cause increased red cell size. 5. MULTIFACTORIAL ANEMIA: With combined iron deficiency. Iron studies: 141/326/47/209. He has been taking half a iron tablet, every other day for the past month. I proceeded with further evaluation. Checked SIEP: no monoclonal spike. Checked LDH: 245. Checked TSH: 1.12 and T4. He is holding stable. His CBC reveals an elevated WBC count and thrombocytopenia. I was concerned about an underlying bone marrow disorder. He had a bone marrow exam done, on 09/18. He is here to review the results. Pathology: Hypercellular, erythroid predominant marrow with diserythropoiesis. No increase in blasts or infiltrative process. Reduced storage iron. Flow cytometry is negative for a lymphoproliferative disorder or increased blasts. Cytogenetics and MDS fish panel are negative. Review of his labs from 09/18, revealed: WBC 12.4, Hemoglobin of 9.8/29.8, PLT 136. BUN 25, PROGRAM PLANNER 1.17, creatinine clearance 47.4. Patient has anemia of chronic disease related to stage III CKD. 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 Procrit would help with both the disorders. Details of the regimen including elevated blood pressure, elevated hemoglobin, headache dizziness, thrombosis were all addressed with him. He understood and was willing to proceed. He received a shot of Procrit on 09/25. Subsequently hemoglobin went up to above 12. His hemoglobin in October was 12.2. On 11/10 it was 12.0. He is doing very well. He received Procrit on 12/12 and 01/12 and 02/17. He has not required it since then. On 09/15, his Hemoglobin was: 11.1. His ferritin: 214. Previous Iron studies: 62/295/21/174. PLAN: He did not need to get Procrit. Will hold off on further Procrit injections, now that he has been diagnosed with lung cancer, with which it is relatively contraindicated. He will return in 2 weeks for a follow-up visit. Thanks, CC: Joe Schultz (2) Adenocarcinoma of left lung Status: Acute Assessment and plan: 82 year old gentleman who complained of left-sided chest pain. He had diminished breath sounds on the left base. Chest x-ray revealed: Small to moderate left pleural effusion with associated airspace opacity which could represent atelectasis or pneumonia. There may be mild pleural thickening at the periphery of the left upper hemithorax. I proceeded with a CT scan of the chest. This was done on 09/23 and revealed: 3.6 x 2.6 cm left upper lobe mass invading the chest wall pleura and mediastinal pleura suspicious for pulmonary malignancy. Additional areas of abnormal parietal pleural thickening in the left hemithorax suspicious for pleural metastatic disease. Recommend correlation with fluid cytology. Biopsy may be necessary for diagnosis. This was called to Dr. Real at 8:30 AM on 09/29/2022. 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 Moderate nonsimple left pleural effusion suspicious for malignant effusion. Mild emphysema. Mild pulmonary fibrosis. 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 Consider referral to a vascular specialist. l then proceeded with diagnostic and therapeutic thoracentesis on the left side. Cytology revealed: Positive for malignant cells, consistent with adenocarcinoma of lung origin. Lung panel has been sent. PET scan from 10/13: 1. Extensive nodular masslike multifocal FDG avid pleural thickenings are present throughout the entire left hemithorax with most pronounced changes seen at anterior, medial aspect of the mid part of the left hemithorax with the dominant solid-appearing soft tissue mass measuring approximately 4.4 cm at its maximum transverse dimension with SUV max of 9.4, inseparable from the adjacent mediastinal pleura. Additional solid masslike FDG avid pleural thickenings are also present especially involving anterior inferior costophrenic sulcus, measures approximately 2.6 x 1.3 cm with SUV max of 7.3. In addition, multiloculated FDG avid pleural effusion is also present with most pronounced changes seen within the base of the pleural space. The findings are most consistent with either primary or metastatic pleural malignancy. 2. Partial collapse consolidation involving both left lower greater than upper lobes. 3. No FDG avid mediastinal and/or hilar or axillary or internal mammary lymphadenopathy or FDG avid disease within the contralateral right lung or pleural space. 4. Subcentimeter non-FDG avid nodular opacity within the superior segment of right lower lobe of the lung with underlying subpleural cystic changes. 5. Indeterminate moderately intense FDG avidity involving likely proximal ascending colon at right iliac fossa with SUV max of 6.5, for which direct visualization/colonoscopy is recommended for further clarification, if not recently performed. 6. Moderately intense diffuse increased FDG avidity throughout the entire axial skeleton as well as both proximal femur, may represent bone marrow infiltrative/replacement process versus physiologic hyperplastic changes. 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 He has an appointment next for colonoscopy. I reviewed the PET scan with radiology. He has concern for bone marrow metastases. l proceeded with CT scan guided bone marrow biopsy of the iliac crest. This was done on 10/26, by IR. Pathology: Hypercellular marrow with 90% cellularity. Dysplastic trilineage hematopoiesis. 5-10% blasts. Molecular testing is pending. He had the Port-A-Cath placed by IR on 10/29. He was treated with Carboplatin, Alimta and pembrolizumab. He received 1st cycle of treatment, on October 30. In view of the recent bone marrow findings, resulting in anemia and thrombocytopenia, I elected to use dose reduction. l used 75 percent dose of Alimta, and dose reduce carbo according to the renal function. For he still has low blood counts. He feels extremely fatigued. Hemoglobin is 6.1. Platelets 19. His O2 sat was borderline low. PLAN: He received 1 unit of blood today and will return tomorrow for another. Will get respiratory to assess him for home O2. He will have labs drawn weekly at home with [facility]. I offered hospice care however the feels she is okay for now. He will return in 2 weeks for a follow-up visit. I discussed code status with him. He will think it over and let me know of his decision. For now, his is the healthcare proxy. Thank you, (3) Abnormal chest x-ray Status: Acute Assessment and plan: 82 year old gentleman who complained of left-sided chest pain. He had diminished breath sounds on the left base. Chest x-ray revealed: Small to moderate left pleural effusion with associated airspace opacity which could represent atelectasis or pneumonia. There may be mild pleural thickening at the periphery of the left upper hemithorax. I proceeded with a CT scan of the chest. This was done on 09/23 and revealed: 3.6 x 2.6 cm left upper lobe mass invading the chest wall pleura and mediastinal pleura suspicious for pulmonary malignancy. Additional areas of abnormal parietal pleural thickening in the left hemithorax suspicious for pleural metastatic disease. Recommend correlation with fluid cytology. Biopsy may be necessary for diagnosis. This was called to Dr. Real at 8:30 AM on 09/29/2022. 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 Moderate nonsimple left pleural effusion suspicious for malignant effusion. Mild emphysema. Mild pulmonary fibrosis. 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 Consider referral to a vascular specialist. l then proceeded with diagnostic and therapeutic thoracentesis on the left side. Cytology revealed: Positive for malignant cells, consistent with adenocarcinoma of lung origin. Lung panel has been sent. PET scan from 10/13: 1. Extensive nodular masslike multifocal FDG avid pleural thickenings are present throughout the entire left hemithorax with most pronounced changes seen at anterior, medial aspect of the mid part of the left hemithorax with the dominant solid-appearing soft tissue mass measuring approximately 4.4 cm at its maximum transverse dimension with SUV max of 9.4, inseparable from the adjacent mediastinal pleura. Additional solid masslike FDG avid pleural thickenings are also present especially involving anterior inferior costophrenic sulcus, measures approximately 2.6 x 1.3 cm with SUV max of 7.3. In addition, multiloculated FDG avid pleural effusion is also present with most pronounced changes seen within the base of the pleural space. The findings are most consistent with either primary or metastatic pleural malignancy. 2. Partial collapse consolidation involving both left lower greater than upper l obes. 3. No FDG avid mediastinal and/or hilar or axillary or internal mammary lymphadenopathy or FDG avid disease within the contralateral right lung or pleural space. 4. Subcentimeter non-FDG avid nodular opacity within the superior segment of right lower lobe of the lung with underlying subpleural cystic changes. 5. Indeterminate moderately intense FDG avidity involving likely proximal ascending colon at right iliac fossa with SUV max of 6.5, for which direct visualization/colonoscopy is recommended for further clarification, if not recently performed. 6. Moderately intense diffuse increased FDG avidity throughout the entire axial skeleton as well as both proximal femur, may represent bone marrow infiltrative/replacement process versus physiologic hyperplastic changes. 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 Then diagnostic and therapeutic thoracentesis on the left side: Positive for malignant cells consistent with adenocarcinoma of lung origin Bone marrow biopsy under CT scan guidance by IR was done on 10/26. It revealed RAEB. He will return in 3 weekS for a follow-up visit. Thank you, - Time Spent With Patient Time Spent with Patient (in minutes): 30
[2022-12-07 11:16] VITALS: BP 93/45; PULSE 103; TEMP 36.3; O2SAT 91; BMI 17.6
[2022-12-07 11:33] LABS: MANUAL DIFF FLAG NO
[2022-12-07 11:42] LABS: Basophils Percent Auto 0.3 % (0-2); Eosinophils Absolute Auto 0.5 X10*3/uL (0.0-0.4); Eosinophils Percent Auto 7.5 % (0-4); Lymphocytes Percent Auto 15.2 % (20-40); Mean Corpuscular Hemoglobin 29.7 pg (27.0-33.0); Mean Corpuscular Volume 92.7 fL (80.0-98.0); Monocytes Absolute Auto 0.7 X10*3/uL (0.1-1.2); Monocytes Percent Auto 11.4 % (2-11); NRBC Pct Auto 0.6 /100WBC (0.0-0.2); Neutrophils Absolute Auto 4.1 x10*3/uL (2.0-8.3); Neutrophils Percent Auto 65.6 % (45-73); Red Blood Count 2.19 X10*6/uL (4.60-5.80); Red Cell Distribution Width 23.6 % (11.0-16.0); White Blood Count 6.3 X10*3/uL (4.8-10.8)
[2022-12-07 11:45] LABS: Hematocrit 20.3 % (42.0-52.0); Hemoglobin 6.5 g/dl (14.0-18.0); Platelet Count 19 X10*3/uL (160-400)
[2022-12-07 12:03] LABS: Alanine Aminotransferase 24 U/L (0-40); Albumin Level 3.1 g/dL (3.5-5.0); Alkaline Phosphatase 90 U/L (39-117); Anion Gap 14 (12-20); Aspartate Amino Transferase 28 U/L (5-37); Blood Urea Nitrogen 11 mg/dL (9-16); Calcium 8.2 mg/dL (8.4-10.2); Carbon Dioxide 25 mmol/L (22-29); Chloride 97 mmol/L (96-108); Creatinine Clr Calc Pharmacy 57.2; Estimated Glomerular Filt Rate > 60; Glucose Random 110 mg/dL (60-115); Iron 74 mcg/dL (45-160); Percent Iron Saturation 37 % (15-50); Potassium 4.2 mmol/L (3.3-5.1); Sodium 132 mmol/L (135-145); Total Iron Binding Capacity 199 mcg/dL (228-428); Total Protein 7.1 g/dL (6.5-8.0); Unsaturated Iron Binding 125 ug/dL
[2022-12-07 12:57] LABS: Ferritin 3374 ng/mL (20-250)
--- NOTE | 2022-12-07 13:12 | MHC.HEMONCMA ---
patient seen today for macrocytic anemia, vss,labs, follow up tbd
[2022-12-07 13:35] VITALS: BP 87/54; PULSE 95; RESP 17; TEMP 36.9
[2022-12-07 13:50] VITALS: BP 110/57; PULSE 94; RESP 16; TEMP 36.3
--- NOTE | 2022-12-07 14:25 | MHC.HEMONCSW ---
SW checked with Pt and his about whether they have a Health Care Proxy - Tashia indicted they do and believed that we have a copy, which i explained we do not. She will bring in a copy.
[2022-12-07 16:53] VITALS: BP 108/55; PULSE 90; RESP 18; TEMP 36.7
--- NOTE | 2022-12-07 16:57 | MHC.HEMONC ---
Critical labs H/H 6.5/20.3 - Dr. Marks aware. Port to right chest accessed without difficulty -#20g placed. Labs obtained and reviewed. New order for 2 units of RBCs. Consent for blood signed. O2 sat ranging from 91-93% - patient dyspneic with excretion. Lungs clear with faint fine crackles noted to lower lobes. No distress. 1 unit of RBC well tolerated. No signs of transfusion reaction noted. Patient to return tomorrow for second unit. Order placed for home 02 evaluation however both and patient decided not to proceed due to weakness and fatigue. Respiratory notified. Patient and may decide after second unit of blood to have this done. Dr. Marks notified. Port clamped and capped for transfusion tomorrow. Patient instructed to keep blood bank band on. Discharge packet provided.
[2022-12-08 11:46] VITALS: BP 112/55; PULSE 95; RESP 18; TEMP 36.5; O2SAT 96
[2022-12-08 12:03] VITALS: BP 112/55; PULSE 95; RESP 18; TEMP 36.5
[2022-12-08 12:19] VITALS: BP 108/56; PULSE 84; RESP 17; TEMP 37
[2022-12-08] MEDS: Acetaminophen 325 MG TABLET 650 MG PO (13:43)
--- NOTE | 2022-12-08 14:07 | MHC.HEMONC ---
pt received the second unit of rbc today, tolerated well. o2 96% on room air fine crackles noted in rll, pt does not want home o2. tylenol given for general body aches. home lab draw will be done tomorrow through [facility].
[2022-12-08 15:21] VITALS: BP 93/54; PULSE 74; RESP 18; TEMP 37.1
--- NOTE | 2022-12-09 10:30 | MHC.HEMONC ---
Addendum entered by Tawanna Daley RN 12/09/22 16:25: [facility] called by this nurse. #[phone]. Was transferred to the lab, voicemail left asking what we have to do to set up home draws for this patient and to give us call back. Call back number given. Waiting return call. Jenny nurse navigator notified also. Original Note: Triage call- Sushma from [facility] called Stating that they can not continue to do home draws because there is no skill involved. That we have to set up it up with an outside lab. She stated [facility] is who they use.
--- NOTE | 2022-12-09 16:34 | MHC.HEMONC ---
Danae from [facility] called Celestino PLT 14. Dr Marks notified. Plan labs on Wednesday. Note left for triage nurse.
--- NOTE | 2022-12-10 12:40 | MHC.HEMONC ---
Triage call-pt's called regarding recent platelet count of 14. Plan for pt to return to clinic tomorrow for repeat blood draw and type and screen for possible platelet transfusion. Appointment scheduled- aware of appointment. Plan for home draw labs with [facility] every Wednesday-will fax order sheet to [facility] lab
[2022-12-11 09:48] LABS: MANUAL DIFF FLAG NO
[2022-12-11 10:04] LABS: Basophils Percent Auto 0.3 % (0-2); Eosinophils Absolute Auto 0.4 X10*3/uL (0.0-0.4); Eosinophils Percent Auto 6.9 % (0-4); Hematocrit 27.1 % (42.0-52.0); Hemoglobin 8.6 g/dl (14.0-18.0); Imm Gran Abs Auto 0.02 X10*3/uL (0.00-0.03); Imm Gran Pct Auto 0.3 % (0.0-0.4); Lymphocytes Absolute Auto 0.8 X10*3/uL (1.2-4.9); Lymphocytes Percent Auto 13.1 % (20-40); Mean Corpuscular HGB Conc 31.7 g/dl (31.0-36.0); Mean Corpuscular Hemoglobin 29.5 pg (27.0-33.0); Mean Corpuscular Volume 92.8 fL (80.0-98.0); Monocytes Absolute Auto 0.8 X10*3/uL (0.1-1.2); Monocytes Percent Auto 13.1 % (2-11); NRBC Pct Auto 0.3 /100WBC (0.0-0.2); Neutrophils Absolute Auto 4.1 x10*3/uL (2.0-8.3); Neutrophils Percent Auto 66.3 % (45-73); Red Blood Count 2.92 X10*6/uL (4.60-5.80); Red Cell Distribution Width 21.2 % (11.0-16.0); White Blood Count 6.1 X10*3/uL (4.8-10.8)
[2022-12-11 10:06] LABS: Platelet Count 15 X10*3/uL (160-400)
[2022-12-11 10:30] VITALS: BP 93/54; PULSE 96; RESP 18; TEMP 36.7; O2SAT 94; BMI 17.7
[2022-12-11 10:31] LABS: Alanine Aminotransferase 29 U/L (0-40); Alkaline Phosphatase 97 U/L (39-117); Anion Gap 13 (12-20); Aspartate Amino Transferase 30 U/L (5-37); Blood Urea Nitrogen 11 mg/dL (9-16); Calcium 8.4 mg/dL (8.4-10.2); Carbon Dioxide 25 mmol/L (22-29); Chloride 98 mmol/L (96-108); Estimated Glomerular Filt Rate > 60; Glucose Random 93 mg/dL (60-115); Potassium 4.2 mmol/L (3.3-5.1); Sodium 132 mmol/L (135-145); Total Protein 6.9 g/dL (6.5-8.0)
[2022-12-11 12:28] VITALS: BP 93/54; PULSE 96; RESP 18; TEMP 36.7
[2022-12-11 12:43] VITALS: BP 104/54; PULSE 81; RESP 18; TEMP 36.9
[2022-12-11 13:29] VITALS: BP 119/59; PULSE 87; RESP 17; TEMP 36.8
--- NOTE | 2022-12-11 18:04 | MHC.HEMONC ---
Pt and were in for f/u lab draw, nurse accessed pt's R chest implantd port in sterile procedure, flushed w/ NS, found positive blood return, collected ordered specimens, including type & screen, nurse flushed port w/ NS. Pt had critical low Platelets of 15, Dr. Marks was made aware, also WBC of 6.1, Hgb/Hct of 8.6/27.1. Dr. Marks ordered pt to receive 1 dose of platelets, blood band banded pt, pt and Dr. Marks both signed consent to transfuse. Pt received 1 dose platelets, VS remained stable. Nurse flushed port w/ NS and heparin 500 units, then de-accessed. Pt was given calendar, to have his labs checked at home by [facility] on Tuesdays.
[2022-12-22 11:14] VITALS: BP 90/50; PULSE 96; TEMP 36.3; O2SAT 91; BMI 17.5
--- NOTE | 2022-12-22 11:20 | P.PNHO-ONC_ITS ---
Medical Summary - Medical Summary Date of Service: 12/22/22 Chief complaint: FOLLOW-UP FOR: 1. LUNG CANCER. 2. MDS. Primary Care Provider: Douglas Schultz PA-C Medical Summary: DIAGNOSIS: 1. MACROCYTIC ANEMIA. ACD. Dyserythropoeisis. 2. Non small cell Lung Cancer. CURRENT THERAPY: 1. Procrit received:On 12/12, 01/12, and 02/17 and 05/15/22. Off it now. 2. Recieved 1st cycle of chemotherapy with Carbo/Alimta and Pembrolizumab on 10/30. Interval History Interval history: Celestino Gage is a pleasant 82 year old gentleman, here for a follow-up visit. He received platelet and blood transfusion the Wednesday before last. Subsequently he has developed a skin rash on his upper extremities. It is a maculopapular raised spotty eruption. Nonpruritic. The used hydrocortisone cream which appears to have helped. Other than that he feels stable. His energy level is picking up however still becomes low at times. His breathing is okay. O2 sat was 91-92% at home. He denies abdominal pain. He is taking anti emetic twice a day on a schedule. His appetite appears to be picking up. He is sleeping through the night. No dysuria or hematuria. He has had sciatica and right hip pain, for years. No focal weakness. He denies depression. No skin rashes nor pruritus. RECENT HISTORY: He had chemotherapy, on 10/30. He was subsequently, admitted to the hospital on 11/05. He was discharged 11/10. Discharge summary: Patient was admitted due to nausea vomiting diarrhea and pancytopenia: Possible above symptoms are related to chemotherapy. Patient did not had any nausea vomiting and diarrhea afterwards and instead has constipated - which is being treated with laxatives. oxycodone adjusted. monitor for constipation closely by the oxycodone. continue laxatives- hold if patient develops diarrhea. pancytopenia: Seems to be improving- patient received 3 PRBC and 2 units of platelets during this admission: H&H is stable around 7.7, denies any gross bleeding. Platelets are in 16 range( discussed with the hemtology Dr real -no gross bleeding so moniter cbc outpatient in 1 week). Patient is going to the rehab under 1135 Medicare waiver covid for rehab placement added. He was discharged to [facility] rehab [facility]. However he came home a to 4 days. He did not like it there. INTERIM HISTORY: He has ongoing pain in the mid left chest wall. He feels a tender spot there. When he breaths in and leans forwarded, it get relieved. He grades the pain level as 5 on 1-10 scale. Tylenol slowed it down however he has to take 1 g every 5 hours, to keep it at bay. He had called complaining about pain in 1 of his teeth. It felt loose. He fe lt it was infected. He also noted a sinus infection. I started him on Augmentin 875 b.i.d. about a week ago. He feels short of breath on exertion. He has an occasional cough. No sputum. Previous history: He had a bone marrow exam done, on 09/18. The results: Pathology: Hypercellular, erythroid predominant marrow with diserythropoiesis. No increase in blasts or infiltrative process. Reduced storage iron. Flow cytometry is negative for a lymphoproliferative disorder or increased yareli ts. Cytogenetics and MDS fish panel are negative. PAST MEDICAL HISTORY: He mentioned that his hemoglobin has been trickling down over the years. Review of his labs in the computer revealed: 06/16, CBC: WBC 10.4, HGB 11, HCT 34.2, MCV 103.6, PLT 135. Ferritin: 184. B12 1130. Folate >20. Previous blood count: 04/23/2021 hemoglobin 10.9. 10/15/2020: Hemoglobin 11.9. 01/12/19: Hemoglobin 13. He has been taking half a iron tablet, every other day for the past couple of months. His blood pressure has been well controlled. He is off the lisinopril now. His blood pressure is normal now. FAMILY HISTORY: Denies any known heme Onc problems in the family. 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 He is . Has no children. He denies smoking. No alcohol. He has a busy lifestyle. They have a dog that they love, who keeps them active. They are taking him for walks. Review of Systems - Constitutional Reports system reviewed and no additional complaints, except as documented, Reports weakness, Reports weight loss, Denies fever(s) - Eyes Reports system reviewed and no additional complaints, except as documented - ENT Reports system reviewed and no additional complaints, except as documented - Cardiovascular Reports system reviewed and no additional complaints, except as documented - Respiratory Reports no additional respiratory complaints - Gastrointestinal Reports system reviewed and no additional complaints, except as documented - Genitourinary Genitourinary: Reports no additional male genitourinary complaints - Musculoskeletal Reports system reviewed and no additional complaints, except as documented - Integumentary/Breasts Skin/Breast: Reports no additional skin complaints - Neurologic Reports system reviewed and no additional complaints, except as documented, Reports weakness - Psychiatric Reports system reviewed and no additional complaints, except as documented - Endocrine Reports no additional endocrine complaints - Hematologic/Lymphatic Reports system reviewed and no additional complaints, except as documented - Allergic/Immunologic Reports system reviewed and no additional complaints, except as documented PMFSH Medical History: Medical History (Last Reviewed 12/22/22 @ 11:21 by Eduardo Mejias) BPH (benign prostatic hyperplasia) COVID-19 vaccine series completed Elevated cholesterol H/O prostate cancer HTN (hypertension) Hypothyroid Lung cancer Non-small cell lung cancer (NSCLC) Pancytopenia Port-A-Cath in place PVD (peripheral vascular disease) Functional capacity: wheelchair bound Patient : No Surgical History: Surgical History (Last Reviewed 12/22/22 @ 11:21 by Eduardo Mejias) H/O colonoscopy History of bone marrow biopsy History of carotid endarterectomy History of thoracentesis Hx of cataract extraction Hx of prostatectomy Hx of umbilical hernia repair Social History: Social History (Last Reviewed 12/22/22 @ 11:21 by Eduardo Mejias) Living Situation History: Household Members: Spouse Housing: House Are you a primary rental boats caretaker to a significant other at home: No Do you presently have visiting nurse or other home services: No Tobacco History: Patient Tobacco Use Status: Never used Tobacco e-Cigarette/Vaping Use: Never Used Second Hand Smoke Exposure: No Advance Directives: Advance Directives Date on File: 09/18/21 Occupation Assessmet: service: No Current occupational status: retired Home Medications and Allergies Home Medications Medication Instructions Recorded Confirmed Type ascorbic acid (vitamin C) 1,000 mg 1 g PO DAILY 07/30/21 12/22/22 History tablet (Vitamin C) aspirin 325 mg capsule 325 mg PO DAILY 07/30/21 12/22/22 History cholecalciferol (vitamin D3) 50 50 mcg PO DAILY 07/30/21 12/22/22 History mcg (2,000 unit) capsule (Vitamin D3) cyanocobalamin (vitamin B-12) 1,000 mcg PO DAILY 07/30/21 12/22/22 History 1,000 mcg capsule ferrous sulfate 325 mg (65 mg 32 mg PO Q OTHER DAY 07/30/21 12/22/22 History iron) tablet multivitamin 1 tab PO DAILY 07/30/21 12/22/22 History acetaminophen 500 mg tablet 500 mg PO Q6H PRN Pain 10/20/22 12/22/22 History ondansetron 8 mg disintegrating 8 mg PO Q8H PRN Nausea 11/06/22 12/22/22 History tablet Allergies Allergy/AdvReac Type Severity Reaction Status Date / Time No Known Allergies Allergy Verified 12/22/22 11:22 [No Known Allergies*] Exam Vital signs: Vital Signs Temp 98.2 F 12/11/22 13:29 Pulse 87 12/11/22 13:29 Resp 17 12/11/22 13:29 BP 119/59 L 12/11/22 13:29 Pulse Ox 94 12/11/22 10:30 O2 Del Method Room Air 12/11/22 10:30 Weight 54.3 kg BMI result Body Mass Index 17.7 - Constitutional Present: no acute distress - Routine HEENT Exam Head: Present: normal inspection Eye: Present: normal appearance ENT: Present: mucous membranes moist - Routine Neck Exam Present: full ROM - Routine Chest/Breast/Axilla Exam Chest wall: Present: tenderness - Routine Respiratory Exam Present: CTAB - Routine Cardiovascular Exam Cardiovascular: Present: RRR, S1, S2 - Routine Abdominal Exam Present: nontender - Routine Extremities Exam Present: nontender - Routine Back/Spine/Pelvis Exam Back/Spine: Present: full ROM - Routine Skin Exam Present: intact, normal turgor - Routine Neurological Exam Present: alert, oriented X3 - Detailed Neurological Exam: Coma Scale Eye Opening: Spontaneous (4) - Routine Psychiatric Exam Present: normal affect Data - Labs CBC & Chem 7: 12/22/22 11:16 12/22/22 11:16 Assessment and Plan Patient Active problem list reviewed?: Yes (1) Macrocytic anemia Status: Acute Assessment and plan: This is a pleasant 81-year-old gentleman with a history of macrocytic anemia. DIFFERENTIAL DIAGNOSIS: 1. B12 FOLATE DEFICIENCY: B12 LEVEL 1130. FOLATE: >20. 2. UNDERLYING MYELO INFILTRATIVE DISORDER: MDS can present with macrocytosis. Differential multiple myeloma. 3. THYROID DISEASE CAN GIVE RISE TO MACROCYTOSIS. 4. COPD: Can also cause increased red cell size. 5. MULTIFACTORIAL ANEMIA: With combined iron deficiency. Iron studies: 141/326/47/209. He has been taking half a iron tablet, every other day for the past month. I proceeded with further evaluation. Checked SIEP: no monoclonal spike. Checked LDH: 245. Checked TSH: 1.12 and T4. He is holding stable. His CBC reveals an elevated WBC count and thrombocytopenia. I was concerned about an underlying bone marrow disorder. He had a bone marrow exam done, on 09/18. He is here to review the results. Pathology: Hypercellular, erythroid predominant marrow with diserythropoiesis. No increase in blasts or infiltrative process. Reduced storage iron. Flow cytometry is negative for a lymphoproliferative disorder or increased blasts. Cytogenetics and MDS fish panel are negative. Review of his labs from 09/18, revealed: WBC 12.4, Hemoglobin of 9.8/29.8, PLT 136. BUN 25, PLASTICS FITTER 1.17, creatinine clearance 47.4. Patient has anemia of chronic disease related to stage III CKD. 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 Procrit would help with both the disorders. Details of the regimen including elevated blood pressure, elevated hemoglobin, headache dizziness, thrombosis were all addressed with him. He understood and was willing to proceed. He received a shot of Procrit on 09/25. Subsequently hemoglobin went up to above 12. His hemoglobin in October was 12.2. On 11/10 it was 12.0. He is doing very well. He received Procrit on 12/12 and 01/12 and 02/17. He has not required it since then. On 09/15, his Hemoglobin was: 11.1. His ferritin: 214. Previous Iron studies: 62/295/21/174. PLAN: Will hold off on further Procrit injections, now that he has been diagnosed with lung cancer, with which it is relatively contraindicated. He will return in 2 weeks for a follow-up visit. Thanks, CC: Joe Schultz (2) Adenocarcinoma of left lung Status: Acute Assessment and plan: 82 year old gentleman who complained of left-sided chest pain. He had diminished breath sounds on the left base. Chest x-ray revealed: Small to moderate left pleural effusion with associated airspace opacity which could represent atelectasis or pneumonia. There may be mild pleural thickening at the periphery of the left upper hemithorax. I proceeded with a CT scan of the chest. This was done on 09/23 and revealed: 3.6 x 2.6 cm left upper lobe mass invading the chest wall pleura and mediastinal pleura suspicious for pulmonary malignancy. Additional areas of abnormal parietal pleural thickening in the left hemithorax suspicious for pleural metastatic disease. Recommend correlation with fluid cytology. Biopsy may be necessary for diagnosis. This was called to Dr. Real at 8:30 AM on 09/29/2022. 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 Moderate nonsimple left pleural effusion suspicious for malignant effusion. Mild emphysema. Mild pulmonary fibrosis. 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 Consider referral to a vascular specialist. l then proceeded with diagnostic and therapeutic thoracentesis on the left side. Cytology revealed: Positive for malignant cells, consistent with adenocarcinoma of lung origin. Lung panel has been sent. PET scan from 10/13: 1. Extensive nodular masslike multifocal FDG avid pleural thickenings are present throughout the entire left hemithorax with most pronounced changes seen at anterior, medial aspect of the mid part of the left hemithorax with the dominant solid-appearing soft tissue mass measuring approximately 4.4 cm at its maximum transverse dimension with SUV max of 9.4, inseparable from the adjacent mediastinal pleura. Additional solid masslike FDG avid pleural thickenings are also present especially involving anterior inferior costophrenic sulcus, measures approximately 2.6 x 1.3 cm with SUV max of 7.3. In addition, multiloculated FDG avid pleural effusion is also present with most pronounced changes seen within the base of the pleural space. The findings are most consistent with either primary or metastatic pleural malignancy. 2. Partial collapse consolidation involving both left lower greater than upper lobes. 3. No FDG avid mediastinal and/or hilar or axillary or internal mammary lymphadenopathy or FDG avid disease within the contralateral right lung or pleural space. 4. Subcentimeter non-FDG avid nodular opacity within the superior segment of right lower lobe of the lung with underlying subpleural cystic changes. 5. Indeterminate moderately intense FDG avidity involving likely proximal ascending colon at right iliac fossa with SUV max of 6.5, for which direct visualization/colonoscopy is recommended for further clarification, if not recently performed. 6. Moderately intense diffuse increased FDG avidity throughout the entire axial skeleton as well as both proximal femur, may represent bone marrow infiltrative/replacement process versus physiologic hyperplastic changes. 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 He has an appointment next for colonoscopy. I reviewed the PET scan with radiology. He has concern for bone marrow metastases. kathi proceeded with CT scan guided bone marrow biopsy of the iliac crest. This was done on 10/26, by IR. Pathology: Hypercellular marrow with 90% cellularity. Dysplastic trilineage hematopoiesis. 5-10% blasts. Molecular testing is pending. He had the Port-A-Cath placed by IR on 10/29. He was treated with Carboplatin, Alimta and pembrolizumab. He received 1st cycle of treatment, on October 30. In view of the recent bone marrow findings, resulting in anemia and thrombocytopenia, I elected to use dose reduction. kathi used 75 percent dose of Alimta, and dose reduce carbo according to the renal function. He had a prolonged mona, after that. His blood counts appears to be getting steady. He feels somewhat fatigued. Hemoglobin is 7.4. Platelets: 35. PLAN: He received 1 unit of blood today. I will check a chest x-ray today to follow-up on the lung cancer and the effusion. He will have labs drawn weekly at home with [facility]. I offered hospice care however the feels she is okay for now. He will return in 2 weeks for a follow-up visit. I discussed code status with him. He will think it over and let me know of his decision. His is the healthcare proxy. Thank you, (3) Abnormal chest x-ray Status: Acute Assessment and plan: 82 year old gentleman who complained of left-sided chest pain. He had diminished breath sounds on the left base. Chest x-ray revealed: Small to moderate left pleural effusion with associated airspace opacity which could represent atelectasis or pneumonia. There may be mild pleural thickening at the periphery of the left upper hemithorax. I proceeded with a CT scan of the chest. This was done on 09/23 and revealed: 3.6 x 2.6 cm left upper lobe mass invading the chest wall pleura and mediastinal pleura suspicious for pulmonary malignancy. Additional areas of abnormal parietal pleural thickening in the left hemithorax suspicious for pleural metastatic disease. Recommend correlation with fluid cytology. Biopsy may be necessary for diagnosis. This was called to Dr. Real at 8:30 AM on 09/29/2022. 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 Moderate nonsimple left pleural effusion suspicious for malignant effusion. Mild emphysema. Mild pulmonary fibrosis. 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 Consider referral to a vascular specialist. l then proceeded with diagnostic and therapeutic thoracentesis on the left side. Cytology revealed: Positive for malignant cells, consistent with adenocarcinoma of lung origin. Lung panel has been sent. PET scan from 10/13: 1. Extensive nodular masslike multifocal FDG avid pleural thickenings are present throughout the entire left hemithorax with most pronounced changes seen at anterior, medial aspect of the mid part of the left hemithorax with the dominant solid-appearing soft tissue mass measuring approximately 4.4 cm at its maximum transverse dimension with SUV max of 9.4, inseparable from the adjacent mediastinal pleura. Additional solid masslike FDG avid pleural thickenings are also present especially involving anterior inferior costophrenic sulcus, measures approximately 2.6 x 1.3 cm with SUV max of 7.3. In addition, multiloculated FDG avid pleural effusion is also present with most pronounced changes seen within the base of the pleural space. The findings are most consistent with either primary or metastatic pleural malignancy. 2. Partial collapse consolidation involving both left lower greater than upper lobes. 3. No FDG avid mediastinal and/or hilar or axillary or internal mammary lymphadenopathy or FDG avid disease within the contralateral right lung or pleural space. 4. Subcentimeter non-FDG avid nodular opacity within the superior segment of right lower lobe of the lung with underlying subpleural cystic changes. 5. Indeterminate moderately intense FDG avidity involving likely proximal ascending colon at right iliac fossa with SUV max of 6.5, for which direct visualization/colonoscopy is recommended for further clarification, if not recently performed. 6. Moderately intense diffuse increased FDG avidity throughout the entire axial skeleton as well as both proximal femur, may represent bone marrow infiltrat stefanie/replacement process versus physiologic hyperplastic changes. 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 Then diagnostic and therapeutic thoracentesis on the left side: Positive for malignant cells consistent with adenocarcinoma of lung origin Bone marrow biopsy under CT scan guidance by IR was done on 10/26. It revealed RAEB. He will return in 3 weekS for a follow-up visit. Thank you, - Time Spent With Patient Time Spent with Patient (in minutes): 30
--- NOTE | 2022-12-22 11:23 | MHC.HEMONC ---
Pt request Labs and T&S via port. Port to right chest accessed, good blood return. Labs and T&S drawn. Port left accessed in case patient needs anything. Will remove after follow up today.
[2022-12-22 11:30] LABS: Basophils Percent Auto 0.2 % (0-2); Hematocrit 23.2 % (42.0-52.0); PLT CLUMP 1; SCAN SMEAR FLAG 1
[2022-12-22 11:32] LABS: Eosinophils Absolute Auto 0.1 X10*3/uL (0.0-0.4); Eosinophils Percent Auto 2.4 % (0-4); Hemoglobin 7.4 g/dl (14.0-18.0); Imm Gran Abs Auto 0.11 X10*3/uL (0.00-0.03); Imm Gran Pct Auto 1.9 % (0.0-0.4); Lymphocytes Absolute Auto 0.9 X10*3/uL (1.2-4.9); Lymphocytes Percent Auto 15.7 % (20-40); MANUAL DIFF FLAG SCAN; Mean Corpuscular HGB Conc 31.9 g/dl (31.0-36.0); Mean Corpuscular Hemoglobin 29.8 pg (27.0-33.0); Mean Corpuscular Volume 93.5 fL (80.0-98.0); Monocytes Absolute Auto 0.6 X10*3/uL (0.1-1.2); Monocytes Percent Auto 10.4 % (2-11); NRBC Pct Auto 0.7 /100WBC (0.0-0.2); Neutrophils Absolute Auto 4.1 x10*3/uL (2.0-8.3); Neutrophils Percent Auto 69.4 % (45-73); Red Blood Count 2.48 X10*6/uL (4.60-5.80)
[2022-12-22 11:34] LABS: White Blood Count 5.9 X10*3/uL (4.8-10.8)
[2022-12-22 11:36] LABS: Platelet Count 35 X10*3/uL (160-400)
--- NOTE | 2022-12-22 11:37 | MHC.HEMONC ---
Addendum entered by Tawanna Daley RN 12/22/22 16:09: Labs reviewed: HGB 7.2, 1 unit of RBC ordered and transfused. Pt toll well. Pt has macular rash on bilat arms. Pt and Candy instructed to continue hydrocortisone cream and take benadryl at night for itching. Port to right chest De accessed flushed with saline and heparin. Pt has home draws on Tuesdays and would like follow ups on if possible. Next follow up and T&S on 01/07/23. Summary given and pt departed. Original Note: CXR ordered by Dr Marks. Pt to take to RAD then return. Labs pending.
[2022-12-22 11:58] LABS: SLIDE REVIEW VERIFIED
[2022-12-22 12:01] LABS: Alanine Aminotransferase 26 U/L (0-40); Alkaline Phosphatase 87 U/L (39-117); Anion Gap 12 (12-20); Aspartate Amino Transferase 26 U/L (5-37); Bilirubin Total 0.9 mg/dL (0.0-1.0); Blood Urea Nitrogen 10 mg/dL (9-16); Calcium 8.2 mg/dL (8.4-10.2); Carbon Dioxide 26 mmol/L (22-29); Chloride 98 mmol/L (96-108); Creatinine Clr Calc Pharmacy 54.6; Estimated Glomerular Filt Rate > 60; Glucose Random 105 mg/dL (60-115); Sodium 132 mmol/L (135-145); Total Protein 7.1 g/dL (6.5-8.0)
[2022-12-22 12:37] VITALS: BP 130/62; PULSE 86; RESP 17; TEMP 37.2
[2022-12-22 12:57] VITALS: BP 110/52; PULSE 86; RESP 18; TEMP 36.7
--- NOTE | 2022-12-22 14:45 | MHC.HEMONCMA ---
patient seen today for macrocytic anemia, vss, labs, follow up with provider hazel
[2022-12-22 15:31] VITALS: BP 108/56; PULSE 80; RESP 17; TEMP 37.2
--- NOTE | 2023-01-07 11:20 | PM.HEMONCPN ---
Medical Summary - Medical Summary Date of Service: 01/07/23 Chief complaint: Follow-up for: 1. Lung cancer. 2. MDS. Primary Care Provider: Douglas Schultz PA-C Medical Summary: DIAGNOSIS: 1. MACROCYTIC ANEMIA. ACD. Dyserythropoeisis. 2. Non small cell Lung Cancer. CURRENT THERAPY: 1. Procrit received:On 12/12, 01/12, and 02/17 and 05/15/22. Off it now. 2. Recieved 1st cycle of chemotherapy with Carbo/Alimta and Pembrolizumab on 10/30. Interval History Interval history: Celestino Gage is a pleasant 82 year old gentleman, here for a follow-up visit. Patient is more or less stable. However he ate breakfast before getting in the car. He got sick and threw up. He does feel rather tired. He does walk around the house but sleeps a lot. Complains of pain in his back. He is more comfortable laying down. No fever no chills.. His breathing is okay. O2 sat was 91-92% at home. He denies abdominal pain. He is taking anti emetic twice a day on a schedule. His appetite is reasonable. Weight is stable. No dysuria or hematuria. He has had sciatica and right hip pain, for years. No focal weakness. He denies depression. No skin rashes nor pruritus. He says he is taking 1 day at a time. RECENT HISTORY: He had chemotherapy, on 10/30. He was subsequently, admitted to the hospital on 11/05. He was discharged 11/10. Discharge summary: Patient was admitted due to nausea vomiting diarrhea and pancytopenia: Possible above symptoms are related to chemotherapy. Patient did not had any nausea vomiting and diarrhea afterwards and instead has constipated - which is being treated with laxatives. oxycodone adjusted. monitor for constipation closely by the oxycodone. continue laxatives- hold if patient develops diarrhea. pancytopenia: Seems to be improving- patient received 3 PRBC and 2 units of platelets during this admission: H&H is stable around 7.7, denies any gross bleeding. Platelets are in 16 range( discussed with the hemtology Dr real -no gross bleeding so moniter cbc outpatient in 1 week). Patient is going to the rehab under 1135 Medicare waiver covid for rehab placement added. He was discharged to [facility]. However he came home a to 4 days. He did not like it there. INTERIM HISTORY: He has ongoing pain in the mid left chest wall. He feels a tender spot there. When he breaths in and leans forwarded, it get relieved. He grades the pain level as 5 on 1-10 scale. Tylenol slowed it down however he has to take 1 g every 5 hours, to keep it at bay. He had called complaining about pain in 1 of his teeth. It felt loose. He felt it was infected. He also noted a sinus infection. I started him on Augmentin 875 b.i.d. about a week ago. He feels short of breath on exertion. He has an occasional cough. No sputum. Previous history: He had a bone marrow exam done, on 09/18. The results: Pathology: Hypercellular, erythroid predominant marrow with diserythropoiesis. No increase in blasts or infiltrative process. Reduced storage iron. Flow cytometry is negative for a lymphoproliferative disorder or increased blasts. Cytogenetics and MDS fish panel are negative. PAST MEDICAL HISTORY: He mentioned that his hemoglobin has been trickling down over the years. Review of his labs in the computer revealed: 06/16, CBC: WBC 10.4, HGB 11, HCT 34.2, MCV 103.6, PLT 135. Ferritin: 184. B12 1130. Folate >20. Previous blood count: 04/23/2021 hemoglobin 10.9. 10/15/2020: Hemoglobin 11.9. 01/12/19: Hemoglobin 13. He has been taking half a iron tablet, every other day for the past couple of months. His blood pressure has been well controlled. He is off the lisinopril now. His blood pressure is normal now. FAMILY HISTORY: Denies any known heme Onc problems in the family. 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 He is . Has no children. He denies smoking. No alcohol. He has a busy lifestyle. They have a dog that they love, who keeps them active. They are taking him for walks. Review of Systems - Constitutional Reports no additional constitutional complaints, Reports fatigue, Reports lack of energy, Reports weakness, Reports weight loss - Eyes Reports no additional eye complaints - ENT Reports no additional ear, nose, mouth, and throat complaints - Cardiovascular Reports no additional cardiovascular complaints - Respiratory Reports no additional respiratory complaints - Gastrointestinal Reports no additional gastrointestinal complaints - Genitourinary Genitourinary: Reports no additional male genitourinary complaints - Musculoskeletal Reports no additional musculoskeletal complaints - Integumentary/Breasts Skin/Breast: Reports no additional skin complaints - Neurologic Reports no additional neurologic complaints, Reports weakness - Psychiatric Reports no additional psychiatric complaints - Endocrine Reports no additional endocrine complaints - Hematologic/Lymphatic Reports no additional hematologic/lymphatic complaints - Allergic/Immunologic Reports no additional allergic/immunologic complaints [facility] Medical History: Medical History (Last Reviewed 01/07/23 @ 11:23 by Eduardo Mejias) BPH (benign prostatic hyperplasia) COVID-19 vaccine series completed Elevated cholesterol H/O prostate cancer HTN (hypertension) Hypothyroid Lung cancer Non-small cell lung cancer (NSCLC) Pancytopenia Port-A-Cath in place PVD (peripheral vascular disease) Functional capacity: wheelchair bound Patient : No Surgical History: Surgical History (Last Reviewed 01/07/23 @ 11:23 by Eduardo Mejias) H/O colonoscopy History of bone marrow biopsy History of carotid endarterectomy History of thoracentesis Hx of cataract extraction Hx of prostatectomy Hx of umbilical hernia repair Social History: Social History (Last Reviewed 01/07/23 @ 11:23 by Eduardo Mejias) Living Situation History: Household Members: Spouse Housing: House Are you a primary pharmacist critical care to a significant other at home: No Do you presently have visiting nurse or other home services: No Alcohol History Details: 1. How often do you have a drink containing alcohol?: a. Never Tobacco History: Patient Tobacco Use Status: Never used Tobacco e-Cigarette/Vaping Use: Never Used Second Hand Smoke Exposure: No Substance Use History: Use of substances other than those prescribed or required for medical reasons: No Domestic Abuse History: Have you been hit, kicked, punched, or otherwise hurt by someone within the past year? If so, by whom?: No Do you feel safe in your current relationship?: Yes Advance Directives: Advance Directives Date on File: 09/18/21 Homicidal Assessment: Do you have thoughts of harming others: None Do you have a plan to hurt others: No Plan Do you have the means to hurt others: No Nutrition Assessment: Recently lost weight without trying: No Patient : No Occupation Assessmet: service: No Current occupational status: retired Oncology Screenings - ECOG Performance Status ECOG Performance Status: 1 Home Medications and Allergies Home Medications Medication Instructions Recorded Confirmed Type ascorbic acid (vitamin C) 1,000 mg 1 g PO DAILY 07/30/21 01/07/23 History tablet (Vitamin C) aspirin 325 mg capsule 325 mg PO DAILY 07/30/21 01/07/23 History cholecalciferol (vitamin D3) 50 50 mcg PO DAILY 07/30/21 01/07/23 History mcg (2,000 unit) capsule (Vitamin D3) cyanocobalamin (vitamin B-12) 1,000 mcg PO DAILY 07/30/21 01/07/23 History 1,000 mcg capsule ferrous sulfate 325 mg (65 mg 32 mg PO Q OTHER DAY 07/30/21 01/07/23 History iron) tablet multivitamin 1 tab PO DAILY 07/30/21 01/07/23 History acetaminophen 500 mg tablet 500 mg PO Q6H PRN Pain 10/20/22 01/07/23 History ondansetron 8 mg disintegrating 8 mg PO Q8H PRN Nausea 11/06/22 01/07/23 History tablet Allergies Allergy/AdvReac Type Severity Reaction Status Date / Time No Known Allergies Allergy Verified 01/07/23 11:23 [No Known Allergies*] Exam Vital signs: Vital Signs Temp 99.0 F 12/22/22 15:31 Pulse 80 12/22/22 15:31 Resp 17 12/22/22 15:31 BP 108/56 L 12/22/22 15:31 Pulse Ox 91 L 12/22/22 11:14 O2 Del Method Room Air 12/22/22 11:14 Weight 53.8 kg BMI result Body Mass Index 17.5 - Constitutional Present: no acute distress - Routine HEENT Exam Head: Present: normal inspection Eye: Present: normal appearance ENT: Present: mucous membranes moist - Routine Neck Exam Present: full ROM - Routine Chest/Breast/Axilla Exam Chest wall: Present: tenderness - Routine Respiratory Exam Present: CTAB - Routine Cardiovascular Exam Cardiovascular: Present: RRR, S1, S2 - Routine Abdominal Exam Present: nontender - Routine Extremities Exam Present: nontender - Routine Back/Spine/Pelvis Exam Back/Spine: Present: full ROM - Routine Skin Exam Present: intact, normal turgor - Routine Neurological Exam Present: alert, oriented X3 - Detailed Neurological Exam: Coma Scale Eye Opening: Spontaneous (4) - Routine Psychiatric Exam Present: normal affect Data - Labs CBC & Chem 7: 01/07/23 11:30 01/07/23 11:30 Assessment and Plan Patient Active problem list reviewed?: Yes (1) Macrocytic anemia Status: Acute Assessment and plan: This is a pleasant 81-year-old gentleman with a history of macrocytic anemia. DIFFERENTIAL DIAGNOSIS: 1. B12 FOLATE DEFICIENCY: B12 LEVEL 1130. FOLATE: >20. 2. UNDERLYING MYELO INFILTRATIVE DISORDER: MDS can present with macrocytosis. Differential multiple myeloma. 3. THYROID DISEASE CAN GIVE RISE TO MACROCYTOSIS. 4. COPD: Can also cause increased red cell size. 5. MULTIFACTORIAL ANEMIA: With combined iron deficiency. Iron studies: 141/326/47/209. He has been taking half a iron tablet, every other day for the past month. I proceeded with further evaluation. Checked SIEP: no monoclonal spike. Checked LDH: 245. Checked TSH: 1.12 and T4. He is holding stable. His CBC reveals an elevated WBC count and thrombocytopenia. I was concerned about an underlying bone marrow disorder. He had a bone marrow exam done, on 09/18. He is here to review the results. Pathology: Hypercellular, erythroid predominant marrow with diserythropoiesis. No increase in blasts or infiltrative process. Reduced storage iron. Flow cytometry is negative for a lymphoproliferative disorder or increased blasts. Cytogenetics and MDS fish panel are negative. Review of his labs from 09/18, revealed: WBC 12.4, Hemoglobin of 9.8/29.8, PLT 136. BUN 25, REAL ESTATE LISTING CONSULTANT 1.17, creatinine clearance 47.4. Patient has anemia of chronic disease related to stage III CKD. 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 Procrit would help with both the disorders. Details of the regimen including elevated blood pressure, elevated hemoglobin, headache dizziness, thrombosis were all addressed with him. He understood and was willing to proceed. He received a shot of Procrit on 09/25. Subsequently hemoglobin went up to above 12. His hemoglobin in October was 12.2. On 11/10 it was 12.0. He is doing very well. He received Procrit on 12/12 and 01/12 and 02/17. He has not required it since then. On 09/15, his Hemoglobin was: 11.1. His ferritin: 214. Previous Iron studies: 62/295/21/174. PLAN: Will hold off on further Procrit injections, now that he has been diagnosed with lung cancer, with which it is relatively contraindicated. He will return in 2 weeks for a follow-up visit. Thanks, CC: Joe Schultz (2) Adenocarcinoma of left lung Status: Acute Assessment and plan: 82 year old gentleman who complained of left-sided chest pain. He had diminished breath sounds on the left base. Chest x-ray revealed: Small to moderate left pleural effusion with associated airspace opacity which could represent atelectasis or pneumonia. There may be mild pleural thickening at the periphery of the left upper hemithorax. I proceeded with a CT scan of the chest. This was done on 09/23 and revealed: 3.6 x 2.6 cm left upper lobe mass invading the chest wall pleura and mediastinal pleura suspicious for pulmonary malignancy. Additional areas of abnormal parietal pleural thickening in the left hemithorax suspicious for pleural metastatic disease. Recommend correlation with fluid cytology. Biopsy may be necessary for diagnosis. This was called to Dr. Real at 8:30 AM on 09/29/2022. 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 Moderate nonsimple left pleural effusion suspicious for malignant effusion. Mild emphysema. Mild pulmonary fibrosis. 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 Consider referral to a vascular specialist. l then proceeded with diagnostic and therapeutic thoracentesis on the left side. Cytology revealed: Positive for malignant cells, consistent with adenocarcinoma of lung origin. Lung panel has been sent. PET scan from 10/13: 1. Extensive nodular masslike multifocal FDG avid pleural thickenings are present throughout the entire left hemithorax with most pronounced changes seen at anterior, medial aspect of the mid part of the left hemithorax with the dominant solid-appearing soft tissue mass measuring approximately 4.4 cm at its maximum transverse dimension with SUV max of 9.4, inseparable from the adjacent mediastinal pleura. Additional solid masslike FDG avid pleural thickenings are also present especially involving anterior inferior costophrenic sulcus, measures approximately 2.6 x 1.3 cm with SUV max of 7.3. In addition, multiloculated FDG avid pleural effusion is also present with most pronounced changes seen within the base of the pleural space. The findings are most consistent with either primary or metastatic pleural malignancy. 2. Partial collapse consolidation involving both left lower greater than upper lobes. 3. No FDG avid mediastinal and/or hilar or axillary or internal mammary lymphadenopathy or FDG avid disease within the contralateral right lung or pleural space. 4. Subcentimeter non-FDG avid nodular opacity within the superior segment of right lower lobe of the lung with underlying subpleural cystic changes. 5. Indeterminate moderately intense FDG avidity involving likely proximal ascending colon at right iliac fossa with SUV max of 6.5, for which direct visualization/colonoscopy is recommended for further clarification, if not recently performed. 6. Moderately intense diffuse increased FDG avidity throughout the entire axial skeleton as well as both proximal femur, may represent bone marrow infiltrative/replacement process versus physiologic hyperplastic changes. 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 He has an appointment next for colonoscopy. I reviewed the PET scan with radiology. He has concern for bone marrow metastases. kathi proceeded with CT scan guided bone marrow biopsy of the iliac crest. This was done on 10/26, by IR. Pathology: Hypercellular marrow with 90% cellularity. Dysplastic trilineage hematopoiesis. 5-10% blasts. Molecular testing is pending. He had the Port-A-Cath placed by IR on 10/29. He was treated with Carboplatin, Alimta and pembrolizumab. He received 1st cycle of treatment, on October 30. In view of the recent bone marrow findings, resulting in anemia and thrombocytopenia, I elected to use dose reduction. kathi used 75 percent dose of Alimta, and dose reduce carbo according to the renal function. He had a prolonged mona, after that. His blood counts appears to be getting steady. I checked a chest x-ray today to follow-up on the lung cancer and the effusion, it revealed: - Left effusion slightly decreased from prior exam 10/27/2019. He feels quite fatigued. Hemoglobin is 7.8. Platelets: 48. Upon discussing his condition, him and his do not want any aggressive workup nor intervention. He does not wish to undergo a colonoscopy, nor any systemic chemotherapy. They would like to follow the watch and wait approach. PLAN: He received 1 unit of blood today. I offered hospice care however the feels she is okay for now. I discussed code status with him. He would not want any heroics. His is the healthcare proxy. He will return in 2 weeks for a follow-up visit. Thank you, (3) Abnormal chest x-ray Status: Acute Assessment and plan: 82 year old gentleman who complained of left-sided chest pain. He had diminished breath sounds on the left base. Chest x-ray revealed: Small to moderate left pleural effusion with associated airspace opacity which could represent atelectasis or pneumonia. There may be mild pleural thickening at the periphery of the left upper hemithorax. I proceeded with a CT scan of the chest. This was done on 09/23 and revealed: 3.6 x 2.6 cm left upper lobe mass invading the chest wall pleura and mediastinal pleura suspicious for pulmonary malignancy. Additional areas of abnormal parietal pleural thickening in the left hemithorax suspicious for pleural metastatic disease. Recommend correlation with fluid cytology. Biopsy may be necessary for diagnosis. This was called to Dr. Real at 8:30 AM on 09/29/2022. 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 Moderate nonsimple left pleural effusion suspicious for malignant effusion. Mild emphysema. Mild pulmonary fibrosis. 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 Consider referral to a vascular specialist. l then proceeded with diagnostic and therapeutic thoracentesis on the left side. Cytology revealed: Positive for malignant cells, consistent with adenocarcinoma of lung origin. Lung panel has been sent. PET scan from 10/13: 1. Extensive nodular masslike multifocal FDG avid pleural thickenings are present throughout the entire left hemithorax with most pronounced changes seen at anterior, medial aspect of the mid part of the left hemithorax with the dominant solid-appearing soft tissue mass measuring approximately 4.4 cm at its maximum transverse dimension with SUV max of 9.4, inseparable from the adjacent mediastinal pleura. Additional solid masslike FDG avid pleural thickenings are also present especially involving anterior inferior costophrenic sulcus, measures approximately 2.6 x 1.3 cm with SUV max of 7.3. In addition, multiloculated FDG avid pleural effusion is also present with most pronounced changes seen within the base of the pleural space. The findings are most consistent with either primary or metastatic pleural malignancy. 2. Partial collapse consolidation involving both left lower greater than upper lobes. 3. No FDG avid mediastinal and/or hilar or axillary or internal mammary lymphadenopathy or FDG avid disease within the contralateral right lung or pleural space. 4. Subcentimeter non-FDG avid nodular opacity within the superior segment of right lower lobe of the lung with underlying subpleural cystic changes. 5. Indeterminate moderately intense FDG avidity involving likely proximal ascending colon at right iliac fossa with SUV max of 6.5, for which direct visualization/colonoscopy is recommended for further clarification, if not recently performed. 6. Moderately intense diffuse increased FDG avidity throughout the entire axial skeleton as well as both proximal femur, may represent bone marrow infiltrative/replacement process versus physiologic hyperplastic changes. 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 Then diagnostic and therapeutic thoracentesis on the left side: Positive for malignant cells consistent with adenocarcinoma of lung origin Bone marrow biopsy under CT scan guidance by IR was done on 10/26. It revealed RAEB. He will return in 3 weekS for a follow-up visit. Thank you, - Time Spent With Patient Time Spent with Patient (in minutes): 25
[2023-01-07 11:21] VITALS: BP 149/71; PULSE 99; TEMP 36.1; O2SAT 93
[2023-01-07 11:52] LABS: Hematocrit 24.6 % (42.0-52.0); Hemoglobin 7.8 g/dl (14.0-18.0); Mean Corpuscular HGB Conc 31.7 g/dl (31.0-36.0); Mean Corpuscular Hemoglobin 30.4 pg (27.0-33.0); Mean Corpuscular Volume 95.7 fL (80.0-98.0); Mean Platelet Volume 11.1 fL (9.4-12.4); NRBC Pct Auto 0.7 /100WBC (0.0-0.2); Red Blood Count 2.57 X10*6/uL (4.60-5.80); White Blood Count 8.5 X10*3/uL (4.8-10.8)
[2023-01-07 11:53] LABS: Platelet Count 48 X10*3/uL (160-400)
[2023-01-07 12:07] LABS: Alanine Aminotransferase 28 U/L (0-40); Albumin Level 2.7 g/dL (3.5-5.0); Alkaline Phosphatase 110 U/L (39-117); Anion Gap 16 (12-20); Aspartate Amino Transferase 25 U/L (5-37); Bilirubin Total 0.9 mg/dL (0.0-1.0); Blood Urea Nitrogen 15 mg/dL (9-16); Calcium 8.3 mg/dL (8.4-10.2); Carbon Dioxide 24 mmol/L (22-29); Chloride 97 mmol/L (96-108); Estimated Glomerular Filt Rate > 60; Glucose Random 153 mg/dL (60-115); Potassium 3.9 mmol/L (3.3-5.1); Sodium 133 mmol/L (135-145); Total Protein 7.7 g/dL (6.5-8.0)
[2023-01-07 12:41] VITALS: BP 131/78; PULSE 92; RESP 17; TEMP 36
[2023-01-07 12:41] LABS: Band Neutrophils Percent 2 % (3-5); Eosinophils Absolute Manual 0.2 X10*3/uL (0.0-0.4); Eosinophils Percent Manual 2 % (0-4); Lymphocytes Absolute Manual 0.7 X10*3/uL (1.2-4.9); Lymphocytes Percent Manual 8 % (20-40); Monocytes Absolute Manual 0.3 X10*3/uL (0.1-1.2); Monocytes Percent Manual 3 % (2-11); Neutrophils Absolute Manual 7.4 X10*3/uL (2.0-8.3); Neutrophils Percent Manual 85 % (45-73)
[2023-01-07 12:45] LABS: Hypochromasia 1+ (5-14) /OIF; Macrocytosis 1+ (5-14) /OIF; Microcytosis 1+ (5-14) /OIF; Platelet Estimate DECREASED (NORMAL); Platelet Morphology Comment NORMAL; Polychromasia 1+ (0-2) /OIF; RBC Morphology NOTED
[2023-01-07 12:57] VITALS: BP 122/69; PULSE 90; RESP 17; TEMP 36.2
--- NOTE | 2023-01-07 14:10 | MHC.HEMONCMA ---
patient seen today for macrocytic anemia, vss, labs, following up tbd by provider
[2023-01-07 14:22] VITALS: BP 138/79; PULSE 82; RESP 18; TEMP 36.6
--- NOTE | 2023-01-07 14:30 | MHC.HEMONC ---
Pt here for provider follow up and lab draw. Port accessed with blood return noted. Labs drawn from port-specimen to lab. Dr aMrks into see pt. Pt and decline further chemotherapy treatments. Lab results reported to Dr Marks. H & H 7.8/24.6/Platelets 48-plan for one unit RBC's-pt and in agreement. Consent for blood transfusion obtained. Adriana signs as noted. One unit RBC's transfused with continued stable vital signs. Port flushed with heparin and de accessed. Follow up appointments scheduled. Pt receives at home lab draw weekly-per Dr Marks which we will monitor. Discharge packet given with next appointment.
--- NOTE | 2023-02-02 14:22 | HE.ONCSEC ---
Received fax from [facility] they did not draw pt labs on 02/02/23 because paper from Laboratory indicated Patient was in Rehab.
== END 2023-02-12 | disposition home or self-care (01) ==
LOC: HO.ONC 11:30
PROVIDERS: PCP Physician Assistant; Referring Provider Physician Assistant; Visit Provider Internal Medicine Medical Oncology
DX: D46.20 Refractory anemia with excess of blasts, unspecified (principal); C34.12 Malignant neoplasm of upper lobe, left bronchus or lung; N18.30 Chronic kidney disease, stage 3 unspecified; D63.1 Anemia in chronic kidney disease; Z79.899 Other long term (current) drug therapy
CPT/HCPCS: 36415; 36430; 36591; 80053; 80061; 82378; 82728; 82784; 83540; 83615; 84439; 84443; 85007; 85025; 85027; 86334; 86704; 86706; 86850; 86900; 86901; 86923; 87340; 96372; 96375; 96411; 96413; 96415; 96417; 99204; 99213; 99214; J0885; J1100; J1200; J1642; J2405; J9045; J9271; J9305; P9016; P9073; Q3014